=== PATIENT | male | born 1955 | race Caucasian/White ===

== ENCOUNTER 2018-02-09 21:27 | Inpatient (IN) | payer OTHER, SELFPAY ==
--- NOTE | 2018-02-09 22:08 | RAD ---
FRONTAL RADIOGRAPH CHEST: 02/09/2018 HISTORY: Leg swelling and difficulty breathing. COMPARISON: None. FINDINGS: Azygos lobe and fissure noted. The cardiac silhouette is prominent. Hazy bibasilar density noted wi th blunting of the costophrenic angle, suggesting small bilateral pleural effusions. Mild pulmonary vascular congestion. IMPRESSION: Prominent cardiac silhouette with pulmonary vascular congestion and mild bibasilar pleural and parenc hymal opacity. Findings suggest pulmonary edema. Follow-up imaging following treatment advised, to document resolution. POS: MEI
[2018-02-09 22:15] LABS: #Lymphocytes 0.5 thou/uL (1.20-3.40); #Monocytes 0.9 thou/uL (0.11-0.59); #Neutrophils 10.3 thou/uL (1.40-6.50); %Basophils 0.1 % (0.0-1.0); %Eosinophils 0.1 % (0.0-10.0); %Lymphocytes 3.8 % (21.0-51.0); %Monocytes 7.4 % (0.0-10.0); %Neutrophils 88.5 % (42.0-75.0); Hemoglobin 17.3 g/dL (14.0-18.0); Mean Corpuscular HGB CONC 31.6 g/dL (32.0-36.0); Mean Corpuscular Hemoglobin 30.7 pg (27.0-31.0); Mean Corpuscular Volume 97.2 fL (78.0-98.0); Mean Platelet Volume 8.7 fL (7.4-10.4); Platelet Count 142 thou/uL (130-400); RBC Distribution Width 13.7 % (11.5-14.5); Red Blood Cell (RBC) Count 5.65 mill/uL (4.70-6.10); White Blood Cell (WBC) Count 11.7 thou/uL (4.8-10.8)
[2018-02-09] MEDS ORDERED: Furosemide 40 MG/4 ML VIAL ONE (22:18)
[2018-02-09] MEDS ORDERED: Enoxaparin Sodium 100 MG/ML SYRINGE ONE (22:18)
[2018-02-09] MEDS ORDERED: Diltiazem 125 MG/25 ML ONE (22:18)
[2018-02-09] MEDS ORDERED: Diltiazem HCl 125 MG, Admixture Fee 1 EACH in Sodium Chloride 0.9% 100 ML IVPB SCH (22:30)
[2018-02-09 22:31] LABS: ALT (SGPT) 59 U/L (8-55); AST (SGOT) 44 U/L (5-34); Albumin 3.6 g/dL (3.4-4.8); Alkaline Phosphatase 90 U/L (40-150); Anion Gap 22 mmol/L (10-20); BUN (Urea Nitrogen) 58 mg/dL (8.4-25.7); Bilirubin, Total 3.1 mg/dL (0.2-1.2); CK (CPK) 151 U/L (30-200); Calc. Creatinine Clearance 0 mL/min (70-130); Calcium 9.6 mg/dL (7.8-10.44); Carbon Dioxide 18 mmol/L (23-31); Chloride 89 mmol/L (98-107); Estimated GFR-MDRD 51; Globulin 3.2 g/dL (2.4-3.5); Glucose 110 mg/dL (80-115); Potassium 4.8 mmol/L (3.5-5.1); Protein, Total 6.8 g/dL (5.8-8.1); Sodium 124 mmol/L (136-145)
[2018-02-09 22:34] LABS: Troponin I 0.016 ng/mL (< 0.028)
[2018-02-09 22:46] LABS: CKMB 7.8 ng/mL (0-6.6)
[2018-02-10] MEDS ORDERED: Piperacillin/Tazobactam 4.5 GM VIAL ONE (00:16)
[2018-02-10] MEDS ORDERED: Sodium Chloride 0.9% 100 ML ONE (00:16)
[2018-02-10] MEDS ORDERED: Ondansetron ODT 4 MG TAB PO PRN (00:43)
[2018-02-10 01:02] LABS: Bilirubin Small (Negative); Blood, Urine Negative (Negative); Clarity CLOUDY (Clear); Glucose, Urine (Dipstick) Negative (Negative); Leukocyte Negative (Negative); Nitrite Negative (Negative); Protein, Urine (Dipstick) 30 mg/dL (Neg-Trace); Specific Gravity, Urine 1.014 (1.002-1.036); pH, Urine 5.5 (5.0-9.0)
[2018-02-10 01:05] LABS: Bacteria/HPF None Seen HPF (None Seen); Squamous Epithelial 0-3 HPF (0-3); WBC/HPF 0-3 HPF (0-3)
[2018-02-10 01:06] LABS: Pathc Cast-AUWi Flag 5.08 (0-2.49)
[2018-02-10 01:16] LABS: Other Casts/LPF None Seen LPF (0-3 Hyaline)
[2018-02-10 03:07] LABS: #Lymphocytes 0.6 thou/uL (1.20-3.40); #Monocytes 0.9 thou/uL (0.11-0.59); #Neutrophils 9.4 thou/uL (1.40-6.50); %Basophils 0.1 % (0.0-1.0); %Lymphocytes 5.2 % (21.0-51.0); %Monocytes 8.1 % (0.0-10.0); %Neutrophils 86.6 % (42.0-75.0); Hemoglobin 16.5 g/dL (14.0-18.0); Mean Corpuscular HGB CONC 32.7 g/dL (32.0-36.0); Mean Corpuscular Hemoglobin 31.6 pg (27.0-31.0); Mean Corpuscular Volume 96.8 fL (78.0-98.0); Mean Platelet Volume 8.7 fL (7.4-10.4); Platelet Count 150 thou/uL (130-400); RBC Distribution Width 13.6 % (11.5-14.5); Red Blood Cell (RBC) Count 5.21 mill/uL (4.70-6.10); White Blood Cell (WBC) Count 10.9 thou/uL (4.8-10.8)
[2018-02-10 03:16] LABS: Lactic Acid 2.4 mmol/L (0.5-2.2)
[2018-02-10 03:29] LABS: Albumin 3.3 g/dL (3.4-4.8); Anion Gap 18 mmol/L (10-20); BUN (Urea Nitrogen) 55 mg/dL (8.4-25.7); BUN/Creatinine Ratio 43.31; Calc. Creatinine Clearance 93 mL/min (70-130); Carbon Dioxide 19 mmol/L (23-31); Chloride 90 mmol/L (98-107); Estimated GFR-MDRD 57; Glucose 121 mg/dL (80-115); Magnesium 1.7 mg/dL (1.6-2.6); Phosphorus 4.6 mg/dL (2.3-4.7); Potassium 4.1 mmol/L (3.5-5.1); Sodium 123 mmol/L (136-145)
[2018-02-10] MEDS ORDERED: Heparin 10,000 UNITS/ 10 ML VIAL SLOW IVP SCH ×2 (04:00→10:00)
[2018-02-10] MEDS ORDERED: Heparin 25,000 units/D5W 500 ML IVPB SCH ×2 (04:00→10:00)
[2018-02-10 04:45] LABS: CKMB 6.6 ng/mL (0-6.6); Troponin I 0.018 ng/mL (< 0.028)
[2018-02-10] MEDS: Furosemide 40 MG/4 ML VIAL SLOW IVP SCH ×2 (05:51→15:15)
[2018-02-10 06:11] LABS: Hemoglobin 15.4 g/dL (14.0-18.0); Platelet Count 133 thou/uL (130-400)
[2018-02-10 06:18] LABS: Anion Gap 16 mmol/L (10-20); BUN (Urea Nitrogen) 54 mg/dL (8.4-25.7); Calc. Creatinine Clearance 99 mL/min (70-130); Calcium 8.6 mg/dL (7.8-10.44); Carbon Dioxide 22 mmol/L (23-31); Chloride 91 mmol/L (98-107); Estimated GFR-MDRD 62; Glucose 105 mg/dL (80-115); Potassium 3.8 mmol/L (3.5-5.1); Sodium 125 mmol/L (136-145)
--- NOTE | 2018-02-10 06:42 | HP ---
CHIEF COMPLAINT: Shortness of breath. HISTORY OF PRESENT ILLNESS: This is a 62-year-old male with past medical history of hyperlipidemia, diverticulitis, hypertension, anemia presenting with shortness of breath, which has been ongoing for the past 10 days prior to the day of admission. Per patient, he has been noticing that he has been g etting edema in his legs, lower extremity for the past 3 weeks. The patient stated that now the tomas a has gotten so worse that his scrotum is also filled with fluid. The patient states that he last sa w his primary care doctor, Dr. Patel Eddy in 2017. After that he has not seen a doctor in almost a y ear. Per the patient, now he gets shortness of breath with lying down with exertion and this prompte d him to come to the ED to be evaluated. In addition, the patient also had associated symptoms of hi s heart beating very fast. The patient denies any headache, nausea, vomiting, chest pain. REVIEW OF SYSTEMS: The patient admits to heart beating fast, shortness of breath, abdominal discomfo rt, edema in the lower extremities and also in his abdomen. Otherwise, as documented in the HPI. Al l other systems were reviewed and are negative. PAST MEDICAL HISTORY: Hypertension, hyperlipidemia, anemia. FAMILY HISTORY: Reviewed and are negative to this visit. PAST SURGICAL HISTORY: No past surgical history. PSYCHIATRIC HISTORY: The patient has history of anxiety, bipolar. SOCIAL HISTORY: The patient denies any illicit drug use. The patient denies any smoking history; ho wever, per patient, he has been drinking a lot for the past couple of years. The patient stated that he recently quit a month ago and he does not have the appetite to drink. The patient states that he drank very severely because he lost his . ALLERGIES: NAPROXEN. CURRENT MEDICATIONS: The patient takes vitamin B12, iron tablets, multivitamins and thiamine. PHYSICAL EXAMINATION: VITAL SIGNS: Blood pressure is 202/175, pulse of 127, respiratory rate of 18, temperature of 97.5, a nd oxygen saturation of 97 on room air. GENERAL: The patient is lying in bed, reading a book. The patient does not appear to be in any acut e distress. The patient states that he is feeling well, has shortness of breath, but currently resol ving. The patient is able to speak in full sentences. HEENT: Normocephalic, atraumatic. Pupils are equal, round, and reactive to light. Extraocular move ments are intact. No scleral icterus. No JVD noted. Trachea is midline. Supple. LUNGS: The patient has rales bilaterally in the posterior lung banda. No wheezing appreciated. CARDIAC: Irregularly irregular heart rhythm. The patient is tachycardic. ABDOMEN: The patient has ascites noted extending to his back. Abdomen is slightly distended, obese abdomen, nontender. No peritoneal sign. No palpable masses, positive bowel sounds in all quadrants. GENITOURINARY: The patient has edema in the scrotum. EXTREMITIES: Upper extremity and lower extremity, patient has 5/5 upper extremity strength and 5/5 l ower extremity strength. The patient has edema about 4+ pitting edema at the lower extremity. NEUROLOGIC: Cranial nerves II-XII grossly intact. No neurologic deficits noted. SKIN: The patient has a healing excoriated rash on his back. PSYCHIATRIC: The patient has normal affect, alert and oriented x3. IMAGING: Ultrasound of the abdomen showed thickened gallbladder wall. No pancreatitis. Common bile duct that measures 5-8 mm ascites noted. ED COURSE: The patient received vancomycin and Zosyn, diltiazem, normal saline, Lasix of 80, Lovenox , and aspirin. LABORATORY DATA: WBC is 11.7, hemoglobin is 17.3, hematocrit is 54.9, RDW is 13.7, platelet count of 142. Sodium of 124, potassium of 4.8, chloride of 89, carbon dioxide of 18, anion gap of 22, BUN is 58, creatinine is 1.41, GFR is 51, glucose is 110, lactic acid of 3.1, AST of 44, ALT of 59. Creati ne kinase of 151, CK-MB of 7.8. Troponin x1 0.016. BNP is 4384. Urinalysis: Leukoesterase is nega tive, nitrite negative. ASSESSMENT AND PLAN: This is a 62-year-old male being admitted for: 1. Respiratory failure, likely hypoxemic. The patient was satting in the low 90s, high 80s and dell ent has to be placed on oxygen. 2. Acute congestive heart failure, most likely systolic and diastolic congestive heart failure. Cur rently, we will start the patient on congestive heart failure medications. We have consulted Cardiol amy. We have consulted the congestive heart failure clinic. We will give the patient Lasix 80 IV. Alicea has been placed. We will continue the patient on Lasix 40 b.i.d. We will continue labs. We w ill follow up on labs in the morning. The patient is going to be admitted to the [facility] to be monitore d closely. 3. Atrial fibrillation. We started the patient on heparin protocol due to patient's creatinine that is elevated at 1.41, we will do heparin instead of Lovenox. We have consulted Cardiology, will foll ow up with cardiology's recommendations. 4. Hypervolemic hyponatremia likely due to overloaded state. At this point, we are given the patien t Lasix. We will follow up on morning labs to see sodium levels. We have consulted Nephrology regar ding patient's creatinine which is 1.41 and the patient is currently receiving Lasix, so it is very i mportant for Cardiology and Nephrology to work together to get patient from overloaded state with Las ix at the same time not to destroy the patient's renal function. We will follow up with Nephrology's recommendations. 5. Questionable cholecystitis. Ultrasound showed the patient has gallbladder wall thickening. The patient has been started on vancomycin and Zosyn. At this point, we will continue the patient on ant ibiotic and we will monitor the patient closely. The patient's lactic acid is 3.1 and is trending do wn in the setting of 2.4. We will continue to follow the patient very closely. The patient does not have any fever at this time. 6. Hypertension. The patient came in with uncontrolled blood pressure. The patient was started on diltiazem to control his atrial fibrillation with rapid ventricular response. At this point, the pat ient's blood pressure is controlled. We will continue to monitor the patient's blood pressure closel y. We will continue blood pressure medication as needed. 7. History of anxiety and bipolar disorder. Currently, the patient is stable. Continue to monitor the patient. 8. Deep venous thrombosis and gastrointestinal prophylaxis. We will do Pepcid for gastrointestinal prophylaxis and we will do heparin protocol for deep venous thrombosis prophylaxis.
--- NOTE | 2018-02-10 07:30 | ULT ---
RIGHT UPPER QUADRANT ULTRASOUND: DAET: 02/09/2018. COMPARISON: None. HISTORY: Elevated bilirubin. TECHNIQUE: Multiplanar, cheung scale sonographic imaging of the right upper quadrant obtained. FINDINGS: Imaged pancreas is unremarkable. The distal body and tail are obscured by bowel gas. No focal liver lesion is seen. There is free fluid adjacent to the liver and there is a prominent ri ght pleural effusion. There is bidirectional flow within a patent portal vein. Gallbladder wall is thickened measuring in the 5 mm range. Common bile duct measures 6-7 mm, upper limits of normal. Ri ght kidney measures approximately 10.1 cm in craniocaudal dimension and demonstrates no stone, hydron ephrosis, or mass. Ascites is seen in the right upper quadrant, left lower quadrant, and left upper quadrant. [employer] reports a negative Flowers's sign. Small-volume sludge noted within the gallbl adder with no evidence for cholelithiasis. IMPRESSION: Ascites and right pleural effusion. Nonspecific gallbladder wall thickening, which may be secondary to systemic process/volume overload. No cholelithiasis or biliary dilatation. POS: MEI
[2018-02-10] MEDS ORDERED: Eucerin (Mineral Oil/Petrolatum,White) 30 gm Jar TOP PRN (08:01)
[2018-02-10] MEDS ORDERED: Famotidine 20 MG TAB PO PRN (08:01)
[2018-02-10] MEDS ORDERED: Artificial Tears 18 DROP/0.9 ML EA EYE PRN (08:01)
[2018-02-10] MEDS ORDERED: Calcium Carbonate 500 MG ChewTAB PO PRN (08:01)
[2018-02-10] MEDS ORDERED: Chloraseptic Spray 180 ml Bottle PO PRN (08:01)
[2018-02-10] MEDS ORDERED: Senokot 8.6 MG TAB PO PRN (08:01)
[2018-02-10] MEDS ORDERED: Loratadine 10 MG TAB PO PRN (08:01)
[2018-02-10] MEDS ORDERED: Milk Of Magnesia 30 ML UDCUP PO PRN (08:01)
[2018-02-10] MEDS ORDERED: HYDROcodone/Acetaminophen 5/325 mg Tablet PO PRN (08:01)
[2018-02-10] MEDS ORDERED: Loperamide HCl 2 MG CAP PO PRN (08:01)
[2018-02-10] MEDS ORDERED: Ondansetron PF 4 MG/2 ML Vial IVP PRN (08:01)
[2018-02-10] MEDS ORDERED: Nitroglycerin 0.4 MG TAB (25 Tab Bottle) SL PRN (08:01)
[2018-02-10] MEDS ORDERED: hydrALAZINE 20 MG/ML VIAL SLOW IVP PRN (08:01)
[2018-02-10] MEDS ORDERED: Sodium Chloride 0.65% Nasal 44 ML BOT EA NARE PRN (08:01)
[2018-02-10] MEDS ORDERED: Diabetic Tussin 200 MG/10 ML UDCUP PO PRN (08:01)
[2018-02-10] MEDS ORDERED: Enoxaparin Sodium 30 MG/0.3 ML SYRINGE SC SCH (09:00)
[2018-02-10] MEDS ORDERED: Enoxaparin Sodium 100 MG/ML SYRINGE SC SCH (09:00)
[2018-02-10] MEDS: Ferrous Sulfate 325 MG TAB PO SCH (09:19)
[2018-02-10] MEDS: Lisinopril 2.5 MG TAB PO SCH (09:19)
[2018-02-10] MEDS: Multivitamin W/ Minerals 1 TAB PO SCH (09:20)
[2018-02-10] MEDS: Aspirin 81 mg Enteric Coated Tablet PO SCH (09:20)
[2018-02-10] MEDS: Cyanocobalamin (Vitamin B-12) 1,000 MCG TAB PO SCH (09:20)
[2018-02-10 09:54] LABS: Osmolality, Urine 301 mOsm/kg (300-900)
[2018-02-10] MEDS ORDERED: Digoxin 0.5 MG/2 ML AMP SLOW IVP SCH (10:45)
--- NOTE | 2018-02-10 11:10 | PDOC.PN ---
- Subjective Encounter Start Date: 02/10/18 Encounter Start Time: 09:30 -: old records requested/rev Patient seen and examined. No new complaints. No overnight events less dyspnea, feels better, - Objective Resuscitation Status: Resuscitation Status FULL:Full Resuscitation MAR Reviewed: Yes Vital Signs & Weight: Vital Signs (12 hours) Temp Pulse Resp BP BP Pulse Ox 02/10/18 09:19 118 H 99/71 02/10/18 08:00 98 02/10/18 07:18 97.4 F L 101 H 18 95/77 02/10/18 04:35 97.6 F 105 H 20 98/79 98 02/10/18 02:28 97.4 F L 108 H 20 108/85 97 Weight Weight 239 lb 5 oz I&O: 02/09/18 02/10/18 02/11/18 06:59 06:59 06:59 Intake Total 14 Output Total 1000 Balance -986 Result Diagrams: 02/10/18 05:48 02/10/18 05:48 Radiology Reviewed by me: Yes (chest xray noted) EKG Reviewed by me: Yes (afib with RVR) Phys Exam - Physical Examination Constitutional: NAD HEENT: PERRLA, moist MMs, sclera anicteric Neck: no JVD, supple basal rales Cardiovascular: no significant murmur, irregular Gastrointestinal: soft, non-tender, no distention, positive bowel sounds Musculoskeletal: pulses present, edema present Neurological: non-focal, normal sensation, moves all 4 limbs Psychiatric: normal affect, A&O x 3 Skin: no rash, normal turgor Dx/Plan (1) Acute CHF (congestive heart failure) Code(s): I50.9 - HEART FAILURE, UNSPECIFIED Status: Acute Qualifiers: Heart failure type: unspecified Qualified Code(s): I50.9 - Heart failure, unspecified (2) Acute respiratory failure with hypoxia Code(s): J96.01 - ACUTE RESPIRATORY FAILURE WITH HYPOXIA Status: Acute (3) Atrial fibrillation Code(s): I48.91 - UNSPECIFIED ATRIAL FIBRILLATION Status: Acute (4) Hyperuricemia Code(s): E79.0 - HYPERURICEMIA W/O SIGNS OF INFLAM ARTHRIT AND TOPHACEOUS DIS Status: Acute (5) Hyponatremia Code(s): E87.1 - HYPO-OSMOLALITY AND HYPONATREMIA Status: Acute (6) Lactic acidosis Code(s): E87.2 - ACIDOSIS Status: Acute (7) Obesity (BMI 30-39.9) Code(s): E66.9 - OBESITY, UNSPECIFIED Status: Acute (8) Diverticulosis Code(s): K57.90 - DVRTCLOS OF INTEST, PART UNSP, W/O PERF OR ABSCESS W/O BLEED Status: Chronic - Plan cont current plan of care * echo will be done * continue lasix * DC heparin drip and change to lovenox 1 mg /kg * give 0.5 mg digoxin for afib with RVR * cardiology, nephrology and pulmonary on case * send hyponatremia work up * add allopurinol for hyperuricemia * fluid restriction 1200 ml per day * medication reviewed as below * symptomatic treatment. Review of Systems - Review of Systems Constitutional: negative: fever, chills, sweats, weakness, malaise, other Eyes: negative: Pain, Vision Change, Conjunctivae Inflammation, Eyelid Inflammation, Redness, Other ENT: negative: Ear Pain, Ear Discharge, Nose Pain, Nose Discharge, Nose Congestion, Mouth Pain, Mouth Swelling, Throat Pain, Throat Swelling, Other Respiratory: Cough, Shortness of Breath, SOB with Excertion. negative: Dry, Hemoptysis, Pleuritic Pain, Sputum, Wheezing Cardiovascular: orthopnea, edema. negative: chest pain, palpitations, paroxysmal nocturnal dyspnea, light headedness, other Gastrointestinal: negative: Nausea, Vomiting, Abdominal Pain, Diarrhea, Constipation, Melena, Hematochezia, Other Genitourinary: negative: Dysuria, Frequency, Incontinence, Hematuria, Retention , Other Musculoskeletal: negative: Neck Pain, Shoulder Pain, Arm Pain, Back Pain, Hand Pain, Leg Pain, Foot Pain, Other - Medications/Allergies Allergies/Adverse Reactions: Allergies Allergy/AdvReac Type Severity Reaction Status Date / Time cucumber Allergy Verified 02/10/18 02:44 melon Allergy Verified 02/10/18 02:44 naproxen AdvReac Stomach Verified 09/22/16 23:08 Ache Medications: Current Medications Acetaminophen (Tylenol) 650 mg PO Q4H PRN PRN Reason: Headache/Fever/Mild Pain (1-3) Hydrocodone Bitart/Acetaminophen ([place] 5/325) 1 tab PO Q4H PRN PRN Reason: Moderate Pain (4-6) Artificial Tears (Tears Naturale) 0 drop EA EYE PRN PRN PRN Reason: Dry Eyes Aspirin (Ecotrin) 81 mg PO DAILY [facility] Last Admin: 02/10/18 09:20 Dose: 81 mg Calcium Carbonate (Tums) 1,000 mg PO Q4H PRN PRN Reason: Heartburn or Indigestion Cyanocobalamin (Vitamin B-12) 1,000 mcg PO DAILY [facility] Last Admin: 02/10/18 09:20 Dose: 1,000 mcg Digoxin (Lanoxin) 0.5 mg SLOW IVP NOW [facility] Stop: 02/10/18 12:00 Enoxaparin Sodium (Lovenox) 100 mg SC 0900,2100 [facility] Last Admin: 02/10/18 09:59 Dose: 100 mg Famotidine (Pepcid) 20 mg PO BID [facility] Ferrous Sulfate (Feosol) 325 mg PO DAILY [facility] Last Admin: 02/10/18 09:19 Dose: 325 mg Furosemide (Lasix) 40 mg SLOW IVP 0600,1400 [facility] Last Admin: 02/10/18 05:51 Dose: 40 mg Guaifenesin (Robitussin Sf) 200 mg PO Q4H PRN PRN Reason: Cough Hydralazine HCl (Apresoline) 10 mg SLOW IVP Q4H PRN PRN Reason: Systolic BP > 180 Iron/Minerals/Multivitamins (Theragran M) 1 tab PO DAILY [facility] Last Admin: 02/10/18 09:20 Dose: 1 tab Lisinopril (Zestril) 2.5 mg PO DAILY [facility] Last Admin: 02/10/18 09:19 Dose: 2.5 mg Loperamide HCl (Imodium) 2 mg PO PRN PRN PRN Reason: Diarrhea/Loose Stools Loratadine (Claritin) 10 mg PO DAILYPRN PRN PRN Reason: Sinus Symptoms Magnesium Hydroxide (Milk Of Magnesium) 30 ml PO DAILYPRN PRN PRN Reason: Constipation Mineral Oil/White Petrolatum (Eucerin Cream) 0 gm TOP BIDPRN PRN PRN Reason: Dry Skin Nitroglycerin (Nitrostat) 0.4 mg SL Q5MIN PRN PRN Reason: Chest Pain Ondansetron HCl (Zofran Odt) 4 mg PO Q6H PRN PRN Reason: Nausea/Vomiting Ondansetron HCl (Zofran) 4 mg IVP Q6H PRN PRN Reason: Nausea/Vomiting Phenol (Chloraseptic [place] 180 Ml Bot) 0 ml PO PRN PRN PRN Reason: Sore Throat Pneumococcal 13-Valent Conj Vacc (Prevnar) 0.5 ml IM .ONCE ONE Stop: 02/11/18 09:01 Last Admin: 02/10/18 03:23 Dose: Not Given Senna (Senokot) 2 tab PO HSPRN PRN PRN Reason: Constipation Sodium Chloride (Flush - Normal Saline) 10 ml IVF Q12H PRN PRN Reason: Saline Flush Sodium Chloride (Flush - Normal Saline) 10 ml IVF PRN PRN PRN Reason: Saline Flush Sodium Chloride ([place] Nasal [place] 0.65%) 0 ml EA NARE QIDPRN PRN PRN Reason: Nasal Congestion Temazepam (Restoril) 15 mg PO HSPRN PRN PRN Reason: Insomnia Thiamine HCl (Thiamine) 100 mg PO DAILY [facility] Last Admin: 02/10/18 09:19 Dose: 100 mg
[2018-02-10 12:59] LABS: Creatinine, Urine 48.71 mg/dL (63-166)
--- NOTE | 2018-02-10 13:00 | CON ---
DATE OF CONSULTATION: 02/10/2018 CONSULTING PHYSICIAN: Dr. Sienna Chavez REQUESTING PHYSICIAN: Dr. Javier Knight REASON FOR CONSULTATION: Hypervolemia, acute kidney injury and hyponatremia. IMPRESSION: 1. Acute kidney injury. This is likely cardiorenal. 2. Hyponatremia. This is likely dilutional hyponatremia. 3. Hypervolemia, query cause. May be related to right-sided heart failure; however, cannot complete ly rule out nephrotic syndrome. PLAN: 1. The patient to continue with loop diuretic and monitor the input and output with a goal of about 2 liters negative over 24 hours. 2. If the patient seems not to be responding to the current dose this may be increased or augmented with thiazide. Although the hyponatremia might be a limiting factor. 3. Renally dose all medications. 4. Patient to be on low salt diet. 5. Echocardiogram workup. 6. Urine protein analysis to identify the degree of proteinuria in this patient. 7. Further management will be dependent on the clinical course. HISTORY OF PRESENT ILLNESS: History is that of a 62-year-old gentleman who came in here with shortne ss of breath noted with a huge bilateral lower extremity edema that has been building up over the pas t several weeks. The patient denies any frothy urine. Denies any hematuria. As a result of the fin ding of elevated creatinine of 1.4 and significant peripheral edema, the decision was taken to involv e Renal in the management of this case. Further laboratory investigation revealed hyponatremia with sodium at 125. PAST MEDICAL HISTORY: Hypertension, dyslipidemia and anemia. FAMILY HISTORY: No family history of kidney disease. SOCIAL HISTORY: Denies illicit drug use. No alcohol, no tobacco use; however, the patient did drink quite a bit for the past couple of years. REVIEW OF SYSTEMS: As documented in the body of the history. All the other systems reviewed were no t found to be significantly related to presenting illness. ALLERGIES: NAPROXEN. PHYSICAL EXAMINATION: GENERAL: The patient is noted to be ill looking with huge bilateral lower extremity edema. VITAL SIGNS: Afebrile with temperature 97.4, pulse 101, respiratory rate of 18, O2 saturation 98% on 2 liters with a blood pressure 95/77. HEENT: Unremarkable. Moist oral mucosa. Neck was supple. No conjunctival injection or icterus. CARDIOVASCULAR SYSTEM: First and second heart sounds were heard. RESPIRATORY SYSTEM: Clear to auscultation. DIGESTIVE SYSTEM: Revealed a benign abdomen with positive bowel sounds. EXTREMITIES: Showed 3-4+ bilateral lower extremity edema. SKIN: No new gross rash. LYMPHATICS: No peripheral lymphadenopathy. SUMMARY: A 62-year-old gentleman who presented here with worsening lower extremity edema and shortne ss of breath. Thank you for this consultation. We will follow with you.
[2018-02-10 13:16] LABS: Sodium, Urine 40 mmol/L (Not Available)
[2018-02-10] MEDS ORDERED: Potassium Chloride 20 MEQ TAB PO SCH (13:45)
--- NOTE | 2018-02-10 14:16 | RAD ---
PORTABLE UPRIGHT FRONTAL CHEST RADIOGRAPH: DATE: 02/10/2018. COMPARISON: 02/09/2018. HISTORY: Short of breath. FINDINGS: Azygous lobe and fissure noted. Pulmonary vascular congestion and perihilar interstitial prominence have slightly worsened. Hazy bib asilar pleural and parenchymal opacity noted, worsened as well. NO pneumothorax. IMPRESSION:Findings suggesting worsening pulmonary edema. Infectious pneumonitis in the lung bases c annot be excluded. Followup imaging following treatment to document resolution advised. POS: MEI
--- NOTE | 2018-02-10 14:40 | CON ---
DATE OF CONSULTATION: 02/10/2018 SERVICE: Pulmonary Medicine. REASON FOR CONSULTATION: CU patient. HISTORY OF PRESENT ILLNESS: The patient is a 62-year-old white male with past medical history significant for 14 days of increasing lower extremity swelling. He also had a 7-day history of increasing shortness of breath. This was slow to progress. It was associated with a cough. He was bringing up clear, white thick sputum. Because of progressive shortness of breath, he presented to the Emergency Department and was discovered to be in atrial fibrillation with a rapid rate. Overnight, he was given some rate control medications. He remains irregular, but his rate is under good control now. His shortness of breath has significantly improved with multiple diuretics. He denies any current fevers or chills. He has not been having any nausea, vomiting, diarrhea. Otherwise, he is in his usual state of health. He has multiple features consistent with obstructive sleep apnea. PAST MEDICAL HISTORY: 1. Hypertension. 2. Dyslipidemia. 3. Atrial fibrillation. 4. Anemia. PAST SURGICAL HISTORY: None. FAMILY HISTORY: Noncontributory. SOCIAL HISTORY: The patient denies smoking any tobacco. That being said, he is a very heavy marijuana user. He discontinued this a couple of years ago. He has a remote history of heavy alcohol use, but has had none for the last month. He denies any other illicit drugs. He has no exposure to chemicals, asbestos or tuberculosis. ALLERGIES: NAPROXEN. MEDICATIONS: List of his inpatient medications were reviewed. No specific updates were made at this time. PHYSICAL EXAMINATION: VITAL SIGNS: Afebrile, pulse 101, blood pressure 95/77, respirations 18, saturation 98% on 2 liters nasal cannula. GENERAL: The patient is awake and alert, in no apparent distress. LUNGS: Excellent air entry. There is no prolonged expiratory phase, wheezing or rhonchi. Crackles are present. HEART: Normal rate. Irregular. ABDOMEN: Soft, nontender, nondistended. Bowel sounds are positive. MUSCULOSKELETAL: No cyanosis or clubbing. There is extensive 3+ edema of the bilateral lower extremities. NEUROLOGIC: Grossly nonfocal. LABORATORY DATA: WBC 10.9, hemoglobin 15.4, platelets 133,000. Creatinine 1.19 and beautifully down trending, BUN 54 and stable, bicarbonate 22, anion gap 16 and down trending. Potassium 3.8, sodium 125, also improving. Cortisol level is 17, TSH 3.2. Troponin negative x2. BNP 4400. Magnesium and phosphorus fall within the normal limits. IMAGING: Chest x-ray demonstrates cephalization of the bilateral lung banda, bilateral pleural effusions, cardiomegaly, widened chris angle. ASSESSMENT: 1. Acute hypoxic respiratory failure. 2. Atrial fibrillation with rapid ventricular response. 3. Hypertension. 4. Obstructive sleep apnea, suspected. DISCUSSION AND PLAN: The patient is doing fine from a respiratory standpoint. His sodium is moving in the right direction with the Lasix. As such, he can be transitioned out of the IMCU to the telemetry unit. We will continue rate control medications through time. Pulmonary Critical Care will continue to follow along for the time being as we wean oxygen. 70 minutes have been devoted to this patient in various activities. I personally reviewed all imaging studies and laboratory data noted within this document. For fifty percent of this time, I was interacting with the patient at the bedside or coordinating care with the care team. For the remainder of the time I was immediately available to the patient in the hospital unit. DONNA
[2018-02-10] MEDS ORDERED: Magnesium 2 GM/50 ML 2 GM in Premix Bag 1 BAG IVPB SCH (15:00)
[2018-02-10] MEDS ORDERED: Magnesium 2 GM/50 ML 50 GM in Premix Bag 1 BAG IVPB SCH (15:00)
[2018-02-10] MEDS: Digoxin 0.5 MG/2 ML AMP SLOW IVP SCH ×2 (17:19→23:46)
[2018-02-10 18:59] LABS: Anion Gap 14 mmol/L (10-20); BUN (Urea Nitrogen) 52 mg/dL (8.4-25.7); Calc. Creatinine Clearance 102 mL/min (70-130); Calcium 8.7 mg/dL (7.8-10.44); Carbon Dioxide 24 mmol/L (23-31); Chloride 92 mmol/L (98-107); Estimated GFR-MDRD 64; Glucose 87 mg/dL (80-115); Potassium 3.1 mmol/L (3.5-5.1); Sodium 127 mmol/L (136-145)
[2018-02-10] MEDS: Apixaban 5 MG TAB PO SCH (20:28)
[2018-02-10] MEDS: Famotidine 20 MG TAB PO SCH (20:28)
--- NOTE | 2018-02-10 23:05 | CON ---
DATE OF CONSULTATION: 02/10/2018 INDICATION FOR CONSULTATION: A 62-year-old gentleman with new onset congestive heart failure. HISTORY OF PRESENT ILLNESS: This is a very unfortunate 62-year-old gentleman who has been noticing l ower extremity edema and shortness of breath for several weeks. He said actually on 01/04/2018, he n oticed some swelling of the lower extremities. He has also noticed some rapid heart rates and palpit ations, which have been ongoing for at least a year he says. Recently he became more short of breath and required admission to the hospital. He does have a history of hypertension and hypercholesterol emia. He has no history of diabetes or tobacco abuse. He was seen in the hospital, echocardiogram h as been performed. Ejection fraction is estimated at about 10%-20% actually is more on 10% to 15%, b ut he has no recollection of any previous cardiac history. He has drunk heavily in the past. He daisha d he stopped about 34 days ago, previously that he drank up to 2 bottles of wine a day and had occasi onal beer. He also was found to have atrial fibrillation with rapid ventricular response. PAST MEDICAL HISTORY: Significant for diverticulosis, alcohol use. He has had some blood in the sto ol in the past, most likely due to the diverticulitis. He also has a history of some palpitations an d supposedly were PACs. SOCIAL HISTORY: He is . He has no children. He has no tobacco abuse. He stopped drinking 34 days ago as noted above. Occupation: He is retired. Previously he stayed home and took care of the house while his worked. FAMILY HISTORY: Noncontributory. MEDICATIONS PRIOR TO ADMISSION: Included multivitamins and iron, also thiamine. PRESENT MEDICATIONS: Allopurinol, Eliquis 5 mg b.i.d., aspirin 81 mg a day, vitamin B12 1000 mcg juana ly, digoxin has been given IV for rate control and he is on Pepcid as well as ferrous sulfate and [place] 40 mg IV b.i.d. He is also on lisinopril 2.5 mg a day, multivitamins, thiamin, nitroglycerin as n eeded, Tylenol, calcium carbonate, and other p.r.n. medications. ALLERGIES: He says he is intolerant to IBUPROFEN and NAPROSYN, which give him GI upset. REVIEW OF SYSTEMS: Twelve point review of systems is positive for lower abdominal discomfort and blo ating after he eats. He has pain and swelling in the lower extremities with edema. Otherwise, 12 po int review of systems was unremarkable. PHYSICAL EXAMINATION: GENERAL: Reveals an elderly gentleman who actually appears somewhat older than his stated age. VITAL SIGNS: His blood pressure at this time was 84/63, heart rate was 89 and irregular. HEENT: Shows the head to be normocephalic and atraumatic. Carotid pulses are present. I did not he ar any bruits. CHEST: Appears to be clear to auscultation. I did not hear any rales, rhonchi or wheezing at this t osmani. CARDIOVASCULAR: Reveals a tachycardia, irregular rhythm. I did not hear any significant murmurs, he aves, thrills, bruits or rubs. ABDOMEN: Shows obesity with positive bowel sounds. I cannot palpate any masses or tenderness, but h e does have ascites and also has edema around the flank areas. EXTREMITIES: Showed 3-4+ edema including the feet all the way up to the abdominal area compatible wi th anasarca. I cannot palpate pedal pulses due to the edema. NEUROLOGIC: The patient appears to be intact. I cannot elicit any gross focal motor deficits. SKIN: Warm and dry at this time. LABORATORY DATA: Shows sodium of 125. His creatinine is 1.19, BUN of 54. Potassium was 3.8, hemogl obin was 16.5 with WBC of 10.9. Cardiac enzymes are unremarkable. His chest x-ray does show some ev idence of some congestion with small bilateral pleural effusions. Echocardiogram as noted above. Ej ection fraction at best is about 15%-20%, most likely is more along the 10%-15% range. He does have what appears to be left ventricular and right ventricular dilatation, also mild right atrial and left atrial dilatation as well as moderate to severe mitral and tricuspid valve regurgitation and EKG blanca ws atrial fibrillation. IMPRESSION: 1. Atrial fibrillation with rapid ventricular response, which is under better control, left with IV digoxin. 2. New onset congestive heart failure with severe decrease in left ventricular systolic function, co mpatible with cardiomyopathy. This may be due either to his history of alcohol abuse or may be due t o atrial fibrillation with rapid ventricular response. We will also need to rule out evidence of und erlying coronary disease as he has an abnormal EKG with decreased R-wave progression in the anterior leads, which could be compatible with an old anterior myocardial infarction. Once he is diuresed, we will need to reevaluate his situation. He most likely will need to undergo cardiac catheterization to evaluate his coronary arteries. Hopefully, the ejection fraction will improve with medical manage ment. He has been placed on beta-blockers as well as Lasix and digoxin. If he is able to tolerate t he beta blockers. We will increase the dose as needed. The heart rate is under better control at th is time. We will continue this. 3. Hypertension, which he is actually hypotensive, those medications are being held. We will see if he can tolerate the Coreg as well as lisinopril for his heart failure. 4. History of hypercholesterolemia. We can always revisit with these medications later. At this ti me it is not imperative that he follow this medication guidelines while in the hospital at this time. 5. History of alcohol abuse. He stopped drinking about a month ago and his cardiomyopathy may be a reflection of the alcohol abuse. We will be more than happy to continue to follow the patient with y ou, agree with the present management and he will need to have further diuresis if necessary. He may need to undergo inotropic support with dobutamine in order to increase urinary output. If he does not have substantial output, we would also ask Nephrology to visit with the patient due to his h yponatremia unless we are able to control that. We will also fluid restrict the patient to less damian n 1200 mL in 24-hour period.
[2018-02-11] MEDS: Furosemide 40 MG/4 ML VIAL SLOW IVP SCH ×2 (05:30→14:17)
[2018-02-11 06:17] LABS: Anion Gap 13 mmol/L (10-20); BUN (Urea Nitrogen) 47 mg/dL (8.4-25.7); Calc. Creatinine Clearance 113 mL/min (70-130); Calcium 8.1 mg/dL (7.8-10.44); Carbon Dioxide 24 mmol/L (23-31); Chloride 94 mmol/L (98-107); Estimated GFR-MDRD 75; Glucose 83 mg/dL (80-115); Sodium 128 mmol/L (136-145)
[2018-02-11] MEDS ORDERED: Magnesium Sulfate 4 GM in Sodium Chloride 0.9% 250 ML 250 ML IVPB SCH (06:45)
[2018-02-11] MEDS ORDERED: Prevnar 13-Val Conj/PF 0.5 ML SYRINGE IM ONE (09:00)
[2018-02-11] MEDS: Aspirin 81 mg Enteric Coated Tablet PO SCH (09:17)
[2018-02-11] MEDS: Cyanocobalamin (Vitamin B-12) 1,000 MCG TAB PO SCH (09:17)
[2018-02-11] MEDS: Allopurinol 100 MG TAB PO SCH (09:17)
[2018-02-11] MEDS: Potassium Chloride 20 MEQ TAB PO SCH ×4 (09:17→23:34)
[2018-02-11] MEDS: Apixaban 5 MG TAB PO SCH ×2 (09:18→21:29)
[2018-02-11] MEDS: Lisinopril 2.5 MG TAB PO SCH (09:18)
[2018-02-11] MEDS: Ferrous Sulfate 325 MG TAB PO SCH (09:18)
[2018-02-11] MEDS: Digoxin 0.125 MG TAB PO SCH (09:18)
[2018-02-11] MEDS: Multivitamin W/ Minerals 1 TAB PO SCH (09:18)
[2018-02-11] MEDS: Famotidine 20 MG TAB PO SCH ×2 (09:19→21:29)
--- NOTE | 2018-02-11 10:15 | PDOC.PN ---
- Subjective Encounter Start Date: 02/11/18 Encounter Start Time: 07:20 Patient seen and examined. No new complaints. No overnight events pt is feeling better, edema reducing - Objective Resuscitation Status: Resuscitation Status FULL:Full Resuscitation MAR Reviewed: Yes Vital Signs & Weight: Vital Signs (12 hours) Temp Pulse Resp BP BP Pulse Ox 02/11/18 09:18 83 97/66 02/11/18 08:01 100 02/11/18 07:23 98.6 F 74 100/66 100 02/11/18 04:18 98.2 F 87 18 95/70 99 02/11/18 02:09 100 02/11/18 00:19 98.8 F 77 17 92/67 100 02/10/18 23:46 78 Weight Weight 233 lb 4 oz I&O: 02/10/18 02/11/18 02/12/18 06:59 06:59 06:59 Intake Total 14 1082 Output Total 1000 4650 Balance -899 -0879 Result Diagrams: 02/10/18 05:48 02/11/18 03:16 EKG Reviewed by me: Yes (afib) Phys Exam - Physical Examination Constitutional: NAD HEENT: PERRLA, moist MMs, sclera anicteric Neck: no JVD, supple Respiratory: no wheezing, no rhonchi basal rales Cardiovascular: irregular SM+ Gastrointestinal: soft, non-tender, no distention, positive bowel sounds Musculoskeletal: pulses present, edema present Neurological: non-focal, normal sensation, moves all 4 limbs Lymphatic: no nodes Psychiatric: normal affect, A&O x 3 Skin: no rash, normal turgor Dx/Plan (1) Acute respiratory failure with hypoxia Code(s): J96.01 - ACUTE RESPIRATORY FAILURE WITH HYPOXIA Status: Acute (2) Atrial fibrillation Code(s): I48.91 - UNSPECIFIED ATRIAL FIBRILLATION Status: Acute (3) Hyperuricemia Code(s): E79.0 - HYPERURICEMIA W/O SIGNS OF INFLAM ARTHRIT AND TOPHACEOUS DIS Status: Acute (4) Hyponatremia Code(s): E87.1 - HYPO-OSMOLALITY AND HYPONATREMIA Status: Acute (5) Lactic acidosis Code(s): E87.2 - ACIDOSIS Status: Acute (6) Obesity (BMI 30-39.9) Code(s): E66.9 - OBESITY, UNSPECIFIED Status: Acute (7) Diverticulosis Code(s): K57.90 - DVRTCLOS OF INTEST, PART UNSP, W/O PERF OR ABSCESS W/O BLEED Status: Chronic (8) Acute systolic ACC/AHA stage C congestive heart failure Code(s): I50.21 - ACUTE SYSTOLIC (CONGESTIVE) HEART FAILURE Status: Acute (9) Hypokalemia Code(s): E87.6 - HYPOKALEMIA Status: Acute (10) Hypomagnesemia Code(s): E83.42 - HYPOMAGNESEMIA Status: Acute (11) Moderate tricuspid regurgitation Code(s): I07.1 - RHEUMATIC TRICUSPID INSUFFICIENCY Status: Acute (12) Severe mitral regurgitation Code(s): I34.0 - NONRHEUMATIC MITRAL (VALVE) INSUFFICIENCY Status: Acute - Plan cont current plan of care * replace potassium and magnesium * continue diuresis * once euvolemic, he will need ischemic evaluation * may need lifevest before discharge * transfer to [facility] * medication reviewed as below * symptomatic treatment. Review of Systems - Review of Systems ENT: negative: Ear Pain, Ear Discharge, Nose Pain, Nose Discharge, Nose Congestion, Mouth Pain, Mouth Swelling, Throat Pain, Throat Swelling, Other Respiratory: Shortness of Breath, SOB with Excertion. negative: Cough, Dry, Hemoptysis, Pleuritic Pain, Sputum, Wheezing Cardiovascular: orthopnea, edema. negative: chest pain, palpitations, paroxysmal nocturnal dyspnea, light headedness, other Gastrointestinal: negative: Nausea, Vomiting, Abdominal Pain, Diarrhea, Constipation, Melena, Hematochezia, Other Genitourinary: negative: Dysuria, Frequency, Incontinence, Hematuria, Retention , Other Musculoskeletal: negative: Neck Pain, Shoulder Pain, Arm Pain, Back Pain, Hand Pain, Leg Pain, Foot Pain, Other Skin: negative: Rash, Lesions, Trey, Bruising, Other - Medications/Allergies Allergies/Adverse Reactions: Allergies Allergy/AdvReac Type Severity Reaction Status Date / Time cucumber Allergy Verified 02/10/18 02:44 melon Allergy Verified 02/10/18 02:44 naproxen AdvReac Stomach Verified 09/22/16 23:08 Ache Medications: Current Medications Acetaminophen (Tylenol) 650 mg PO Q4H PRN PRN Reason: Headache/Fever/Mild Pain (1-3) Hydrocodone Bitart/Acetaminophen ([place] 5/325) 1 tab PO Q4H PRN PRN Reason: Moderate Pain (4-6) Allopurinol (Zyloprim) 100 mg PO DAILY [facility] Last Admin: 02/11/18 09:17 Dose: 100 mg Apixaban (Eliquis) 5 mg PO BID [facility] Last Admin: 02/11/18 09:18 Dose: 5 mg Artificial Tears (Tears Naturale) 0 drop EA EYE PRN PRN PRN Reason: Dry Eyes Aspirin (Ecotrin) 81 mg PO DAILY [facility] Last Admin: 02/11/18 09:17 Dose: 81 mg Calcium Carbonate (Tums) 1,000 mg PO Q4H PRN PRN Reason: Heartburn or Indigestion Cyanocobalamin (Vitamin B-12) 1,000 mcg PO DAILY [facility] Last Admin: 02/11/18 09:17 Dose: 1,000 mcg Digoxin (Lanoxin) 0.125 mg PO QAM [facility] Last Admin: 02/11/18 09:18 Dose: 0.125 mg Famotidine (Pepcid) 20 mg PO BID [facility] Last Admin: 02/11/18 09:19 Dose: Not Given Ferrous Sulfate (Feosol) 325 mg PO DAILY [facility] Last Admin: 02/11/18 09:18 Dose: 325 mg Furosemide (Lasix) 40 mg SLOW IVP 0600,1400 [facility] Last Admin: 02/11/18 05:30 Dose: 40 mg Guaifenesin (Robitussin Sf) 200 mg PO Q4H PRN PRN Reason: Cough Hydralazine HCl (Apresoline) 10 mg SLOW IVP Q4H PRN PRN Reason: Systolic BP > 180 Iron/Minerals/Multivitamins (Theragran M) 1 tab PO DAILY [facility] Last Admin: 02/11/18 09:18 Dose: 1 tab Lisinopril (Zestril) 2.5 mg PO DAILY [facility] Last Admin: 02/11/18 09:18 Dose: 2.5 mg Loperamide HCl (Imodium) 2 mg PO PRN PRN PRN Reason: Diarrhea/Loose Stools Loratadine (Claritin) 10 mg PO DAILYPRN PRN PRN Reason: Sinus Symptoms Magnesium Hydroxide (Milk Of Magnesium) 30 ml PO DAILYPRN PRN PRN Reason: Constipation Mineral Oil/White Petrolatum (Eucerin Cream) 0 gm TOP BIDPRN PRN PRN Reason: Dry Skin Nitroglycerin (Nitrostat) 0.4 mg SL Q5MIN PRN PRN Reason: Chest Pain Ondansetron HCl (Zofran Odt) 4 mg PO Q6H PRN PRN Reason: Nausea/Vomiting Ondansetron HCl (Zofran) 4 mg IVP Q6H PRN PRN Reason: Nausea/Vomiting Phenol (Chloraseptic [place] 180 Ml Bot) 0 ml PO PRN PRN PRN Reason: Sore Throat Potassium Chloride (K-Dur) 40 meq PO BID-WM [facility] Last Admin: 02/11/18 09:17 Dose: 40 meq Senna (Senokot) 2 tab PO HSPRN PRN PRN Reason: Constipation Sodium Chloride (Flush - Normal Saline) 10 ml IVF Q12H PRN PRN Reason: Saline Flush Last Admin: 02/10/18 20:30 Dose: 10 ml Sodium Chloride (Flush - Normal Saline) 10 ml IVF PRN PRN PRN Reason: Saline Flush Sodium Chloride ([place] Nasal [place] 0.65%) 0 ml EA NARE QIDPRN PRN PRN Reason: Nasal Congestion Temazepam (Restoril) 15 mg PO HSPRN PRN PRN Reason: Insomnia Thiamine HCl (Thiamine) 100 mg PO DAILY [facility] Last Admin: 02/11/18 09:18 Dose: 100 mg
--- NOTE | 2018-02-11 13:12 | PRG ---
DATE OF SERVICE: 02/11/2018 SERVICE: Pulmonary Medicine. INTERVAL HISTORY: The patient is doing outstanding from a respiratory standpoint. He is breathing much better. He denies any current chest pain, nausea, vomiting, fevers or chills. The dyspnea on exertion is improved dramatically. He is still coughing and bringing up a little bit of white phlegm. OBJECTIVE: VITAL SIGNS: Afebrile, pulse 93, blood pressure 107/62, respirations 18, saturation 100% on room air. GENERAL: The patient is awake, alert, no apparent distress. LUNGS: Excellent air entry. There is no prolonged expiratory phase or wheezing present. HEART: Normal rate, regular. ABDOMEN: Soft, nontender, nondistended. Bowel sounds are positive. MUSCULOSKELETAL: No cyanosis or clubbing. There is 2-3+ pitting in the bilateral lower extremities with chronic stasis changes. NEUROLOGIC: Grossly nonfocal. LABORATORY DATA: Sodium 128, potassium 3.0. Basic metabolic profile is otherwise unremarkable. Magnesium is 1.4. Blood cultures x2 are unremarkable. IMAGING: Echocardiogram demonstrates a 15%-20% ejection fraction. He also has severe valvular abnormalities. ASSESSMENT: 1. Acute hypoxic respiratory failure, resolved. 2. Atrial fibrillation with rapid ventricular response. 3. Acute systolic heart failure. 4. Obstructive sleep apnea, suspected. 5. Hypertension. DISCUSSION AND PLAN: We will continue to diurese the patient down to euvolemia. I will replace potassium and magnesium today. From my perspective, he is stable for transition to the telemetry unit. There is no further requirements for inpatient Pulmonary or Critical Care opinion, as such when he leaves the [facility], I will sign off. We have him follow up with me in clinic in the outpatient setting to arrange a polysomnogram. DONNA
[2018-02-11 18:42] LABS: Anion Gap 9 mmol/L (10-20); BUN (Urea Nitrogen) 34 mg/dL (8.4-25.7); Calc. Creatinine Clearance 125 mL/min (70-130); Calcium 8.6 mg/dL (7.8-10.44); Carbon Dioxide 35 mmol/L (23-31); Chloride 91 mmol/L (98-107); Estimated GFR-MDRD 83; Glucose 85 mg/dL (80-115); Sodium 133 mmol/L (136-145)
[2018-02-11 18:55] LABS: Potassium 2.3 mmol/L (3.5-5.1)
--- NOTE | 2018-02-11 20:15 | PRG ---
DATE OF SERVICE: 02/11/2018 SUBJECTIVE: The patient is seen and examined, seems to be doing much better. OBJECTIVE: VITAL SIGNS: Afebrile with temperature 98.7, pulse 93, blood pressure 107/62, O2 sat 100%. HEENT: Unremarkable with moist oral mucosa. No conjunctival injection or icterus. NECK: Supple. CARDIOVASCULAR: First and second heart sounds were heard. RESPIRATORY: Clear to auscultation. DIGESTIVE: Revealed a benign abdomen, positive bowel sounds. EXTREMITIES: Showed 2-3+ bilateral lower extremity edema. Input and output showed the patient produce about 3.6 liters of urine . IMPRESSION: Hypervolemia, likely in the context of right-sided heart failure and hypokalemia. PLAN: 1. We will continue with current diuretic regimen. 2. Replete potassium. 3. Further management will be dependent on the clinical course.
[2018-02-12] MEDS: Furosemide 40 MG/4 ML VIAL SLOW IVP SCH ×2 (05:17→14:01)
[2018-02-12 05:20] LABS: Hemoglobin 14.8 g/dL (14.0-18.0); Platelet Count 138 thou/uL (130-400)
[2018-02-12] MEDS: Digoxin 0.125 MG TAB PO SCH (08:46)
[2018-02-12] MEDS: Aspirin 81 mg Enteric Coated Tablet PO SCH (08:46)
[2018-02-12] MEDS: Multivitamin W/ Minerals 1 TAB PO SCH (08:46)
[2018-02-12] MEDS: Allopurinol 100 MG TAB PO SCH (08:47)
[2018-02-12] MEDS: Lisinopril 2.5 MG TAB PO SCH (08:47)
[2018-02-12] MEDS: Famotidine 20 MG TAB PO SCH ×2 (08:47→20:07)
[2018-02-12] MEDS: Cyanocobalamin (Vitamin B-12) 1,000 MCG TAB PO SCH (08:48)
[2018-02-12] MEDS: Ferrous Sulfate 325 MG TAB PO SCH (08:48)
[2018-02-12] MEDS: Apixaban 5 MG TAB PO SCH ×2 (08:48→20:07)
[2018-02-12] MEDS: Potassium Chloride 20 MEQ TAB PO SCH ×3 (09:26→20:07)
[2018-02-12] MEDS ORDERED: Magnesium Sulfate 4 GM in Sodium Chloride 0.9% 250 ML 250 ML IVPB SCH (09:30)
--- NOTE | 2018-02-12 09:45 | PDOC.PN ---
- Subjective Encounter Start Date: 02/12/18 Encounter Start Time: 07:20 Patient seen and examined. No new complaints. No overnight events still has edema but improving, no dyspnea or chest pain - Objective Resuscitation Status: Resuscitation Status FULL:Full Resuscitation MAR Reviewed: Yes Vital Signs & Weight: Vital Signs (12 hours) Temp Pulse Resp BP BP Pulse Ox 02/12/18 08:47 85 113/74 02/12/18 08:46 85 02/12/18 07:15 98.5 F 85 16 113/74 95 02/12/18 03:16 98.1 F 95 18 103/77 94 L 02/11/18 23:34 85 18 102/69 95 Weight Weight 222 lb 1.6 oz I&O: 02/11/18 02/12/18 02/13/18 06:59 06:59 06:59 Intake Total 1082 1144 Output Total 4650 6250 Balance -2286 -8452 Result Diagrams: 02/12/18 04:49 02/11/18 18:12 EKG Reviewed by me: Yes Phys Exam - Physical Examination Constitutional: NAD HEENT: PERRLA, moist MMs, sclera anicteric Neck: no JVD, supple Respiratory: no wheezing, no rhonchi few basal rales Cardiovascular: irregular SM+ Gastrointestinal: soft, non-tender, no distention, positive bowel sounds Musculoskeletal: pulses present, edema present Neurological: non-focal, normal sensation Psychiatric: normal affect, A&O x 3 Skin: no rash, normal turgor Dx/Plan (1) Acute systolic ACC/AHA stage C congestive heart failure Code(s): I50.21 - ACUTE SYSTOLIC (CONGESTIVE) HEART FAILURE Status: Acute (2) Acute respiratory failure with hypoxia Code(s): J96.01 - ACUTE RESPIRATORY FAILURE WITH HYPOXIA Status: Resolved (3) Atrial fibrillation Code(s): I48.91 - UNSPECIFIED ATRIAL FIBRILLATION Status: Acute Comment: rate controlled, on digoxin and elliquis (4) Hyperuricemia Code(s): E79.0 - HYPERURICEMIA W/O SIGNS OF INFLAM ARTHRIT AND TOPHACEOUS DIS Status: Acute Comment: on allopurinol (5) Hyponatremia Code(s): E87.1 - HYPO-OSMOLALITY AND HYPONATREMIA Status: Acute (6) Lactic acidosis Code(s): E87.2 - ACIDOSIS Status: Resolved (7) Obesity (BMI 30-39.9) Code(s): E66.9 - OBESITY, UNSPECIFIED Status: Chronic (8) Diverticulosis Code(s): K57.90 - DVRTCLOS OF INTEST, PART UNSP, W/O PERF OR ABSCESS W/O BLEED Status: Chronic (9) Hypokalemia Code(s): E87.6 - HYPOKALEMIA Status: Acute (10) Hypomagnesemia Code(s): E83.42 - HYPOMAGNESEMIA Status: Acute (11) Moderate tricuspid regurgitation Code(s): I07.1 - RHEUMATIC TRICUSPID INSUFFICIENCY Status: Acute (12) Severe mitral regurgitation Code(s): I34.0 - NONRHEUMATIC MITRAL (VALVE) INSUFFICIENCY Status: Acute - Plan cont current plan of care * continue iv lasix * replace potassium and magnesium today * cardiology following * still needs few more days to make him euvolemic * medication reviewed as below * symptomatic treatment. Review of Systems - Review of Systems Eyes: negative: Pain, Vision Change, Conjunctivae Inflammation, Eyelid Inflammation, Redness, Other ENT: negative: Ear Pain, Ear Discharge, Nose Pain, Nose Discharge, Nose Congestion, Mouth Pain, Mouth Swelling, Throat Pain, Throat Swelling, Other Respiratory: SOB with Excertion. negative: Cough, Dry, Shortness of Breath, Hemoptysis, Pleuritic Pain, Sputum, Wheezing Cardiovascular: edema. negative: chest pain, palpitations, orthopnea, paroxysmal nocturnal dyspnea, light headedness, other Gastrointestinal: negative: Nausea, Vomiting, Abdominal Pain, Diarrhea, Constipation, Melena, Hematochezia, Other Genitourinary: negative: Dysuria, Frequency, Incontinence, Hematuria, Retention , Other Musculoskeletal: negative: Neck Pain, Shoulder Pain, Arm Pain, Back Pain, Hand Pain, Leg Pain, Foot Pain, Other Skin: negative: Rash, Lesions, Trey, Bruising, Other - Medications/Allergies Allergies/Adverse Reactions: Allergies Allergy/AdvReac Type Severity Reaction Status Date / Time cucumber Allergy Verified 02/10/18 02:44 melon Allergy Verified 02/10/18 02:44 naproxen AdvReac Stomach Verified 09/22/16 23:08 Ache Medications: Current Medications Acetaminophen (Tylenol) 650 mg PO Q4H PRN PRN Reason: Headache/Fever/Mild Pain (1-3) Hydrocodone Bitart/Acetaminophen ([place] 5/325) 1 tab PO Q4H PRN PRN Reason: Moderate Pain (4-6) Allopurinol (Zyloprim) 100 mg PO DAILY [facility] Last Admin: 02/12/18 08:47 Dose: 100 mg Apixaban (Eliquis) 5 mg PO BID [facility] Last Admin: 02/12/18 08:48 Dose: 5 mg Artificial Tears (Tears Naturale) 0 drop EA EYE PRN PRN PRN Reason: Dry Eyes Aspirin (Ecotrin) 81 mg PO DAILY [facility] Last Admin: 02/12/18 08:46 Dose: 81 mg Calcium Carbonate (Tums) 1,000 mg PO Q4H PRN PRN Reason: Heartburn or Indigestion Cyanocobalamin (Vitamin B-12) 1,000 mcg PO DAILY [facility] Last Admin: 02/12/18 08:48 Dose: 1,000 mcg Digoxin (Lanoxin) 0.125 mg PO QAM [facility] Last Admin: 02/12/18 08:46 Dose: 0.125 mg Famotidine (Pepcid) 20 mg PO BID [facility] Last Admin: 02/12/18 08:47 Dose: Not Given Ferrous Sulfate (Feosol) 325 mg PO DAILY [facility] Last Admin: 02/12/18 08:48 Dose: 325 mg Furosemide (Lasix) 40 mg SLOW IVP 0600,1400 [facility] Last Admin: 02/12/18 05:17 Dose: 40 mg Guaifenesin (Robitussin Sf) 200 mg PO Q4H PRN PRN Reason: Cough Hydralazine HCl (Apresoline) 10 mg SLOW IVP Q4H PRN PRN Reason: Systolic BP > 180 Magnesium Sulfate 4 gm/ Sodium (Chloride) 258 mls @ 86 mls/hr IVPB NOW [facility] Stop: 02/12/18 12:29 Last Admin: 02/12/18 09:25 Dose: 258 mls Iron/Minerals/Multivitamins (Theragran M) 1 tab PO DAILY [facility] Last Admin: 02/12/18 08:46 Dose: 1 tab Lisinopril (Zestril) 2.5 mg PO DAILY [facility] Last Admin: 02/12/18 08:47 Dose: 2.5 mg Loperamide HCl (Imodium) 2 mg PO PRN PRN PRN Reason: Diarrhea/Loose Stools Loratadine (Claritin) 10 mg PO DAILYPRN PRN PRN Reason: Sinus Symptoms Magnesium Hydroxide (Milk Of Magnesium) 30 ml PO DAILYPRN PRN PRN Reason: Constipation Mineral Oil/White Petrolatum (Eucerin Cream) 0 gm TOP BIDPRN PRN PRN Reason: Dry Skin Nitroglycerin (Nitrostat) 0.4 mg SL Q5MIN PRN PRN Reason: Chest Pain Ondansetron HCl (Zofran Odt) 4 mg PO Q6H PRN PRN Reason: Nausea/Vomiting Ondansetron HCl (Zofran) 4 mg IVP Q6H PRN PRN Reason: Nausea/Vomiting Phenol (Chloraseptic [place] 180 Ml Bot) 0 ml PO PRN PRN PRN Reason: Sore Throat Potassium Chloride (K-Dur) 40 meq PO TID [facility] Last Admin: 02/12/18 09:26 Dose: 40 meq Senna (Senokot) 2 tab PO HSPRN PRN PRN Reason: Constipation Sodium Chloride (Flush - Normal Saline) 10 ml IVF Q12H PRN PRN Reason: Saline Flush Last Admin: 02/12/18 08:48 Dose: 10 ml Sodium Chloride (Flush - Normal Saline) 10 ml IVF PRN PRN PRN Reason: Saline Flush Sodium Chloride ([place] Nasal [place] 0.65%) 0 ml EA NARE QIDPRN PRN PRN Reason: Nasal Congestion Temazepam (Restoril) 15 mg PO HSPRN PRN PRN Reason: Insomnia Thiamine HCl (Thiamine) 100 mg PO DAILY [facility] Last Admin: 02/12/18 08:48 Dose: 100 mg
[2018-02-12 13:03] LABS: Anion Gap 11 mmol/L (10-20); BUN (Urea Nitrogen) 23 mg/dL (8.4-25.7); Calc. Creatinine Clearance 142 mL/min (70-130); Calcium 8.2 mg/dL (7.8-10.44); Carbon Dioxide 32 mmol/L (23-31); Chloride 97 mmol/L (98-107); Estimated GFR-MDRD Greater than 90; Glucose 127 mg/dL (80-115); Potassium 3.3 mmol/L (3.5-5.1); Sodium 137 mmol/L (136-145)
--- NOTE | 2018-02-12 17:48 | PDOC.CTH ---
Cardiology Progress Note - Subjective Pt. seen and eval. no new events or complaints. - Objective Vital Signs Temp Pulse Pulse Pulse Resp BP BP 02/12/18 15:42 98 F 98 18 02/12/18 11:16 98.4 F 86 16 02/12/18 10:23 95 90 102/69 02/12/18 08:47 85 113/74 02/12/18 08:46 85 02/12/18 07:15 98.5 F 85 16 BP BP BP Pulse Ox 02/12/18 15:42 104/64 95 02/12/18 11:16 108/67 94 L 02/12/18 10:23 103/62 02/12/18 08:47 02/12/18 08:46 02/12/18 07:15 113/74 95 Admit Weight 239 lb 5 oz Weight 222 lb 1.6 oz 02/11/18 02/12/18 02/13/18 06:59 06:59 06:59 Intake Total 1082 1144 Output Total 4650 6250 Balance -5838 -6317 - Physical Examination General/Neuro: alert & oriented x3 Neck: carotid US brisk Lungs: other: (decr. bases.) Heart: other: (irreg.) Abdomen: soft Extremities: + edema B - Labs Result Diagrams: 02/12/18 04:49 02/12/18 12:30 Troponin/CKMB CK-MB (CK-2) 6.6 ng/mL (0-6.6) 02/10/18 03:58 Troponin I 0.018 ng/mL (< 0.028) 02/10/18 03:58 - Assessment/Plan 1. Atrial fibrillation. : rate controlled. continue anti-coagulation. 2. CMY: uncertain etiology.When the edema has resolved then plan for a cath to r /o CAD as a possible etiology. He does have a history of ETOH abuse and this may be the etiology. 3. Hyponatremia. 4. Severe MR: evaluate at the time of cardiac cath. If the EF improves and the heart size decreases the MR may improve. If not he may need some sort of intervention. 5. ETOH abuse. He assures me that he has stopped drinking. 6. CHF : systolic , etiology not yet determined. Improved with diuresis but the lower extremities are still 2-3+. Continue diuretics. plan for cath later this week or early next week.
--- NOTE | 2018-02-12 19:56 | PRG ---
DATE OF SERVICE: 02/12/2018 SUBJECTIVE: The patient was seen and examined, seems to be doing much better, noted with the followi ng vital signs. PHYSICAL EXAMINATION: VITAL SIGNS: Afebrile, temperature 98, pulse 86, respiratory rate of 18, O2 sat of 95%, blood pressu re 104/64. HEENT: Unremarkable. Moist oral mucosa. Neck is supple. No conjunctival injection or icterus. CARDIOVASCULAR: First and second heart sounds are heard. RESPIRATORY: Clear to auscultation. DIGESTIVE: Revealed a benign abdomen with positive bowel sounds. EXTREMITIES: No peripheral edema. SKIN: No new gross rash. LYMPHATICS: No peripheral lymphadenopathy. INPUT AND OUTPUT: The patient put out about 6 liters over the past 24 hours. IMPRESSION: Hypervolemia in the context of cardiac failure. PLAN: 1. The patient will continue with current diuretic regimen. 2. Replete all the electrolytes that are deficient. 3. Further management to be dependent on the clinical course.
[2018-02-12] MEDS: Temazepam 15 MG CAP PO PRN (23:45)
[2018-02-13] MEDS ORDERED: Digoxin 0.5 MG/2 ML AMP SLOW IVP SCH ×2 (05:00→05:15)
[2018-02-13 05:28] LABS: Anion Gap 13 mmol/L (10-20); BUN (Urea Nitrogen) 20 mg/dL (8.4-25.7); Calc. Creatinine Clearance 136 mL/min (70-130); Calcium 8.3 mg/dL (7.8-10.44); Carbon Dioxide 32 mmol/L (23-31); Chloride 96 mmol/L (98-107); Estimated GFR-MDRD Greater than 90; Glucose 114 mg/dL (80-115); Magnesium 1.4 mg/dL (1.6-2.6); Potassium 3.6 mmol/L (3.5-5.1); Sodium 137 mmol/L (136-145)
[2018-02-13] MEDS: Furosemide 40 MG/4 ML VIAL SLOW IVP SCH ×2 (05:38→16:41)
[2018-02-13] MEDS ORDERED: Magnesium Sulfate 4 GM in Sodium Chloride 0.9% 250 ML 250 ML IVPB SCH (06:45)
[2018-02-13] MEDS ORDERED: Carvedilol 3.125 MG TAB PO SCH (07:45)
[2018-02-13] MEDS: Digoxin 0.125 MG TAB PO SCH (08:18)
[2018-02-13] MEDS: Carvedilol 3.125 MG TAB PO SCH ×2 (08:18→21:06)
[2018-02-13] MEDS: Aspirin 81 mg Enteric Coated Tablet PO SCH (08:19)
[2018-02-13] MEDS: Potassium Chloride 20 MEQ TAB PO SCH ×3 (08:19→21:06)
[2018-02-13] MEDS: Ferrous Sulfate 325 MG TAB PO SCH (08:19)
[2018-02-13] MEDS: Apixaban 5 MG TAB PO SCH ×2 (08:19→21:06)
[2018-02-13] MEDS: Famotidine 20 MG TAB PO SCH ×2 (08:20→21:10)
[2018-02-13] MEDS: Allopurinol 100 MG TAB PO SCH (08:36)
[2018-02-13] MEDS: Cyanocobalamin (Vitamin B-12) 1,000 MCG TAB PO SCH (08:36)
[2018-02-13] MEDS: Multivitamin W/ Minerals 1 TAB PO SCH (08:37)
[2018-02-13] MEDS: Lisinopril 2.5 MG TAB PO SCH (08:37)
--- NOTE | 2018-02-13 09:32 | PDOC.PN ---
- Subjective Encounter Start Date: 02/13/18 Encounter Start Time: 07:30 pt has variable rate control on monitor, given digoxin last night, still has leg edema - Objective Resuscitation Status: Resuscitation Status FULL:Full Resuscitation MAR Reviewed: Yes Vital Signs & Weight: Vital Signs (12 hours) Temp Pulse Resp BP BP BP Pulse Ox 02/13/18 08:37 126 H 114/73 02/13/18 08:18 126 H 02/13/18 08:14 97.8 F 126 H 16 114/73 96 02/13/18 05:42 112 H 02/13/18 05:38 112 H 02/13/18 05:35 117 H 20 109/67 02/13/18 04:00 98 F 123 H 20 112/84 93 L 02/12/18 23:18 102 H 16 108/70 95 Weight Admit Weight 239 lb 5 oz Weight 216 lb 3.2 oz I&O: 02/12/18 02/13/18 02/14/18 06:59 06:59 06:59 Intake Total 1144 1345 Output Total 6250 3450 Balance -5807 -3778 Result Diagrams: 02/12/18 04:49 02/13/18 04:27 EKG Reviewed by me: Yes (afib with RVR) Phys Exam - Physical Examination Constitutional: NAD HEENT: PERRLA, moist MMs, sclera anicteric Neck: no JVD, supple Respiratory: no wheezing, no rales, no rhonchi Cardiovascular: irregular SM+ Gastrointestinal: soft, non-tender, no distention, positive bowel sounds Musculoskeletal: pulses present, edema present Neurological: non-focal, normal sensation, moves all 4 limbs Lymphatic: no nodes Psychiatric: normal affect, A&O x 3 Skin: no rash, normal turgor Dx/Plan (1) Acute systolic ACC/AHA stage C congestive heart failure Code(s): I50.21 - ACUTE SYSTOLIC (CONGESTIVE) HEART FAILURE Status: Acute (2) Acute respiratory failure with hypoxia Code(s): J96.01 - ACUTE RESPIRATORY FAILURE WITH HYPOXIA Status: Resolved (3) Atrial fibrillation Code(s): I48.91 - UNSPECIFIED ATRIAL FIBRILLATION Status: Acute Comment: variable rate, on digoxin and elliquis (4) Hyperuricemia Code(s): E79.0 - HYPERURICEMIA W/O SIGNS OF INFLAM ARTHRIT AND TOPHACEOUS DIS Status: Acute Comment: on allopurinol (5) Hyponatremia Code(s): E87.1 - HYPO-OSMOLALITY AND HYPONATREMIA Status: Acute (6) Lactic acidosis Code(s): E87.2 - ACIDOSIS Status: Resolved (7) Obesity (BMI 30-39.9) Code(s): E66.9 - OBESITY, UNSPECIFIED Status: Chronic (8) Diverticulosis Code(s): K57.90 - DVRTCLOS OF INTEST, PART UNSP, W/O PERF OR ABSCESS W/O BLEED Status: Chronic (9) Hypokalemia Code(s): E87.6 - HYPOKALEMIA Status: Resolved (10) Hypomagnesemia Code(s): E83.42 - HYPOMAGNESEMIA Status: Acute (11) Moderate tricuspid regurgitation Code(s): I07.1 - RHEUMATIC TRICUSPID INSUFFICIENCY Status: Acute (12) Severe mitral regurgitation Code(s): I34.0 - NONRHEUMATIC MITRAL (VALVE) INSUFFICIENCY Status: Acute - Plan cont current plan of care * replace magnesium * continue digoxin, low dose coreg added * medication reviewed as below * symptomatic treatment * continue diuresis * will need cardiac cath before discharge. Review of Systems - Review of Systems ENT: negative: Ear Pain, Ear Discharge, Nose Pain, Nose Discharge, Nose Congestion, Mouth Pain, Mouth Swelling, Throat Pain, Throat Swelling, Other Respiratory: SOB with Excertion. negative: Cough, Dry, Shortness of Breath, Hemoptysis, Pleuritic Pain, Sputum, Wheezing Cardiovascular: edema. negative: chest pain, palpitations, orthopnea, paroxysmal nocturnal dyspnea, light headedness, other Gastrointestinal: negative: Nausea, Vomiting, Abdominal Pain, Diarrhea, Constipation, Melena, Hematochezia, Other Genitourinary: negative: Dysuria, Frequency, Incontinence, Hematuria, Retention , Other Musculoskeletal: negative: Neck Pain, Shoulder Pain, Arm Pain, Back Pain, Hand Pain, Leg Pain, Foot Pain, Other - Medications/Allergies Allergies/Adverse Reactions: Allergies Allergy/AdvReac Type Severity Reaction Status Date / Time cucumber Allergy Verified 02/10/18 02:44 melon Allergy Verified 02/10/18 02:44 naproxen AdvReac Stomach Verified 09/22/16 23:08 Ache Medications: Current Medications Acetaminophen (Tylenol) 650 mg PO Q4H PRN PRN Reason: Headache/Fever/Mild Pain (1-3) Hydrocodone Bitart/Acetaminophen ([place] 5/325) 1 tab PO Q4H PRN PRN Reason: Moderate Pain (4-6) Allopurinol (Zyloprim) 100 mg PO DAILY [facility] Last Admin: 02/13/18 08:36 Dose: 100 mg Apixaban (Eliquis) 5 mg PO BID [facility] Last Admin: 02/13/18 08:19 Dose: 5 mg Artificial Tears (Tears Naturale) 0 drop EA EYE PRN PRN PRN Reason: Dry Eyes Aspirin (Ecotrin) 81 mg PO DAILY [facility] Last Admin: 02/13/18 08:19 Dose: 81 mg Calcium Carbonate (Tums) 1,000 mg PO Q4H PRN PRN Reason: Heartburn or Indigestion Carvedilol (Coreg) 3.125 mg PO BID [facility] Last Admin: 02/13/18 08:18 Dose: 3.125 mg Cyanocobalamin (Vitamin B-12) 1,000 mcg PO DAILY [facility] Last Admin: 02/13/18 08:36 Dose: 1,000 mcg Digoxin (Lanoxin) 0.125 mg PO QAM [facility] Last Admin: 02/13/18 08:18 Dose: 0.125 mg Famotidine (Pepcid) 20 mg PO BID [facility] Last Admin: 02/13/18 08:20 Dose: Not Given Ferrous Sulfate (Feosol) 325 mg PO DAILY [facility] Last Admin: 02/13/18 08:19 Dose: 325 mg Furosemide (Lasix) 40 mg SLOW IVP 0600,1400 [facility] Last Admin: 02/13/18 05:38 Dose: 40 mg Guaifenesin (Robitussin Sf) 200 mg PO Q4H PRN PRN Reason: Cough Hydralazine HCl (Apresoline) 10 mg SLOW IVP Q4H PRN PRN Reason: Systolic BP > 180 Magnesium Sulfate 4 gm/ Sodium (Chloride) 258 mls @ 86 mls/hr IVPB ONE [facility] Stop: 02/13/18 12:00 Last Admin: 02/13/18 07:59 Dose: 258 mls Iron/Minerals/Multivitamins (Theragran M) 1 tab PO DAILY [facility] Last Admin: 02/13/18 08:37 Dose: 1 tab Lisinopril (Zestril) 2.5 mg PO DAILY [facility] Last Admin: 02/13/18 08:37 Dose: 2.5 mg Loperamide HCl (Imodium) 2 mg PO PRN PRN PRN Reason: Diarrhea/Loose Stools Loratadine (Claritin) 10 mg PO DAILYPRN PRN PRN Reason: Sinus Symptoms Magnesium Hydroxide (Milk Of Magnesium) 30 ml PO DAILYPRN PRN PRN Reason: Constipation Mineral Oil/White Petrolatum (Eucerin Cream) 0 gm TOP BIDPRN PRN PRN Reason: Dry Skin Nitroglycerin (Nitrostat) 0.4 mg SL Q5MIN PRN PRN Reason: Chest Pain Ondansetron HCl (Zofran Odt) 4 mg PO Q6H PRN PRN Reason: Nausea/Vomiting Ondansetron HCl (Zofran) 4 mg IVP Q6H PRN PRN Reason: Nausea/Vomiting Phenol (Chloraseptic [place] 180 Ml Bot) 0 ml PO PRN PRN PRN Reason: Sore Throat Potassium Chloride (K-Dur) 40 meq PO TID [facility] Last Admin: 02/13/18 08:19 Dose: 40 meq Senna (Senokot) 2 tab PO HSPRN PRN PRN Reason: Constipation Sodium Chloride (Flush - Normal Saline) 10 ml IVF Q12H PRN PRN Reason: Saline Flush Last Admin: 02/13/18 08:00 Dose: 10 ml Sodium Chloride (Flush - Normal Saline) 10 ml IVF PRN PRN PRN Reason: Saline Flush Last Admin: 02/13/18 05:39 Dose: 10 ml Sodium Chloride ([place] Nasal [place] 0.65%) 0 ml EA NARE QIDPRN PRN PRN Reason: Nasal Congestion Temazepam (Restoril) 15 mg PO HSPRN PRN PRN Reason: Insomnia Last Admin: 02/12/18 23:45 Dose: 15 mg Thiamine HCl (Thiamine) 100 mg PO DAILY [facility] Last Admin: 02/13/18 08:37 Dose: 100 mg
--- NOTE | 2018-02-13 13:31 | PDOC.CTH ---
<Miley Segura - Last Filed: 02/13/18 13:29> Cardiology Progress Note - Subjective The pt seen and examined. No overnight events. No cardiac complaints. - Objective Vital Signs Temp Pulse Resp BP BP BP Pulse Ox 02/13/18 08:37 126 H 114/73 02/13/18 08:18 126 H 02/13/18 08:14 97.8 F 126 H 16 114/73 96 02/13/18 05:42 112 H 02/13/18 05:38 112 H 02/13/18 05:35 117 H 20 109/67 02/13/18 04:00 98 F 123 H 20 112/84 93 L Admit Weight 239 lb 5 oz Weight 216 lb 3.2 oz 02/12/18 02/13/18 02/14/18 06:59 06:59 06:59 Intake Total 1144 1345 Output Total 6250 3450 Balance -6129 -9662 - Physical Examination General/Neuro: alert & oriented x3 Neck: no JVD present Lungs: CTA Heart: RRR, other: (irregular) Abdomen: soft Extremities: other: (3-4+ pitting BLE) - Labs Result Diagrams: 02/12/18 04:49 02/13/18 04:27 Troponin/CKMB CK-MB (CK-2) 6.6 ng/mL (0-6.6) 02/10/18 03:58 Troponin I 0.018 ng/mL (< 0.028) 02/10/18 03:58 - Assessment/Plan 1. Atrial fibrillation. Required Dig 0.25mg IV this AM for HR up to 160. Rate well controlled at this time with Coreg 3.125mg BID. continue anti-coagulation. 2. CMY: uncertain etiology.When the edema has resolved then plan for a cath to r /o CAD as a possible etiology (possible next Saturday). He does have a history of ETOH abuse and this may be the etiology. 3. Hyponatremia - improved 4. Severe MR: evaluate at the time of cardiac cath. If the EF improves and the heart size decreases the MR may improve. If not he may need some sort of intervention. 5. ETOH abuse. He assures me that he has stopped drinking. 6. Aute on Chronic systolic CHF: etiology not yet determined. Improved with dieresis but the lower extremities are still 2-3+. Continue diuretics. On Fluid restriction 1500ml/24hrs. * plan for cath early next week. Review of Systems - Review of Systems Constitutional: reports: no symptoms reported EENTM: reports: no symptoms reported Respiratory: reports: no symptoms reported Cardiac (ROS): reports: no symptoms reported ABD/GI: reports: no symptoms reported : reports: no symptoms reported Musculoskeletal: reports: no symptoms reported <Keo Chow - Last Filed: 02/13/18 16:35> Cardiology Progress Note - Objective Vital Signs Temp Pulse Resp BP BP BP Pulse Ox 02/13/18 13:30 93/56 L 02/13/18 11:15 97.9 F 93 14 111/70 95 02/13/18 09:16 96 02/13/18 08:37 126 H 114/73 02/13/18 08:18 126 H 02/13/18 08:14 97.8 F 126 H 16 114/73 96 02/13/18 05:42 112 H 02/13/18 05:38 112 H 02/13/18 05:35 117 H 20 109/67 Admit Weight 239 lb 5 oz Weight 216 lb 3.2 oz 02/12/18 02/13/18 02/14/18 06:59 06:59 06:59 Intake Total 1144 1345 Output Total 6250 3450 Balance -6836 -2353 - Labs Result Diagrams: 02/12/18 04:49 02/13/18 04:27 Troponin/CKMB CK-MB (CK-2) 6.6 ng/mL (0-6.6) 02/10/18 03:58 Troponin I 0.018 ng/mL (< 0.028) 02/10/18 03:58 - Assessment/Plan Pt. seen and eval. by me. I agree with the A/P by the [employer]. He still has significant edema. The renal function remains stable. Continue diuresis. He may need dopamine if the BP decreases too much.
--- NOTE | 2018-02-13 21:48 | PRG ---
DATE OF SERVICE: 02/13/2018 SUBJECTIVE: The patient seen today and seems to be doing much better, hemodynamically stable. OBJECTIVE: HEENT: Unremarkable with moist oral mucosa. NECK: Supple. No conjunctival injection or icterus. CARDIOVASCULAR: First and second heart sounds were heard. RESPIRATORY: Clear to auscultation. DIGESTIVE: Revealed an benign abdomen. EXTREMITIES: Showed some peripheral edema, but much improving. IMPRESSION: 1. Hypervolemia, responding well to diuretics. 2. Anasarca, possibly related to heart failure, we cannot completely rule out nephrotic syndrome. 3. Therefore, we will renally dose all medications and avoid potentially nephrotoxic agents. 4. Further management to be dependent on the clinical course.
[2018-02-14] MEDS: Temazepam 15 MG CAP PO PRN ×2 (00:03→20:55)
[2018-02-14] MEDS: Acetaminophen 325 MG TAB PO PRN (00:04)
[2018-02-14 12:46] LABS: Anion Gap 10 mmol/L (10-20); BUN (Urea Nitrogen) 18 mg/dL (8.4-25.7); Calc. Creatinine Clearance 152 mL/min (70-130); Calcium 8.1 mg/dL (7.8-10.44); Carbon Dioxide 32 mmol/L (23-31); Chloride 97 mmol/L (98-107); Estimated GFR-MDRD Greater than 90; Glucose 125 mg/dL (80-115); Magnesium 1.5 mg/dL (1.6-2.6); Potassium 3.9 mmol/L (3.5-5.1); Sodium 135 mmol/L (136-145)
[2018-02-14] MEDS: Aspirin 81 mg Enteric Coated Tablet PO SCH (13:35)
[2018-02-14] MEDS: Furosemide 40 MG/4 ML VIAL SLOW IVP SCH ×2 (13:35→16:06)
[2018-02-14] MEDS: Allopurinol 100 MG TAB PO SCH (13:35)
[2018-02-14] MEDS: Apixaban 5 MG TAB PO SCH ×2 (13:35→20:57)
[2018-02-14] MEDS: Lisinopril 2.5 MG TAB PO SCH (13:36)
[2018-02-14] MEDS: Multivitamin W/ Minerals 1 TAB PO SCH (13:36)
[2018-02-14] MEDS: Cyanocobalamin (Vitamin B-12) 1,000 MCG TAB PO SCH (13:36)
[2018-02-14] MEDS: Carvedilol 3.125 MG TAB PO SCH ×2 (13:36→21:30)
[2018-02-14] MEDS: Digoxin 0.125 MG TAB PO SCH (13:36)
[2018-02-14] MEDS: Famotidine 20 MG TAB PO SCH ×2 (13:36→20:54)
[2018-02-14] MEDS: Ferrous Sulfate 325 MG TAB PO SCH (13:36)
[2018-02-14] MEDS ORDERED: Communication Order-Pharmacy FS SCH (13:45)
--- NOTE | 2018-02-14 14:41 | PDOC.PN ---
- Subjective Encounter Start Date: 02/14/18 Encounter Start Time: 08:40 Patient seen and examined. No new complaints. No overnight events - Objective Resuscitation Status: Resuscitation Status FULL:Full Resuscitation MAR Reviewed: Yes Vital Signs & Weight: Weight Admit Weight 239 lb 5 oz Weight 216 lb 3.2 oz I&O: 02/13/18 02/14/18 02/15/18 06:59 06:59 06:59 Intake Total 1345 720 Output Total 3450 1550 Balance -2105 -830 Result Diagrams: 02/12/18 04:49 02/14/18 03:30 EKG Reviewed by me: Yes (afib) Phys Exam - Physical Examination Constitutional: NAD HEENT: PERRLA, moist MMs, sclera anicteric Neck: no JVD, supple Respiratory: no wheezing, no rales, no rhonchi Cardiovascular: no rub, irregular SM+ Gastrointestinal: soft, non-tender, no distention, positive bowel sounds Musculoskeletal: pulses present, edema present Neurological: non-focal, normal sensation Psychiatric: normal affect, A&O x 3 Skin: no rash, normal turgor Dx/Plan (1) Acute systolic ACC/AHA stage C congestive heart failure Code(s): I50.21 - ACUTE SYSTOLIC (CONGESTIVE) HEART FAILURE Status: Acute (2) Acute respiratory failure with hypoxia Code(s): J96.01 - ACUTE RESPIRATORY FAILURE WITH HYPOXIA Status: Resolved (3) Atrial fibrillation Code(s): I48.91 - UNSPECIFIED ATRIAL FIBRILLATION Status: Acute Comment: variable rate, on digoxin and elliquis (4) Hyperuricemia Code(s): E79.0 - HYPERURICEMIA W/O SIGNS OF INFLAM ARTHRIT AND TOPHACEOUS DIS Status: Acute Comment: on allopurinol (5) Hyponatremia Code(s): E87.1 - HYPO-OSMOLALITY AND HYPONATREMIA Status: Acute (6) Lactic acidosis Code(s): E87.2 - ACIDOSIS Status: Resolved (7) Obesity (BMI 30-39.9) Code(s): E66.9 - OBESITY, UNSPECIFIED Status: Chronic (8) Diverticulosis Code(s): K57.90 - DVRTCLOS OF INTEST, PART UNSP, W/O PERF OR ABSCESS W/O BLEED Status: Chronic (9) Hypokalemia Code(s): E87.6 - HYPOKALEMIA Status: Resolved (10) Hypomagnesemia Code(s): E83.42 - HYPOMAGNESEMIA Status: Acute (11) Moderate tricuspid regurgitation Code(s): I07.1 - RHEUMATIC TRICUSPID INSUFFICIENCY Status: Acute (12) Severe mitral regurgitation Code(s): I34.0 - NONRHEUMATIC MITRAL (VALVE) INSUFFICIENCY Status: Acute - Plan cont current plan of care * continue IV lasix for diuresis * replace mangesium and potassium * cardiac cath next week. Review of Systems - Review of Systems ENT: negative: Ear Pain, Ear Discharge, Nose Pain, Nose Discharge, Nose Congestion, Mouth Pain, Mouth Swelling, Throat Pain, Throat Swelling, Other Respiratory: negative: Cough, Dry, Shortness of Breath, Hemoptysis, SOB with Excertion, Pleuritic Pain, Sputum, Wheezing Cardiovascular: edema. negative: chest pain, palpitations, orthopnea, paroxysmal nocturnal dyspnea, light headedness, other Gastrointestinal: negative: Nausea, Vomiting, Abdominal Pain, Diarrhea, Constipation, Melena, Hematochezia, Other Genitourinary: negative: Dysuria, Frequency, Incontinence, Hematuria, Retention , Other Musculoskeletal: negative: Neck Pain, Shoulder Pain, Arm Pain, Back Pain, Hand Pain, Leg Pain, Foot Pain, Other Skin: negative: Rash, Lesions, Trey, Bruising, Other - Medications/Allergies Allergies/Adverse Reactions: Allergies Allergy/AdvReac Type Severity Reaction Status Date / Time cucumber Allergy Verified 02/10/18 02:44 melon Allergy Verified 02/10/18 02:44 naproxen AdvReac Stomach Verified 09/22/16 23:08 Ache Medications: Current Medications Acetaminophen (Tylenol) 650 mg PO Q4H PRN PRN Reason: Headache/Fever/Mild Pain (1-3) Last Admin: 02/14/18 00:04 Dose: 650 mg Hydrocodone Bitart/Acetaminophen ([place] 5/325) 1 tab PO Q4H PRN PRN Reason: Moderate Pain (4-6) Allopurinol (Zyloprim) 100 mg PO DAILY [facility] Last Admin: 02/13/18 08:36 Dose: 100 mg Apixaban (Eliquis) 5 mg PO BID [facility] Last Admin: 02/13/18 21:06 Dose: 5 mg Artificial Tears (Tears Naturale) 0 drop EA EYE PRN PRN PRN Reason: Dry Eyes Aspirin (Ecotrin) 81 mg PO DAILY [facility] Last Admin: 02/13/18 08:19 Dose: 81 mg Calcium Carbonate (Tums) 1,000 mg PO Q4H PRN PRN Reason: Heartburn or Indigestion Carvedilol (Coreg) 3.125 mg PO BID [facility] Last Admin: 02/13/18 21:06 Dose: 3.125 mg Cyanocobalamin (Vitamin B-12) 1,000 mcg PO DAILY [facility] Last Admin: 02/13/18 08:36 Dose: 1,000 mcg Digoxin (Lanoxin) 0.125 mg PO QAM [facility] Last Admin: 02/13/18 08:18 Dose: 0.125 mg Famotidine (Pepcid) 20 mg PO BID [facility] Last Admin: 02/13/18 21:10 Dose: Not Given Ferrous Sulfate (Feosol) 325 mg PO DAILY [facility] Last Admin: 02/13/18 08:19 Dose: 325 mg Furosemide (Lasix) 40 mg SLOW IVP 0600,1400 [facility] Last Admin: 02/13/18 16:41 Dose: 40 mg Guaifenesin (Robitussin Sf) 200 mg PO Q4H PRN PRN Reason: Cough Hydralazine HCl (Apresoline) 10 mg SLOW IVP Q4H PRN PRN Reason: Systolic BP > 180 Iron/Minerals/Multivitamins (Theragran M) 1 tab PO DAILY [facility] Last Admin: 02/13/18 08:37 Dose: 1 tab Lisinopril (Zestril) 2.5 mg PO DAILY [facility] Last Admin: 02/13/18 08:37 Dose: 2.5 mg Loperamide HCl (Imodium) 2 mg PO PRN PRN PRN Reason: Diarrhea/Loose Stools Loratadine (Claritin) 10 mg PO DAILYPRN PRN PRN Reason: Sinus Symptoms Magnesium Hydroxide (Milk Of Magnesium) 30 ml PO DAILYPRN PRN PRN Reason: Constipation Magnesium Oxide (Magnesium Oxide) 400 mg PO BID [facility] Mineral Oil/White Petrolatum (Eucerin Cream) 0 gm TOP BIDPRN PRN PRN Reason: Dry Skin Nitroglycerin (Nitrostat) 0.4 mg SL Q5MIN PRN PRN Reason: Chest Pain Ondansetron HCl (Zofran Odt) 4 mg PO Q6H PRN PRN Reason: Nausea/Vomiting Ondansetron HCl (Zofran) 4 mg IVP Q6H PRN PRN Reason: Nausea/Vomiting Phenol (Chloraseptic [place] 180 Ml Bot) 0 ml PO PRN PRN PRN Reason: Sore Throat Potassium Chloride (K-Dur) 20 meq PO BID [facility] Senna (Senokot) 2 tab PO HSPRN PRN PRN Reason: Constipation Sodium Chloride (Flush - Normal Saline) 10 ml IVF Q12H PRN PRN Reason: Saline Flush Last Admin: 02/13/18 21:06 Dose: 10 ml Sodium Chloride (Flush - Normal Saline) 10 ml IVF PRN PRN PRN Reason: Saline Flush Last Admin: 02/13/18 05:39 Dose: 10 ml Sodium Chloride ([place] Nasal [place] 0.65%) 0 ml EA NARE QIDPRN PRN PRN Reason: Nasal Congestion Temazepam (Restoril) 15 mg PO HSPRN PRN PRN Reason: Insomnia Last Admin: 02/14/18 00:03 Dose: 15 mg Thiamine HCl (Thiamine) 100 mg PO DAILY [facility] Last Admin: 02/13/18 08:37 Dose: 100 mg
--- NOTE | 2018-02-14 14:41 | PDOC.CTH ---
Cardiology Progress Note - Subjective pt. seen and eval. feeling much better. The edema has improved significantly. - Objective Vital Signs Temp Pulse Resp BP Pulse Ox 02/14/18 13:36 103 H 02/14/18 11:54 97.7 F 103 H 16 103/72 95 Admit Weight 239 lb 5 oz Weight 216 lb 3.2 oz 02/13/18 02/14/18 02/15/18 06:59 06:59 06:59 Intake Total 1345 720 Output Total 3450 1550 Balance -2105 -830 - Physical Examination General/Neuro: alert & oriented x3 Neck: no JVD present Lungs: CTA Heart: other: (irreg/irreg) - Labs Result Diagrams: 02/12/18 04:49 02/14/18 03:30 Troponin/CKMB CK-MB (CK-2) 6.6 ng/mL (0-6.6) 02/10/18 03:58 Troponin I 0.018 ng/mL (< 0.028) 02/10/18 03:58 - Assessment/Plan 1. Atrial fibrillation. controlled V-rate on Dig Rate well controlled at this time with Coreg 3.125mg BID. continue anti-coagulation. 2. CMY: uncertain etiology.When the edema has resolved then plan for a cath to r /o CAD as a possible etiology (possible next Saturday). He does have a history of ETOH abuse and this may be the etiology. 3. Hyponatremia - improved 4. Severe MR: evaluate at the time of cardiac cath. If the EF improves and the heart size decreases the MR may improve. If not he may need some sort of intervention. 5. ETOH abuse. He assures me that he has stopped drinking. 6. Aute on Chronic systolic CHF: etiology not yet determined. Improved with dieresis but the lower extremities are still 2-3+. Continue diuretics. On Fluid restriction 1500ml/24hrs. * plan for cath early next week. Review of Systems - Review of Systems EENTM: reports: no symptoms reported Respiratory: reports: SOB with excertion Cardiac (ROS): reports: edema ABD/GI: reports: no symptoms reported Neurological: reports: no symptoms reported
[2018-02-14] MEDS ORDERED: Magnesium Sulfate 3 GM in Sodium Chloride 0.9% 100 ML IVPB SCH (16:00)
[2018-02-14 18:23] LABS: Hemoglobin 14.2 g/dL (14.0-18.0); Platelet Count 129 thou/uL (130-400)
[2018-02-14] MEDS: Potassium Chloride 20 MEQ TAB PO SCH (20:51)
[2018-02-14] MEDS: Magnesium Oxide 400 MG TAB PO SCH (20:55)
[2018-02-14] MEDS ORDERED: Potassium Chloride 20 MEQ TAB PO SCH (21:00)
[2018-02-14] MEDS ORDERED: Magnesium Oxide 400 MG TAB PO SCH (21:00)
--- NOTE | 2018-02-14 21:55 | PRG ---
DATE OF SERVICE: 02/14/2018 SUBJECTIVE: The patient was seen and examined, seems to be doing okay and noted with the following v ital signs. OBJECTIVE: VITAL SIGNS: Afebrile, temperature 97.6, pulse 82, respiratory rate of 18, O2 sat of 95%, blood pres sure 101/56. HEENT: Unremarkable. Moist oral mucosa. Neck was supple. No conjunctival injection or icterus. CARDIOVASCULAR SYSTEM: First and second heart sounds were heard. RESPIRATORY SYSTEM: Clear to auscultation. DIGESTIVE SYSTEM: Revealed a benign abdomen with positive bowel sounds. EXTREMITIES: No peripheral edema. SKIN: No new gross rash. LYMPHATICS: No peripheral lymphadenopathy. LABORATORY INVESTIGATION: Showed a potassium 3.9, magnesium 1.5. IMPRESSION: 1. Hypervolemia/anasarca, responding very well to diuretics. 2. Hypokalemia, which seems to have resolved. 3. Mild hyponatremia and hypomagnesemia. PLAN: We will begin to deescalate the diuretic regimen. Therefore, we will switched this patient ov er to oral Lasix; however, if patient does not respond well to oral diuretics parenteral Lasix. In any case, the patient seems to have been clinical improvement; therefore, further manageme nt to be dependent on the clinical course.
[2018-02-15 07:56] LABS: Chloride 96 mmol/L (98-107); Magnesium 1.6 mg/dL (1.6-2.6); Potassium 4.7 mmol/L (3.5-5.1); Sodium 134 mmol/L (136-145)
[2018-02-15 07:57] LABS: Calcium 8.7 mg/dL (7.8-10.44); Glucose 91 mg/dL (80-115)
[2018-02-15 07:59] LABS: Anion Gap 15 mmol/L (10-20); Carbon Dioxide 28 mmol/L (23-31)
[2018-02-15 08:01] LABS: BUN (Urea Nitrogen) 24 mg/dL (8.4-25.7); Calc. Creatinine Clearance 148 mL/min (70-130); Estimated GFR-MDRD Greater than 90
[2018-02-15] MEDS: Apixaban 5 MG TAB PO SCH ×2 (08:38→22:01)
[2018-02-15] MEDS: Magnesium Oxide 400 MG TAB PO SCH ×2 (08:38→22:01)
[2018-02-15] MEDS: Carvedilol 3.125 MG TAB PO SCH ×2 (08:38→22:01)
[2018-02-15] MEDS: Lisinopril 2.5 MG TAB PO SCH (08:39)
[2018-02-15] MEDS: Ferrous Sulfate 325 MG TAB PO SCH (08:39)
[2018-02-15] MEDS: Multivitamin W/ Minerals 1 TAB PO SCH (08:39)
[2018-02-15] MEDS: Digoxin 0.125 MG TAB PO SCH (08:39)
[2018-02-15] MEDS: Allopurinol 100 MG TAB PO SCH (08:39)
[2018-02-15] MEDS: Cyanocobalamin (Vitamin B-12) 1,000 MCG TAB PO SCH (08:39)
[2018-02-15] MEDS: Furosemide 40 MG TAB PO SCH ×2 (08:40→13:37)
[2018-02-15] MEDS: Famotidine 20 MG TAB PO SCH ×2 (08:40→21:58)
[2018-02-15] MEDS: Potassium Chloride 20 MEQ TAB PO SCH ×4 (08:40→21:58)
[2018-02-15] MEDS: Aspirin 81 mg Enteric Coated Tablet PO SCH (08:40)
--- NOTE | 2018-02-15 12:09 | PDOC.CTH ---
<AnyaaliceAmarilisnicole Arguello - Last Filed: 02/15/18 12:06> Cardiology Progress Note - Subjective Had acute dyspnea this morning which resolved on it's own after a few minutes. Still volume overloaded. - Objective Vital Signs Temp Pulse Resp BP BP Pulse Ox 02/15/18 11:41 98 F 80 18 88/55 L 02/15/18 08:00 97.6 F 85 18 107/79 02/15/18 03:15 97.8 F 97 17 110/67 95 Admit Weight 239 lb 5 oz Weight 217 lb 6.4 oz 02/14/18 02/15/18 02/16/18 06:59 06:59 06:59 Intake Total 720 1260 Output Total 1550 1500 Balance -830 -240 - Physical Examination General/Neuro: alert & oriented x3 Lungs: unlabored respirations, other: (decreased BS at bases bilaterally) Heart: other: (IRR) Abdomen: NT/ND Extremities: + edema B - Telemetry Telemetry Rhythm: AF 90s-100bpm - Labs Result Diagrams: 02/14/18 04:38 02/15/18 06:53 Troponin/CKMB CK-MB (CK-2) 6.6 ng/mL (0-6.6) 02/10/18 03:58 Troponin I 0.018 ng/mL (< 0.028) 02/10/18 03:58 - Assessment/Plan 1. Acute on chronic systolic CHF 2. Severe MR 3. Chronic AF 4. history of alcholol abuse Continue diuresis. Possible cath when euvolemic. <Arthur Cuevas - Last Filed: 02/15/18 19:59> Cardiology Progress Note - Objective Vital Signs Temp Pulse Resp BP BP Pulse Ox 02/15/18 16:00 90 18 102/71 96 02/15/18 12:33 99/51 L 02/15/18 11:41 98 F 80 18 88/55 L 02/15/18 08:00 97.6 F 85 18 107/79 Admit Weight 239 lb 5 oz Weight 217 lb 6.4 oz 02/14/18 02/15/18 02/16/18 06:59 06:59 06:59 Intake Total 720 1260 960 Output Total 1550 1500 Balance -830 -240 960 - Labs Result Diagrams: 02/14/18 04:38 10/13/18 06:53 Troponin/CKMB CK-MB (CK-2) 6.6 ng/mL (0-6.6) 02/10/18 03:58 Troponin I 0.018 ng/mL (< 0.028) 02/10/18 03:58 - Assessment/Plan Pt seen and examined. Agree with the above assessment
[2018-02-15] MEDS: Acetaminophen 325 MG TAB PO PRN (12:28)
--- NOTE | 2018-02-15 16:41 | PDOC.PN ---
- Subjective Encounter Start Date: 02/15/18 Encounter Start Time: 11:15 Subjective: pt up in bed no complains - Objective Resuscitation Status: Resuscitation Status FULL:Full Resuscitation Vital Signs & Weight: Vital Signs (12 hours) Temp Pulse Resp BP BP Pulse Ox 02/15/18 16:00 90 18 102/71 96 02/15/18 12:33 99/51 L 02/15/18 11:41 98 F 80 18 88/55 L 02/15/18 08:00 97.6 F 85 18 107/79 Weight Admit Weight 239 lb 5 oz Weight 217 lb 6.4 oz I&O: 02/14/18 02/15/18 02/16/18 06:59 06:59 06:59 Intake Total 720 1260 Output Total 1550 1500 Balance -830 -240 Result Diagrams: 02/14/18 04:38 02/15/18 06:53 Phys Exam - Physical Examination Neck: no nodes, no JVD, supple, full ROM Respiratory: no wheezing, no rales, no rhonchi, wheezing present, clear to auscultation bilateral Cardiovascular: RRR, no significant murmur, no rub, gallop, irregular Gastrointestinal: soft, non-tender, no distention, positive bowel sounds Musculoskeletal: edema present right lower ext edema and has some reddness to his left foot Dx/Plan (1) Acute systolic ACC/AHA stage C congestive heart failure Code(s): I50.21 - ACUTE SYSTOLIC (CONGESTIVE) HEART FAILURE Status: Acute (2) Acute respiratory failure with hypoxia Code(s): J96.01 - ACUTE RESPIRATORY FAILURE WITH HYPOXIA Status: Resolved (3) Hypomagnesemia Code(s): E83.42 - HYPOMAGNESEMIA Status: Acute (4) Obesity (BMI 30-39.9) Code(s): E66.9 - OBESITY, UNSPECIFIED Status: Chronic - Plan possible cath on saturday -: will check cbc if elevated wbc will start abx for his left foot wound -: will discontinue garcia in am * . Review of Systems - Review of Systems Respiratory: negative: Cough, Dry, Shortness of Breath, Hemoptysis, SOB with Excertion, Pleuritic Pain, Sputum, Wheezing Cardiovascular: negative: chest pain, palpitations, orthopnea, paroxysmal nocturnal dyspnea, edema, light headedness, other Gastrointestinal: negative: Nausea, Vomiting, Abdominal Pain, Diarrhea, Constipation, Melena, Hematochezia, Other Genitourinary: negative: Dysuria, Frequency, Incontinence, Hematuria, Retention , Other - Medications/Allergies Allergies/Adverse Reactions: Allergies Allergy/AdvReac Type Severity Reaction Status Date / Time cucumber Allergy Verified 02/10/18 02:44 melon Allergy Verified 02/10/18 02:44 naproxen AdvReac Stomach Verified 09/22/16 23:08 Ache Medications: Current Medications Acetaminophen (Tylenol) 650 mg PO Q4H PRN PRN Reason: Headache/Fever/Mild Pain (1-3) Last Admin: 02/15/18 12:28 Dose: 650 mg Hydrocodone Bitart/Acetaminophen ([place] 5/325) 1 tab PO Q4H PRN PRN Reason: Moderate Pain (4-6) Allopurinol (Zyloprim) 100 mg PO DAILY [facility] Last Admin: 02/15/18 08:39 Dose: 100 mg Apixaban (Eliquis) 5 mg PO BID [facility] Last Admin: 02/15/18 08:38 Dose: 5 mg Artificial Tears (Tears Naturale) 0 drop EA EYE PRN PRN PRN Reason: Dry Eyes Aspirin (Ecotrin) 81 mg PO DAILY [facility] Last Admin: 02/15/18 08:40 Dose: 81 mg Calcium Carbonate (Tums) 1,000 mg PO Q4H PRN PRN Reason: Heartburn or Indigestion Carvedilol (Coreg) 3.125 mg PO BID [facility] Last Admin: 02/15/18 08:38 Dose: 3.125 mg Cyanocobalamin (Vitamin B-12) 1,000 mcg PO DAILY [facility] Last Admin: 02/15/18 08:39 Dose: 1,000 mcg Digoxin (Lanoxin) 0.125 mg PO QAM [facility] Last Admin: 02/15/18 08:39 Dose: 0.125 mg Famotidine (Pepcid) 20 mg PO BID [facility] Last Admin: 02/15/18 08:40 Dose: Not Given Ferrous Sulfate (Feosol) 325 mg PO DAILY [facility] Last Admin: 02/15/18 08:39 Dose: 325 mg Furosemide (Lasix) 40 mg PO 0900,1400 [facility] Last Admin: 02/15/18 13:37 Dose: 40 mg Guaifenesin (Robitussin Sf) 200 mg PO Q4H PRN PRN Reason: Cough Hydralazine HCl (Apresoline) 10 mg SLOW IVP Q4H PRN PRN Reason: Systolic BP > 180 Iron/Minerals/Multivitamins (Theragran M) 1 tab PO DAILY [facility] Last Admin: 02/15/18 08:39 Dose: 1 tab Lisinopril (Zestril) 2.5 mg PO DAILY [facility] Last Admin: 02/15/18 08:39 Dose: 2.5 mg Loperamide HCl (Imodium) 2 mg PO PRN PRN PRN Reason: Diarrhea/Loose Stools Loratadine (Claritin) 10 mg PO DAILYPRN PRN PRN Reason: Sinus Symptoms Magnesium Hydroxide (Milk Of Magnesium) 30 ml PO DAILYPRN PRN PRN Reason: Constipation Magnesium Oxide (Magnesium Oxide) 400 mg PO BID [facility] Last Admin: 02/15/18 08:38 Dose: 400 mg Mineral Oil/White Petrolatum (Eucerin Cream) 0 gm TOP BIDPRN PRN PRN Reason: Dry Skin Miscellaneous Information (Communication Order-Pharmacy) 0 each FS ONE [facility] Stop: 02/17/18 23:59 Nitroglycerin (Nitrostat) 0.4 mg SL Q5MIN PRN PRN Reason: Chest Pain Ondansetron HCl (Zofran Odt) 4 mg PO Q6H PRN PRN Reason: Nausea/Vomiting Ondansetron HCl (Zofran) 4 mg IVP Q6H PRN PRN Reason: Nausea/Vomiting Last Admin: 02/15/18 12:27 Dose: 4 mg Phenol (Chloraseptic [place] 180 Ml Bot) 0 ml PO PRN PRN PRN Reason: Sore Throat Potassium Chloride (K-Dur) 40 meq PO TID [facility] Last Admin: 02/15/18 16:02 Dose: Not Given Senna (Senokot) 2 tab PO HSPRN PRN PRN Reason: Constipation Sodium Chloride (Flush - Normal Saline) 10 ml IVF Q12H PRN PRN Reason: Saline Flush Last Admin: 02/13/18 21:06 Dose: 10 ml Sodium Chloride (Flush - Normal Saline) 10 ml IVF PRN PRN PRN Reason: Saline Flush Last Admin: 02/13/18 05:39 Dose: 10 ml Sodium Chloride ([place] Nasal [place] 0.65%) 0 ml EA NARE QIDPRN PRN PRN Reason: Nasal Congestion Temazepam (Restoril) 15 mg PO HSPRN PRN PRN Reason: Insomnia Last Admin: 02/14/18 20:55 Dose: 15 mg Thiamine HCl (Thiamine) 100 mg PO DAILY [facility] Last Admin: 02/15/18 08:39 Dose: 100 mg
[2018-02-15] MEDS: Temazepam 15 MG CAP PO PRN (22:01)
[2018-02-16 04:57] LABS: #Basophils 0.1 thou/uL (0.0-0.2); #Eosinphils 0.2 thou/uL (0.0-0.7); #Lymphocytes 1.4 thou/uL (1.20-3.40); #Monocytes 0.9 thou/uL (0.11-0.59); #Neutrophils 4.4 thou/uL (1.40-6.50); %Basophils 1.5 % (0.0-1.0); %Eosinophils 2.6 % (0.0-10.0); %Lymphocytes 20.7 % (21.0-51.0); %Monocytes 12.2 % (0.0-10.0); Hemoglobin 15.7 g/dL (14.0-18.0); Mean Corpuscular Hemoglobin 30.6 pg (27.0-31.0); Mean Corpuscular Volume 98.4 fL (78.0-98.0); Mean Platelet Volume 8.1 fL (7.4-10.4); Platelet Count 143 thou/uL (130-400); RBC Distribution Width 13.5 % (11.5-14.5); Red Blood Cell (RBC) Count 5.13 mill/uL (4.70-6.10); White Blood Cell (WBC) Count 6.9 thou/uL (4.8-10.8)
[2018-02-16 05:00] LABS: Hemoglobin 15.6 g/dL (14.0-18.0); Platelet Count 141 thou/uL (130-400)
[2018-02-16 05:21] LABS: Anion Gap 12 mmol/L (10-20); BUN (Urea Nitrogen) 33 mg/dL (8.4-25.7); Calc. Creatinine Clearance 123 mL/min (70-130); Carbon Dioxide 32 mmol/L (23-31); Chloride 94 mmol/L (98-107); Estimated GFR-MDRD 89; Glucose 101 mg/dL (80-115); Magnesium 2.1 mg/dL (1.6-2.6); Potassium 5.7 mmol/L (3.5-5.1); Sodium 132 mmol/L (136-145)
--- NOTE | 2018-02-16 06:58 | PRG ---
DATE OF SERVICE: 02/15/2018 SUBJECTIVE: The patient is seen complaining of nausea. Otherwise, the patient remains hemodynamical ly stable. OBJECTIVE: NECK: Unremarkable. CARDIOVASCULAR: First and second heart sounds were heard. RESPIRATORY: Clear to auscultation. DIGESTIVE: Revealed a benign abdomen. EXTREMITIES: She still shows some peripheral edema. NEUROLOGIC: Alert, oriented. No lateralizing sign. IMPRESSION: Hypervolemia in the context of biventricular heart failure. PLAN: 1. We will continue with current diuretic regimen; however, if it becomes obvious that the patient r esponded to oral diuretics we will deescalate the patient back to parenteral diuretics. 2. Further management to be dependent on the clinical course.
[2018-02-16] MEDS: Ferrous Sulfate 325 MG TAB PO SCH (09:26)
[2018-02-16] MEDS: Carvedilol 3.125 MG TAB PO SCH ×2 (09:26→23:08)
[2018-02-16] MEDS: Famotidine 20 MG TAB PO SCH ×2 (09:27→09:28)
[2018-02-16] MEDS: Digoxin 0.125 MG TAB PO SCH (09:28)
[2018-02-16] MEDS: Multivitamin W/ Minerals 1 TAB PO SCH (09:28)
[2018-02-16] MEDS: Allopurinol 100 MG TAB PO SCH (09:29)
[2018-02-16] MEDS: Lisinopril 2.5 MG TAB PO SCH (09:29)
[2018-02-16] MEDS: Furosemide 40 MG TAB PO SCH ×2 (09:30→14:20)
[2018-02-16] MEDS: Aspirin 81 mg Enteric Coated Tablet PO SCH (09:30)
[2018-02-16] MEDS: Apixaban 5 MG TAB PO SCH (09:31)
[2018-02-16] MEDS: Cyanocobalamin (Vitamin B-12) 1,000 MCG TAB PO SCH (09:31)
[2018-02-16] MEDS: Magnesium Oxide 400 MG TAB PO SCH ×2 (09:32→23:09)
[2018-02-16] MEDS ORDERED: Enoxaparin Sodium 100 MG/ML SYRINGE SC SCH (09:45)
--- NOTE | 2018-02-16 09:49 | PDOC.CTH ---
Cardiology Progress Note - Subjective No complaints today. Doing much better overall. Down almost 25lbs. Still edematous, but breathing easier. - Objective Vital Signs Temp Pulse Resp BP Pulse Ox 02/16/18 07:55 97.1 F L 63 12 103/65 96 02/16/18 03:10 97.5 F L 100 17 100/69 99 Admit Weight 239 lb 5 oz Weight 214 lb 4.8 oz 02/15/18 02/16/18 02/17/18 06:59 06:59 06:59 Intake Total 1260 1260 Output Total 1500 750 Balance -240 510 - Physical Examination General/Neuro: alert & oriented x3 Neck: no JVD present Lungs: CTA Heart: other: (IRR) Abdomen: NT/ND Extremities: + edema B - Telemetry Telemetry Rhythm: AF - Labs Result Diagrams: 02/16/18 04:18 02/16/18 04:18 Troponin/CKMB CK-MB (CK-2) 6.6 ng/mL (0-6.6) 02/10/18 03:58 Troponin I 0.018 ng/mL (< 0.028) 02/10/18 03:58 - Assessment/Plan 1. Acute on chronic systolic CHF 2. Severe MR 3. Chronic AF 4. history of alcholol abuse Continue diuresis. Possible cath when euvolemic. Stop Eliquis and start lovenox in prep for [facility]
[2018-02-16 12:50] LABS: Anion Gap 12 mmol/L (10-20); BUN (Urea Nitrogen) 34 mg/dL (8.4-25.7); Calc. Creatinine Clearance 122 mL/min (70-130); Calcium 8.6 mg/dL (7.8-10.44); Carbon Dioxide 28 mmol/L (23-31); Chloride 96 mmol/L (98-107); Estimated GFR-MDRD 90; Glucose 173 mg/dL (80-115); Potassium 5.3 mmol/L (3.5-5.1); Sodium 131 mmol/L (136-145)
[2018-02-16] MEDS ORDERED: Sodium Chloride 0.9% 500 ML IV SCH (16:15)
[2018-02-16] MEDS: Temazepam 15 MG CAP PO PRN (23:09)
[2018-02-16] MEDS: Enoxaparin Sodium 100 MG/ML SYRINGE SC SCH (23:11)
[2018-02-17 05:43] LABS: Anion Gap 11 mmol/L (10-20); BUN (Urea Nitrogen) 34 mg/dL (8.4-25.7); Calc. Creatinine Clearance 127 mL/min (70-130); Calcium 8.7 mg/dL (7.8-10.44); Carbon Dioxide 32 mmol/L (23-31); Chloride 94 mmol/L (98-107); Estimated GFR-MDRD Greater than 90; Glucose 87 mg/dL (80-115); Magnesium 1.7 mg/dL (1.6-2.6); Potassium 5.6 mmol/L (3.5-5.1); Sodium 131 mmol/L (136-145)
--- NOTE | 2018-02-17 08:47 | PDOC.PN ---
- Subjective Encounter Start Date: 02/16/18 Encounter Start Time: 10:00 Subjective: pt up in bed no complains - Objective Resuscitation Status: Resuscitation Status FULL:Full Resuscitation Vital Signs & Weight: Vital Signs (12 hours) Temp Pulse Resp BP BP Pulse Ox 02/17/18 07:55 98.1 F 111 H 16 99/68 99 02/17/18 04:00 97.6 F 101 H 16 101/70 98 02/16/18 23:08 128/76 Weight Admit Weight 239 lb 5 oz Weight 214 lb 8 oz I&O: 02/16/18 02/17/18 02/18/18 06:59 06:59 06:59 Intake Total 1260 1620 Output Total 750 775 Balance 510 845 Result Diagrams: 02/16/18 04:18 02/17/18 05:01 Phys Exam - Physical Examination Neck: no nodes, no JVD, supple, full ROM Respiratory: no wheezing, no rales, no rhonchi, wheezing present, clear to auscultation bilateral Cardiovascular: RRR, no significant murmur, no rub, gallop, irregular Gastrointestinal: soft, non-tender, no distention, positive bowel sounds Dx/Plan (1) Acute systolic ACC/AHA stage C congestive heart failure Code(s): I50.21 - ACUTE SYSTOLIC (CONGESTIVE) HEART FAILURE Status: Acute (2) Acute respiratory failure with hypoxia Code(s): J96.01 - ACUTE RESPIRATORY FAILURE WITH HYPOXIA Status: Resolved (3) Hypomagnesemia Code(s): E83.42 - HYPOMAGNESEMIA Status: Acute (4) Obesity (BMI 30-39.9) Code(s): E66.9 - OBESITY, UNSPECIFIED Status: Chronic - Plan pt to undergo cardiac cath in am -: pt's K level was high will hold his tid K -: Pt's bp low and miminal output per nurse, will hold lasix for now * . Review of Systems - Review of Systems Respiratory: negative: Cough, Dry, Shortness of Breath, Hemoptysis, SOB with Excertion, Pleuritic Pain, Sputum, Wheezing Cardiovascular: negative: chest pain, palpitations, orthopnea, paroxysmal nocturnal dyspnea, edema, light headedness, other Gastrointestinal: negative: Nausea, Vomiting, Abdominal Pain, Diarrhea, Constipation, Melena, Hematochezia, Other Genitourinary: negative: Dysuria, Frequency, Incontinence, Hematuria, Retention , Other - Medications/Allergies Allergies/Adverse Reactions: Allergies Allergy/AdvReac Type Severity Reaction Status Date / Time cucumber Allergy Verified 02/10/18 02:44 melon Allergy Verified 02/10/18 02:44 naproxen AdvReac Stomach Verified 09/22/16 23:08 Ache Medications: Current Medications Acetaminophen (Tylenol) 650 mg PO Q4H PRN PRN Reason: Headache/Fever/Mild Pain (1-3) Last Admin: 02/15/18 12:28 Dose: 650 mg Hydrocodone Bitart/Acetaminophen ([place] 5/325) 1 tab PO Q4H PRN PRN Reason: Moderate Pain (4-6) Allopurinol (Zyloprim) 100 mg PO DAILY [facility] Last Admin: 02/16/18 09:29 Dose: 100 mg Artificial Tears (Tears Naturale) 0 drop EA EYE PRN PRN PRN Reason: Dry Eyes Aspirin (Ecotrin) 81 mg PO DAILY [facility] Last Admin: 02/16/18 09:30 Dose: 81 mg Calcium Carbonate (Tums) 1,000 mg PO Q4H PRN PRN Reason: Heartburn or Indigestion Carvedilol (Coreg) 3.125 mg PO BID [facility] Last Admin: 02/16/18 23:08 Dose: 3.125 mg Cyanocobalamin (Vitamin B-12) 1,000 mcg PO DAILY [facility] Last Admin: 02/16/18 09:31 Dose: 1,000 mcg Digoxin (Lanoxin) 0.125 mg PO QAM [facility] Last Admin: 02/16/18 09:28 Dose: 0.125 mg Enoxaparin Sodium (Lovenox) 100 mg SC 0900,2100 [facility] Last Admin: 02/16/18 23:11 Dose: 100 mg Famotidine (Pepcid) 20 mg PO BID [facility] Last Admin: 02/16/18 09:28 Dose: 20 mg Ferrous Sulfate (Feosol) 325 mg PO DAILY [facility] Last Admin: 02/16/18 09:26 Dose: 325 mg Furosemide (Lasix) 40 mg PO 0900,1400 [facility] Last Admin: 02/16/18 14:20 Dose: 40 mg Guaifenesin (Robitussin Sf) 200 mg PO Q4H PRN PRN Reason: Cough Hydralazine HCl (Apresoline) 10 mg SLOW IVP Q4H PRN PRN Reason: Systolic BP > 180 Iron/Minerals/Multivitamins (Theragran M) 1 tab PO DAILY [facility] Last Admin: 02/16/18 09:28 Dose: 1 tab Loperamide HCl (Imodium) 2 mg PO PRN PRN PRN Reason: Diarrhea/Loose Stools Last Admin: 02/15/18 22:04 Dose: 2 mg Loratadine (Claritin) 10 mg PO DAILYPRN PRN PRN Reason: Sinus Symptoms Magnesium Hydroxide (Milk Of Magnesium) 30 ml PO DAILYPRN PRN PRN Reason: Constipation Magnesium Oxide (Magnesium Oxide) 400 mg PO BID [facility] Last Admin: 02/16/18 23:09 Dose: 400 mg Mineral Oil/White Petrolatum (Eucerin Cream) 0 gm TOP BIDPRN PRN PRN Reason: Dry Skin Miscellaneous Information (Communication Order-Pharmacy) 0 each FS ONE [facility] Stop: 02/17/18 23:59 Nitroglycerin (Nitrostat) 0.4 mg SL Q5MIN PRN PRN Reason: Chest Pain Ondansetron HCl (Zofran Odt) 4 mg PO Q6H PRN PRN Reason: Nausea/Vomiting Ondansetron HCl (Zofran) 4 mg IVP Q6H PRN PRN Reason: Nausea/Vomiting Last Admin: 02/15/18 12:27 Dose: 4 mg Phenol (Chloraseptic [place] 180 Ml Bot) 0 ml PO PRN PRN PRN Reason: Sore Throat Senna (Senokot) 2 tab PO HSPRN PRN PRN Reason: Constipation Sodium Chloride (Flush - Normal Saline) 10 ml IVF Q12H PRN PRN Reason: Saline Flush Last Admin: 02/16/18 23:10 Dose: 10 ml Sodium Chloride (Flush - Normal Saline) 10 ml IVF PRN PRN PRN Reason: Saline Flush Last Admin: 02/13/18 05:39 Dose: 10 ml Sodium Chloride ([place] Nasal [place] 0.65%) 0 ml EA NARE QIDPRN PRN PRN Reason: Nasal Congestion Temazepam (Restoril) 15 mg PO HSPRN PRN PRN Reason: Insomnia Last Admin: 02/16/18 23:09 Dose: 15 mg Thiamine HCl (Thiamine) 100 mg PO DAILY [facility] Last Admin: 02/16/18 09:30 Dose: 100 mg
[2018-02-17] MEDS: Ferrous Sulfate 325 MG TAB PO SCH (09:08)
[2018-02-17] MEDS: Cyanocobalamin (Vitamin B-12) 1,000 MCG TAB PO SCH (09:09)
[2018-02-17] MEDS: Digoxin 0.125 MG TAB PO SCH (09:09)
[2018-02-17] MEDS: Aspirin 81 mg Enteric Coated Tablet PO SCH (09:09)
[2018-02-17] MEDS: Allopurinol 100 MG TAB PO SCH (09:09)
[2018-02-17] MEDS: Magnesium Oxide 400 MG TAB PO SCH ×2 (09:10→21:29)
[2018-02-17] MEDS: Multivitamin W/ Minerals 1 TAB PO SCH (09:10)
[2018-02-17] MEDS: Famotidine 20 MG TAB PO SCH ×3 (09:11→21:31)
[2018-02-17 09:52] LABS: Anion Gap 9 mmol/L (10-20); BUN (Urea Nitrogen) 33 mg/dL (8.4-25.7); Calc. Creatinine Clearance 129 mL/min (70-130); Calcium 8.9 mg/dL (7.8-10.44); Carbon Dioxide 34 mmol/L (23-31); Chloride 94 mmol/L (98-107); Estimated GFR-MDRD Greater than 90; Glucose 82 mg/dL (80-115); Potassium 4.9 mmol/L (3.5-5.1); Sodium 132 mmol/L (136-145)
[2018-02-17 11:24] LABS: Digoxin 0.67 ng/mL (0.8-2.0)
[2018-02-17] MEDS ORDERED: Carvedilol 3.125 MG TAB PO SCH (11:44)
[2018-02-17] MEDS ORDERED: DOBUTamine 500 mg/250 ml 250 ML IVPB SCH (11:45)
--- NOTE | 2018-02-17 11:48 | PDOC.CTH ---
Cardiology Progress Note - Subjective pt. seen and eval. by me today. he says that he had a rough day yesterday. The BP was decreased and the K elevated. He was give IV fluid and the K stopped. he feels better today but is unable to lie flat comfortably. the K tjhis AM was still elevated. 5.7 - Objective Vital Signs Temp Pulse Resp BP Pulse Ox 02/17/18 07:55 98.1 F 111 H 16 99/68 99 02/17/18 04:00 97.6 F 101 H 16 101/70 98 Admit Weight 239 lb 5 oz Weight 214 lb 8 oz 02/16/18 02/17/18 02/18/18 06:59 06:59 06:59 Intake Total 1260 1620 Output Total 750 775 Balance 510 845 - Physical Examination General/Neuro: alert & oriented x3 Neck: no JVD present Lungs: CTA Heart: other: (irreg.) Abdomen: soft Extremities: + edema B - Telemetry Telemetry Rhythm: afib. rate controlled. - Labs Result Diagrams: 02/16/18 04:18 02/17/18 09:07 Troponin/CKMB CK-MB (CK-2) 6.6 ng/mL (0-6.6) 02/10/18 03:58 Troponin I 0.018 ng/mL (< 0.028) 02/10/18 03:58 - Assessment/Plan 1. Acute on chronic systolic CHF. Still vol. overloaded. Hypotensive yesterday. Add dobutamine . And dopamine if nec. 2. Severe MR. He may eventualy need repair if the EF improves. 3. Chronic AF. Rate controlled. This may increase ater starting dobutamine and holding the Coreg. 4. history of alcholol abuse Continue diuresis. Possible cath when euvolemic.Hopefully the initrpoic suport with dobutamine will help with further diuresis. Review of Systems - Review of Systems Constitutional: reports: weakness EENTM: reports: no symptoms reported Respiratory: reports: orthopnea Cardiac (ROS): reports: edema ABD/GI: reports: no symptoms reported : reports: no symptoms reported Musculoskeletal: reports: no symptoms reported Neurological: reports: no symptoms reported
[2018-02-17] MEDS: Carvedilol 3.125 MG TAB PO SCH (12:20)
[2018-02-17] MEDS: Enoxaparin Sodium 100 MG/ML SYRINGE SC SCH ×2 (13:10→21:28)
[2018-02-17] MEDS ORDERED: Furosemide 40 MG TAB PO SCH (14:00)
--- NOTE | 2018-02-17 16:58 | PDOC.PN ---
- Subjective Encounter Start Date: 02/17/18 Encounter Start Time: 10:30 Subjective: pt up in bed feels better today - Objective Resuscitation Status: Resuscitation Status FULL:Full Resuscitation Vital Signs & Weight: Vital Signs (12 hours) Temp Pulse Resp BP BP Pulse Ox 02/17/18 16:12 96.6 F L 70 16 90/72 99 02/17/18 13:18 97.9 F 76 16 108/75 96 02/17/18 07:57 99 02/17/18 07:55 98.1 F 111 H 16 99/68 99 Weight Admit Weight 239 lb 5 oz Weight 214 lb 8 oz I&O: 02/16/18 02/17/18 02/18/18 06:59 06:59 06:59 Intake Total 1260 1620 Output Total 750 775 Balance 510 845 Result Diagrams: 02/16/18 04:18 02/17/18 09:07 Phys Exam - Physical Examination Neck: no nodes, no JVD, supple, full ROM Respiratory: no wheezing, no rales, no rhonchi, wheezing present, clear to auscultation bilateral Cardiovascular: RRR, no significant murmur, no rub, gallop, irregular Gastrointestinal: soft, non-tender, no distention, positive bowel sounds Musculoskeletal: edema present Neurological: non-focal, normal sensation, moves all 4 limbs Dx/Plan (1) Acute systolic ACC/AHA stage C congestive heart failure Code(s): I50.21 - ACUTE SYSTOLIC (CONGESTIVE) HEART FAILURE Status: Acute (2) Acute respiratory failure with hypoxia Code(s): J96.01 - ACUTE RESPIRATORY FAILURE WITH HYPOXIA Status: Resolved (3) Hypomagnesemia Code(s): E83.42 - HYPOMAGNESEMIA Status: Acute (4) Obesity (BMI 30-39.9) Code(s): E66.9 - OBESITY, UNSPECIFIED Status: Chronic (5) Severe mitral regurgitation Code(s): I34.0 - NONRHEUMATIC MITRAL (VALVE) INSUFFICIENCY Status: Acute - Plan pt's K is better on repeat labs -: hard to diurese pt due to low bp, pt on dobutamine -: spoke with pt he wantes to be a full code -: suppose to get a cath but pt could not lie flat * . Review of Systems - Review of Systems ENT: negative: Ear Pain, Ear Discharge, Nose Pain, Nose Discharge, Nose Congestion, Mouth Pain, Mouth Swelling, Throat Pain, Throat Swelling, Other Respiratory: negative: Cough, Dry, Shortness of Breath, Hemoptysis, SOB with Excertion, Pleuritic Pain, Sputum, Wheezing Cardiovascular: negative: chest pain, palpitations, orthopnea, paroxysmal nocturnal dyspnea, edema, light headedness, other Gastrointestinal: negative: Nausea, Vomiting, Abdominal Pain, Diarrhea, Constipation, Melena, Hematochezia, Other Genitourinary: negative: Dysuria, Frequency, Incontinence, Hematuria, Retention , Other - Medications/Allergies Allergies/Adverse Reactions: Allergies Allergy/AdvReac Type Severity Reaction Status Date / Time cucumber Allergy Verified 02/10/18 02:44 melon Allergy Verified 02/10/18 02:44 naproxen AdvReac Stomach Verified 09/22/16 23:08 Ache Medications: Current Medications Acetaminophen (Tylenol) 650 mg PO Q4H PRN PRN Reason: Headache/Fever/Mild Pain (1-3) Last Admin: 02/15/18 12:28 Dose: 650 mg Hydrocodone Bitart/Acetaminophen ([place] 5/325) 1 tab PO Q4H PRN PRN Reason: Moderate Pain (4-6) Allopurinol (Zyloprim) 100 mg PO DAILY [facility] Last Admin: 02/17/18 09:09 Dose: 100 mg Artificial Tears (Tears Naturale) 0 drop EA EYE PRN PRN PRN Reason: Dry Eyes Aspirin (Ecotrin) 81 mg PO DAILY [facility] Last Admin: 02/17/18 09:09 Dose: 81 mg Calcium Carbonate (Tums) 1,000 mg PO Q4H PRN PRN Reason: Heartburn or Indigestion Cyanocobalamin (Vitamin B-12) 1,000 mcg PO DAILY [facility] Last Admin: 02/17/18 09:09 Dose: 1,000 mcg Digoxin (Lanoxin) 0.125 mg PO QAM [facility] Last Admin: 02/17/18 09:09 Dose: 0.125 mg Enoxaparin Sodium (Lovenox) 100 mg SC 0900,2100 [facility] Last Admin: 02/17/18 13:10 Dose: 100 mg Famotidine (Pepcid) 20 mg PO BID [facility] Last Admin: 02/17/18 09:11 Dose: Not Given Ferrous Sulfate (Feosol) 325 mg PO DAILY [facility] Last Admin: 02/17/18 09:08 Dose: Not Given Furosemide (Lasix) 40 mg PO 0900,1400 [facility] Guaifenesin (Robitussin Sf) 200 mg PO Q4H PRN PRN Reason: Cough Hydralazine HCl (Apresoline) 10 mg SLOW IVP Q4H PRN PRN Reason: Systolic BP > 180 Dobutamine HCl 1,000 mg/ (Dextrose/Water) 250 mls @ 3.64 mls/hr IVPB INF [facility] Last Admin: 02/17/18 13:09 Dose: 250 mls Iron/Minerals/Multivitamins (Theragran M) 1 tab PO DAILY [facility] Last Admin: 02/17/18 09:10 Dose: 1 tab Loperamide HCl (Imodium) 2 mg PO PRN PRN PRN Reason: Diarrhea/Loose Stools Last Admin: 02/15/18 22:04 Dose: 2 mg Loratadine (Claritin) 10 mg PO DAILYPRN PRN PRN Reason: Sinus Symptoms Magnesium Hydroxide (Milk Of Magnesium) 30 ml PO DAILYPRN PRN PRN Reason: Constipation Magnesium Oxide (Magnesium Oxide) 400 mg PO BID [facility] Last Admin: 02/17/18 09:10 Dose: 400 mg Mineral Oil/White Petrolatum (Eucerin Cream) 0 gm TOP BIDPRN PRN PRN Reason: Dry Skin Miscellaneous Information (Communication Order-Pharmacy) 0 each FS ONE [facility] Stop: 02/17/18 23:59 Nitroglycerin (Nitrostat) 0.4 mg SL Q5MIN PRN PRN Reason: Chest Pain Ondansetron HCl (Zofran Odt) 4 mg PO Q6H PRN PRN Reason: Nausea/Vomiting Ondansetron HCl (Zofran) 4 mg IVP Q6H PRN PRN Reason: Nausea/Vomiting Last Admin: 02/15/18 12:27 Dose: 4 mg Phenol (Chloraseptic [place] 180 Ml Bot) 0 ml PO PRN PRN PRN Reason: Sore Throat Senna (Senokot) 2 tab PO HSPRN PRN PRN Reason: Constipation Sodium Chloride (Flush - Normal Saline) 10 ml IVF Q12H PRN PRN Reason: Saline Flush Last Admin: 02/16/18 23:10 Dose: 10 ml Sodium Chloride (Flush - Normal Saline) 10 ml IVF PRN PRN PRN Reason: Saline Flush Last Admin: 02/13/18 05:39 Dose: 10 ml Sodium Chloride ([place] Nasal [place] 0.65%) 0 ml EA NARE QIDPRN PRN PRN Reason: Nasal Congestion Temazepam (Restoril) 15 mg PO HSPRN PRN PRN Reason: Insomnia Last Admin: 02/16/18 23:09 Dose: 15 mg Thiamine HCl (Thiamine) 100 mg PO DAILY [facility] Last Admin: 02/17/18 09:10 Dose: 100 mg
[2018-02-17] MEDS ORDERED: Furosemide 40 MG/4 ML VIAL SLOW IVP SCH (20:00)
--- NOTE | 2018-02-17 21:04 | PRG ---
DATE OF SERVICE: 02/17/2018 The patient was seen and examined, seems to be doing much better noted with the following vital signs . PHYSICAL EXAMINATION: VITAL SIGNS: Afebrile at 96.6, pulse 70, respirations 16, O2 sat 99% with blood pressure 90/72. HEENT: Unremarkable. CARDIOVASCULAR: First and second heart sounds were heard. RESPIRATORY: Clear to auscultation. ABDOMEN: Digestive system revealed an obese abdomen. EXTREMITIES: Showed presence of peripheral edema. IMPRESSION: Hypervolemia. PLAN: 1. The patient to continue with oral diuretic regimen. 2. Continue to monitor the patient's electrolytes very closely.
[2018-02-18 04:48] LABS: Hemoglobin 14.2 g/dL (14.0-18.0); Platelet Count 135 thou/uL (130-400)
[2018-02-18 05:09] LABS: Anion Gap 9 mmol/L (10-20); BUN (Urea Nitrogen) 28 mg/dL (8.4-25.7); Calc. Creatinine Clearance 133 mL/min (70-130); Calcium 8.8 mg/dL (7.8-10.44); Carbon Dioxide 33 mmol/L (23-31); Chloride 93 mmol/L (98-107); Estimated GFR-MDRD Greater than 90; Glucose 88 mg/dL (80-115); Magnesium 1.7 mg/dL (1.6-2.6); Potassium 4.3 mmol/L (3.5-5.1); Sodium 131 mmol/L (136-145)
[2018-02-18] MEDS: Furosemide 40 MG/4 ML VIAL SLOW IVP SCH ×2 (05:29→13:30)
[2018-02-18] MEDS: Digoxin 0.125 MG TAB PO SCH (08:23)
[2018-02-18] MEDS: Famotidine 20 MG TAB PO SCH ×2 (08:24→21:23)
[2018-02-18] MEDS: Cyanocobalamin (Vitamin B-12) 1,000 MCG TAB PO SCH (08:24)
[2018-02-18] MEDS: Ferrous Sulfate 325 MG TAB PO SCH (08:24)
[2018-02-18] MEDS: Magnesium Oxide 400 MG TAB PO SCH ×2 (08:26→21:23)
[2018-02-18] MEDS: Enoxaparin Sodium 100 MG/ML SYRINGE SC SCH ×2 (08:26→21:23)
[2018-02-18] MEDS: Allopurinol 100 MG TAB PO SCH (08:26)
[2018-02-18] MEDS: Multivitamin W/ Minerals 1 TAB PO SCH (08:26)
[2018-02-18] MEDS: Aspirin 81 mg Enteric Coated Tablet PO SCH (08:26)
--- NOTE | 2018-02-18 15:31 | PDOC.CTH ---
Cardiology Progress Note - Subjective The pt seen and examined. No overnight events. No cardiac complaints. - Objective Vital Signs Temp Pulse Pulse Pulse Resp BP BP 02/18/18 15:10 97.5 F L 97 16 02/18/18 12:00 97.6 F 99 15 02/18/18 11:05 117 H 90 110/72 105/67 02/18/18 07:20 97.8 F 86 17 02/18/18 04:00 97.9 F 84 16 BP BP Pulse Ox 02/18/18 15:10 120/83 98 02/18/18 12:00 103/73 98 02/18/18 11:05 02/18/18 07:20 107/85 95 02/18/18 04:00 103/67 96 Admit Weight 239 lb 5 oz Weight 218 lb 02/17/18 02/18/18 02/19/18 06:59 06:59 06:59 Intake Total 1620 940 Output Total 775 1475 Balance 845 -535 - Physical Examination General/Neuro: alert & oriented x3 Heart: other: (irregular) Abdomen: soft Extremities: other: (3+ pitting BLE edema) - Telemetry Telemetry Rhythm: Afib 90s - Labs Result Diagrams: 02/18/18 04:33 02/18/18 04:33 Troponin/CKMB CK-MB (CK-2) 6.6 ng/mL (0-6.6) 02/10/18 03:58 Troponin I 0.018 ng/mL (< 0.028) 02/10/18 03:58 - Assessment/Plan 1. [place] on Chronic systolic CHF - etiology not yet determined. Improving with dieresis and Dobutamine 5mg/kg/min. On Fluid restriction 1500ml/24hrs. 2. CMY - uncertain etiology. Possible LHC to r/o CAD as a possible etiology when the edema resolve. Long Hx of ETOH abuse. 3, Afib - Rate well controlled with Digoxin 0.125mg PO qd. On Lovenox BID. 4. Hyponatremia - improved 5. Severe MR - evaluate at the time of cardiac cath. If the EF improves and the heart size decreases the MR may improve. If not he may need some sort of intervention. 6. ETOH abuse - ETOH cessation education given to the pt. MAR reviewed. * plan for cath early next week. Review of Systems - Review of Systems Constitutional: reports: no symptoms reported EENTM: reports: no symptoms reported Respiratory: reports: no symptoms reported Cardiac (ROS): reports: no symptoms reported ABD/GI: reports: no symptoms reported : reports: no symptoms reported
--- NOTE | 2018-02-18 16:46 | PDOC.PN ---
- Subjective Encounter Start Date: 02/18/18 Encounter Start Time: 11:15 Subjective: pt up in bed states he feels much better - Objective Resuscitation Status: Resuscitation Status FULL:Full Resuscitation Vital Signs & Weight: Vital Signs (12 hours) Temp Pulse Pulse Pulse Resp BP BP 02/18/18 15:10 97.5 F L 97 16 02/18/18 12:00 97.6 F 99 15 02/18/18 11:05 117 H 90 110/72 105/67 02/18/18 07:20 97.8 F 86 17 BP BP Pulse Ox 02/18/18 15:10 120/83 98 02/18/18 12:00 103/73 98 02/18/18 11:05 02/18/18 07:20 107/85 95 Weight Admit Weight 239 lb 5 oz Weight 218 lb I&O: 02/17/18 02/18/18 02/19/18 06:59 06:59 06:59 Intake Total 1620 940 Output Total 775 1475 Balance 845 -535 Result Diagrams: 02/18/18 04:33 02/18/18 04:33 Phys Exam - Physical Examination Neck: no nodes, no JVD, supple, full ROM Respiratory: no wheezing, no rales, no rhonchi, wheezing present, clear to auscultation bilateral Cardiovascular: RRR, no significant murmur, no rub, gallop, irregular Gastrointestinal: soft, non-tender, no distention, positive bowel sounds Dx/Plan (1) Acute systolic ACC/AHA stage C congestive heart failure Code(s): I50.21 - ACUTE SYSTOLIC (CONGESTIVE) HEART FAILURE Status: Acute (2) Acute respiratory failure with hypoxia Code(s): J96.01 - ACUTE RESPIRATORY FAILURE WITH HYPOXIA Status: Resolved (3) Hypomagnesemia Code(s): E83.42 - HYPOMAGNESEMIA Status: Acute (4) Obesity (BMI 30-39.9) Code(s): E66.9 - OBESITY, UNSPECIFIED Status: Chronic (5) Severe mitral regurgitation Code(s): I34.0 - NONRHEUMATIC MITRAL (VALVE) INSUFFICIENCY Status: Acute - Plan pt on dobutamine -: continue lasix -: continue to monitor electrolytes * . Review of Systems - Review of Systems Respiratory: negative: Cough, Dry, Shortness of Breath, Hemoptysis, SOB with Excertion, Pleuritic Pain, Sputum, Wheezing Cardiovascular: negative: chest pain, palpitations, orthopnea, paroxysmal nocturnal dyspnea, edema, light headedness, other Gastrointestinal: negative: Nausea, Vomiting, Abdominal Pain, Diarrhea, Constipation, Melena, Hematochezia, Other Genitourinary: negative: Dysuria, Frequency, Incontinence, Hematuria, Retention , Other - Medications/Allergies Allergies/Adverse Reactions: Allergies Allergy/AdvReac Type Severity Reaction Status Date / Time cucumber Allergy Verified 02/10/18 02:44 melon Allergy Verified 02/10/18 02:44 naproxen AdvReac Stomach Verified 09/22/16 23:08 Ache Medications: Current Medications Acetaminophen (Tylenol) 650 mg PO Q4H PRN PRN Reason: Headache/Fever/Mild Pain (1-3) Last Admin: 02/15/18 12:28 Dose: 650 mg Hydrocodone Bitart/Acetaminophen ([place] 5/325) 1 tab PO Q4H PRN PRN Reason: Moderate Pain (4-6) Allopurinol (Zyloprim) 100 mg PO DAILY [facility] Last Admin: 02/18/18 08:26 Dose: 100 mg Artificial Tears (Tears Naturale) 0 drop EA EYE PRN PRN PRN Reason: Dry Eyes Aspirin (Ecotrin) 81 mg PO DAILY [facility] Last Admin: 02/18/18 08:26 Dose: 81 mg Calcium Carbonate (Tums) 1,000 mg PO Q4H PRN PRN Reason: Heartburn or Indigestion Cyanocobalamin (Vitamin B-12) 1,000 mcg PO DAILY [facility] Last Admin: 02/18/18 08:24 Dose: 1,000 mcg Digoxin (Lanoxin) 0.125 mg PO QAM [facility] Last Admin: 02/18/18 08:23 Dose: 0.125 mg Enoxaparin Sodium (Lovenox) 100 mg SC 0900,2100 [facility] Last Admin: 02/18/18 08:26 Dose: 100 mg Famotidine (Pepcid) 20 mg PO BID [facility] Last Admin: 02/18/18 08:24 Dose: Not Given Ferrous Sulfate (Feosol) 325 mg PO DAILY [facility] Last Admin: 02/18/18 08:24 Dose: 325 mg Furosemide (Lasix) 40 mg PO 0900,1400 [facility] Last Admin: 02/17/18 20:51 Dose: Not Given Furosemide (Lasix) 40 mg SLOW IVP 0600,1400 [facility] Last Admin: 02/18/18 13:30 Dose: 40 mg Guaifenesin (Robitussin Sf) 200 mg PO Q4H PRN PRN Reason: Cough Hydralazine HCl (Apresoline) 10 mg SLOW IVP Q4H PRN PRN Reason: Systolic BP > 180 Dobutamine HCl 1,000 mg/ (Dextrose/Water) 250 mls @ 7.29 mls/hr IVPB INF [facility] Iron/Minerals/Multivitamins (Theragran M) 1 tab PO DAILY [facility] Last Admin: 02/18/18 08:26 Dose: 1 tab Loperamide HCl (Imodium) 2 mg PO PRN PRN PRN Reason: Diarrhea/Loose Stools Last Admin: 02/15/18 22:04 Dose: 2 mg Loratadine (Claritin) 10 mg PO DAILYPRN PRN PRN Reason: Sinus Symptoms Magnesium Hydroxide (Milk Of Magnesium) 30 ml PO DAILYPRN PRN PRN Reason: Constipation Magnesium Oxide (Magnesium Oxide) 400 mg PO BID [facility] Last Admin: 02/18/18 08:26 Dose: 400 mg Mineral Oil/White Petrolatum (Eucerin Cream) 0 gm TOP BIDPRN PRN PRN Reason: Dry Skin Nitroglycerin (Nitrostat) 0.4 mg SL Q5MIN PRN PRN Reason: Chest Pain Ondansetron HCl (Zofran Odt) 4 mg PO Q6H PRN PRN Reason: Nausea/Vomiting Ondansetron HCl (Zofran) 4 mg IVP Q6H PRN PRN Reason: Nausea/Vomiting Last Admin: 02/15/18 12:27 Dose: 4 mg Phenol (Chloraseptic [place] 180 Ml Bot) 0 ml PO PRN PRN PRN Reason: Sore Throat Senna (Senokot) 2 tab PO HSPRN PRN PRN Reason: Constipation Sodium Chloride (Flush - Normal Saline) 10 ml IVF Q12H PRN PRN Reason: Saline Flush Last Admin: 02/16/18 23:10 Dose: 10 ml Sodium Chloride (Flush - Normal Saline) 10 ml IVF PRN PRN PRN Reason: Saline Flush Last Admin: 02/13/18 05:39 Dose: 10 ml Sodium Chloride ([place] Nasal [place] 0.65%) 0 ml EA NARE QIDPRN PRN PRN Reason: Nasal Congestion Temazepam (Restoril) 15 mg PO HSPRN PRN PRN Reason: Insomnia Last Admin: 02/16/18 23:09 Dose: 15 mg Thiamine HCl (Thiamine) 100 mg PO DAILY [facility] Last Admin: 02/18/18 08:26 Dose: 100 mg
[2018-02-18] MEDS: Acetaminophen 325 MG TAB PO PRN (17:34)
--- NOTE | 2018-02-18 22:15 | PRG ---
DATE OF SERVICE: 02/18/2018 SUBJECTIVE: Seems to be doing much better, especially now that he is on dobutamine drip, noted with the following vital signs. PHYSICAL EXAMINATION: VITAL SIGNS: Afebrile with temperature 97.6, pulse 99, respiratory rate 16, O2 sat of 98% with a blo od pressure of 105/67. HEENT: Unremarkable. CARDIOVASCULAR: First and second heart sounds were heard. RESPIRATORY SYSTEM: Clear to auscultation. DIGESTIVE SYSTEM: Revealed a benign abdomen. EXTREMITIES: Do show some peripheral edema. SKIN: No new gross rash. LYMPHATICS: No peripheral lymphadenopathy. IMPRESSION: 1. Hypervolemia, on diuretics. 2. Cardiac decompensation, query cause. 3. Hyperkalemia, which has resolved since stopping the lisinopril and potassium supplementation. PLAN: 1. The patient seems to be both on p.o. Lasix and IV Lasix. We will go ahead and discontinue the p. o. Lasix and continue with IV for now. 2. Low salt diet. 3. Renally dose all medications. 4. Further management to be dependent on the clinical course as well as further recommendations from the waiter/waitress take out and the patient seems cardiac catheterization.
[2018-02-18] MEDS: Temazepam 15 MG CAP PO PRN (22:58)
[2018-02-19 05:28] LABS: Anion Gap 13 mmol/L (10-20); BUN (Urea Nitrogen) 18 mg/dL (8.4-25.7); Calc. Creatinine Clearance 162 mL/min (70-130); Calcium 8.9 mg/dL (7.8-10.44); Carbon Dioxide 31 mmol/L (23-31); Chloride 95 mmol/L (98-107); Estimated GFR-MDRD Greater than 90; Glucose 75 mg/dL (80-115); Magnesium 1.5 mg/dL (1.6-2.6); Potassium 3.7 mmol/L (3.5-5.1); Sodium 135 mmol/L (136-145)
[2018-02-19] MEDS: Furosemide 40 MG/4 ML VIAL SLOW IVP SCH ×2 (05:43→13:15)
[2018-02-19] MEDS: Digoxin 0.125 MG TAB PO SCH (08:41)
[2018-02-19] MEDS: Allopurinol 100 MG TAB PO SCH (08:41)
[2018-02-19] MEDS: Aspirin 81 mg Enteric Coated Tablet PO SCH (08:42)
[2018-02-19] MEDS: Multivitamin W/ Minerals 1 TAB PO SCH (08:42)
[2018-02-19] MEDS: Enoxaparin Sodium 100 MG/ML SYRINGE SC SCH ×2 (08:42→21:05)
[2018-02-19] MEDS: Famotidine 20 MG TAB PO SCH ×2 (08:42→21:09)
[2018-02-19] MEDS: Magnesium Oxide 400 MG TAB PO SCH ×2 (08:42→21:05)
[2018-02-19] MEDS: Ferrous Sulfate 325 MG TAB PO SCH (08:42)
[2018-02-19] MEDS: Cyanocobalamin (Vitamin B-12) 1,000 MCG TAB PO SCH (08:42)
--- NOTE | 2018-02-19 11:27 | PDOC.PN ---
- Subjective Encounter Start Date: 02/19/18 Encounter Start Time: 11:00 Subjective: pt up with PT - Objective Resuscitation Status: Resuscitation Status FULL:Full Resuscitation Vital Signs & Weight: Vital Signs (12 hours) Temp Pulse Resp BP Pulse Ox 02/19/18 07:15 97.9 F 92 16 106/90 99 02/19/18 03:10 97.4 F L 99 19 113/88 96 Weight Admit Weight 239 lb 5 oz Weight 214 lb 1.6 oz I&O: 02/18/18 02/19/18 02/20/18 06:59 06:59 06:59 Intake Total 940 1148 Output Total 1475 4200 Balance -748 -2601 Result Diagrams: 02/18/18 04:33 02/19/18 04:46 Phys Exam - Physical Examination Neck: no nodes, no JVD, supple, full ROM Respiratory: no wheezing, no rales, no rhonchi, wheezing present, clear to auscultation bilateral Cardiovascular: RRR, no significant murmur, no rub, gallop, irregular Gastrointestinal: soft, non-tender, no distention, positive bowel sounds Dx/Plan (1) Acute systolic ACC/AHA stage C congestive heart failure Code(s): I50.21 - ACUTE SYSTOLIC (CONGESTIVE) HEART FAILURE Status: Acute (2) Acute respiratory failure with hypoxia Code(s): J96.01 - ACUTE RESPIRATORY FAILURE WITH HYPOXIA Status: Resolved (3) Hypomagnesemia Code(s): E83.42 - HYPOMAGNESEMIA Status: Acute (4) Obesity (BMI 30-39.9) Code(s): E66.9 - OBESITY, UNSPECIFIED Status: Chronic (5) Severe mitral regurgitation Code(s): I34.0 - NONRHEUMATIC MITRAL (VALVE) INSUFFICIENCY Status: Acute - Plan pt still on dobutamine drip -: cath per cardiology -: pt on iv lasix, bp is improving * . Review of Systems - Review of Systems Respiratory: negative: Cough, Dry, Shortness of Breath, Hemoptysis, SOB with Excertion, Pleuritic Pain, Sputum, Wheezing Cardiovascular: negative: chest pain, palpitations, orthopnea, paroxysmal nocturnal dyspnea, edema, light headedness, other Gastrointestinal: negative: Nausea, Vomiting, Abdominal Pain, Diarrhea, Constipation, Melena, Hematochezia, Other Genitourinary: negative: Dysuria, Frequency, Incontinence, Hematuria, Retention , Other - Medications/Allergies Allergies/Adverse Reactions: Allergies Allergy/AdvReac Type Severity Reaction Status Date / Time cucumber Allergy Verified 02/10/18 02:44 melon Allergy Verified 02/10/18 02:44 naproxen AdvReac Stomach Verified 09/22/16 23:08 Ache Medications: Current Medications Acetaminophen (Tylenol) 650 mg PO Q4H PRN PRN Reason: Headache/Fever/Mild Pain (1-3) Last Admin: 02/18/18 17:34 Dose: 650 mg Hydrocodone Bitart/Acetaminophen ([place] 5/325) 1 tab PO Q4H PRN PRN Reason: Moderate Pain (4-6) Allopurinol (Zyloprim) 100 mg PO DAILY [facility] Last Admin: 02/19/18 08:41 Dose: 100 mg Artificial Tears (Tears Naturale) 0 drop EA EYE PRN PRN PRN Reason: Dry Eyes Aspirin (Ecotrin) 81 mg PO DAILY [facility] Last Admin: 02/19/18 08:42 Dose: 81 mg Calcium Carbonate (Tums) 1,000 mg PO Q4H PRN PRN Reason: Heartburn or Indigestion Cyanocobalamin (Vitamin B-12) 1,000 mcg PO DAILY [facility] Last Admin: 02/19/18 08:42 Dose: 1,000 mcg Digoxin (Lanoxin) 0.125 mg PO QAM [facility] Last Admin: 02/19/18 08:41 Dose: 0.125 mg Enoxaparin Sodium (Lovenox) 100 mg SC 0900,2100 [facility] Last Admin: 02/19/18 08:42 Dose: 100 mg Famotidine (Pepcid) 20 mg PO BID [facility] Last Admin: 02/19/18 08:42 Dose: Not Given Ferrous Sulfate (Feosol) 325 mg PO DAILY [facility] Last Admin: 02/19/18 08:42 Dose: 325 mg Furosemide (Lasix) 40 mg SLOW IVP 0600,1400 [facility] Last Admin: 02/19/18 05:43 Dose: 40 mg Guaifenesin (Robitussin Sf) 200 mg PO Q4H PRN PRN Reason: Cough Hydralazine HCl (Apresoline) 10 mg SLOW IVP Q4H PRN PRN Reason: Systolic BP > 180 Dobutamine HCl 1,000 mg/ (Dextrose/Water) 250 mls @ 7.29 mls/hr IVPB INF [facility] Magnesium Sulfate 1 gm/ Sodium (Chloride) 102 mls @ 100 mls/hr IVPB ONE [facility] Stop: 02/19/18 14:00 Iron/Minerals/Multivitamins (Theragran M) 1 tab PO DAILY [facility] Last Admin: 02/19/18 08:42 Dose: 1 tab Loperamide HCl (Imodium) 2 mg PO PRN PRN PRN Reason: Diarrhea/Loose Stools Last Admin: 02/15/18 22:04 Dose: 2 mg Loratadine (Claritin) 10 mg PO DAILYPRN PRN PRN Reason: Sinus Symptoms Magnesium Hydroxide (Milk Of Magnesium) 30 ml PO DAILYPRN PRN PRN Reason: Constipation Magnesium Oxide (Magnesium Oxide) 400 mg PO BID [facility] Last Admin: 02/19/18 08:42 Dose: 400 mg Mineral Oil/White Petrolatum (Eucerin Cream) 0 gm TOP BIDPRN PRN PRN Reason: Dry Skin Nitroglycerin (Nitrostat) 0.4 mg SL Q5MIN PRN PRN Reason: Chest Pain Ondansetron HCl (Zofran Odt) 4 mg PO Q6H PRN PRN Reason: Nausea/Vomiting Ondansetron HCl (Zofran) 4 mg IVP Q6H PRN PRN Reason: Nausea/Vomiting Last Admin: 02/15/18 12:27 Dose: 4 mg Phenol (Chloraseptic [place] 180 Ml Bot) 0 ml PO PRN PRN PRN Reason: Sore Throat Senna (Senokot) 2 tab PO HSPRN PRN PRN Reason: Constipation Sodium Chloride (Flush - Normal Saline) 10 ml IVF Q12H PRN PRN Reason: Saline Flush Last Admin: 02/16/18 23:10 Dose: 10 ml Sodium Chloride (Flush - Normal Saline) 10 ml IVF PRN PRN PRN Reason: Saline Flush Last Admin: 02/13/18 05:39 Dose: 10 ml Sodium Chloride ([place] Nasal [place] 0.65%) 0 ml EA NARE QIDPRN PRN PRN Reason: Nasal Congestion Temazepam (Restoril) 15 mg PO HSPRN PRN PRN Reason: Insomnia Last Admin: 02/18/18 22:58 Dose: 15 mg Thiamine HCl (Thiamine) 100 mg PO DAILY [facility] Last Admin: 02/19/18 08:42 Dose: 100 mg
--- NOTE | 2018-02-19 12:09 | PRG ---
DATE OF SERVICE: 02/19/2018 The patient was seen and examined. PHYSICAL EXAMINATION: VITAL SIGNS: Afebrile with temperature 97.9, pulse 92, respiratory rate 16, O2 sat 99% with blood pr essure 106/90. HEENT: Unremarkable. CARDIOVASCULAR: First and second heart sounds were heard. RESPIRATORY SYSTEM: Clear to auscultation. DIGESTIVE SYSTEM: Revealed a benign abdomen with positive bowel sounds. EXTREMITIES: Showed 2-3+ bilateral lower extremity edema. LABORATORY: Input and output showed that the patient passed about 4.2 liters of urine. IMPRESSION: 1. Hypervolemia seems to be responding to diuretics and inotropic agents. 2. Cardiac decompensation. PLAN: 1. Will continue diuresis. 2. Monitor electrolytes accordingly and replete. 3. Further management to be dependent on the clinical course.
[2018-02-19] MEDS: Acetaminophen 325 MG TAB PO PRN (13:49)
--- NOTE | 2018-02-19 14:13 | PDOC.CTH ---
<Miley Segura - Last Filed: 02/19/18 14:11> Cardiology Progress Note - Subjective The pt seen and examined. No overnight events. No cardiac complaints. - Objective Vital Signs Temp Pulse Pulse Pulse Resp BP BP 02/19/18 11:25 97.7 F 72 16 02/19/18 10:09 127 H 94 108/74 92/66 02/19/18 07:15 97.9 F 92 16 02/19/18 03:10 97.4 F L 99 19 BP Pulse Ox 02/19/18 11:25 111/72 93 L 02/19/18 10:09 02/19/18 07:15 106/90 99 02/19/18 03:10 113/88 96 Admit Weight 239 lb 5 oz Weight 214 lb 1.6 oz 02/18/18 02/19/18 02/20/18 06:59 06:59 06:59 Intake Total 940 1148 Output Total 1475 4200 Balance -535 -3052 - Physical Examination General/Neuro: alert & oriented x3 Neck: no JVD present Lungs: other: (diminished at bases) Heart: other: (irregular) Abdomen: soft Extremities: other: (3+ pitting BLE edema) - Telemetry Telemetry Rhythm: Afib 90-110s - Labs Result Diagrams: 02/18/18 04:33 02/19/18 04:46 Troponin/CKMB CK-MB (CK-2) 6.6 ng/mL (0-6.6) 02/10/18 03:58 Troponin I 0.018 ng/mL (< 0.028) 02/10/18 03:58 - Assessment/Plan 1. Aute on Chronic systolic CHF - etiology not yet determined. Output > 4000ml yesterday. Improving with dieresis and Dobutamine 5mg/kg/min and Lasix 40mg IV BID. On Fluid restriction 1500ml/24hrs. 2. CMY - uncertain etiology. Possible LHC to r/o CAD as a possible etiology when the edema resolve. Long Hx of ETOH abuse. 3, Afib - Rate well controlled with Digoxin 0.125mg PO qd. On Lovenox BID. 4. Hyponatremia - improved 5. Severe MR - evaluate at the time of cardiac cath. If the EF improves and the heart size decreases the MR may improve. If not he may need some sort of intervention. 6. ETOH abuse - ETOH cessation education given to the pt. MAR reviewed. * plan for cath when the pt can lay on spine position. Review of Systems - Review of Systems Constitutional: reports: no symptoms reported EENTM: reports: no symptoms reported Respiratory: reports: no symptoms reported Cardiac (ROS): reports: no symptoms reported ABD/GI: reports: no symptoms reported : reports: no symptoms reported Musculoskeletal: reports: no symptoms reported <Keo Chow - Last Filed: 02/19/18 18:44> Cardiology Progress Note - Objective Vital Signs Temp Pulse Pulse Pulse Resp BP BP 02/19/18 15:00 97.7 F 96 16 02/19/18 11:25 97.7 F 72 16 02/19/18 10:09 127 H 94 108/74 92/66 02/19/18 07:15 97.9 F 92 16 BP Pulse Ox 02/19/18 15:00 117/82 95 02/19/18 11:25 111/72 93 L 02/19/18 10:09 02/19/18 07:15 106/90 99 Admit Weight 239 lb 5 oz Weight 214 lb 1.6 oz 02/18/18 02/19/18 02/20/18 06:59 06:59 06:59 Intake Total 940 1148 1027 Output Total 6455 9797 2626 [facility] -535 -[phone] -[phone] - Labs Result Diagrams: 02/18/18 04:33 02/19/18 04:46 Troponin/CKMB CK-MB (CK-2) 6.6 ng/mL (0-6.6) 02/10/18 03:58 Troponin I 0.018 ng/mL (< 0.028) 02/10/18 03:58 - Assessment/Plan Pt. seen and eval. I agree with the A/P by the TEAM PHYSICIAN.He denies c/o's. The edema is improving after increasing the dobutamine. he still feels SOB when lying flat. i will try to diurese as much as possible prior to the cath.
[2018-02-19] MEDS: Temazepam 15 MG CAP PO PRN (23:52)
[2018-02-20 05:25] LABS: Hemoglobin 13.7 g/dL (14.0-18.0); Platelet Count 156 thou/uL (130-400)
[2018-02-20 05:28] LABS: Anion Gap 12 mmol/L (10-20); BUN (Urea Nitrogen) 15 mg/dL (8.4-25.7); Calc. Creatinine Clearance 167 mL/min (70-130); Carbon Dioxide 32 mmol/L (23-31); Chloride 96 mmol/L (98-107); Estimated GFR-MDRD Greater than 90; Glucose 91 mg/dL (80-115); Magnesium 1.6 mg/dL (1.6-2.6); Potassium 3.4 mmol/L (3.5-5.1); Sodium 137 mmol/L (136-145)
[2018-02-20] MEDS: Furosemide 40 MG/4 ML VIAL SLOW IVP SCH ×2 (06:27→14:24)
[2018-02-20] MEDS: Enoxaparin Sodium 100 MG/ML SYRINGE SC SCH ×2 (09:19→20:58)
[2018-02-20] MEDS: Metolazone 5 MG TAB PO SCH (09:19)
[2018-02-20] MEDS: Aspirin 81 mg Enteric Coated Tablet PO SCH (09:19)
[2018-02-20] MEDS: Allopurinol 100 MG TAB PO SCH (09:19)
[2018-02-20] MEDS: Digoxin 0.125 MG TAB PO SCH (09:19)
[2018-02-20] MEDS: Cyanocobalamin (Vitamin B-12) 1,000 MCG TAB PO SCH (09:19)
[2018-02-20] MEDS: Magnesium Oxide 400 MG TAB PO SCH ×2 (09:21→20:59)
[2018-02-20] MEDS: Famotidine 20 MG TAB PO SCH ×3 (09:21→21:25)
[2018-02-20] MEDS: Ferrous Sulfate 325 MG TAB PO SCH (09:21)
[2018-02-20] MEDS: Multivitamin W/ Minerals 1 TAB PO SCH (09:22)
--- NOTE | 2018-02-20 13:33 | PDOC.CTH ---
<Miley Segura - Last Filed: 02/20/18 13:31> Cardiology Progress Note - Subjective The pt seen and examined. No overnight events. No cardiac complaints. He still has difficulties lying on spine position due to worsening of SOB. - Objective Vital Signs Temp Pulse Resp BP BP Pulse Ox 02/20/18 12:41 99.4 F 83 18 121/81 96 02/20/18 09:19 108 H 02/20/18 07:19 98.2 F 122 H 18 123/93 H 97 02/20/18 04:00 97.6 F 112 H 22 H 123/76 93 L Admit Weight 239 lb 5 oz Weight 215 lb 02/19/18 02/20/18 02/21/18 06:59 06:59 06:59 Intake Total 1148 1365 Output Total 4200 3775 Balance -3052 -2410 - Physical Examination General/Neuro: alert & oriented x3 Neck: no JVD present Lungs: CTA Heart: RRR Abdomen: soft Extremities: other: (3+ pitting BLE edema) - Telemetry Telemetry Rhythm: Afib 90-100s - Labs Result Diagrams: 02/20/18 04:52 02/20/18 04:52 Troponin/CKMB CK-MB (CK-2) 6.6 ng/mL (0-6.6) 02/10/18 03:58 Troponin I 0.018 ng/mL (< 0.028) 02/10/18 03:58 - Assessment/Plan 1. Aute on Chronic systolic CHF - etiology not yet determined. Output > 3500ml yesterday. Improving with dieresis and Dobutamine 5mg/kg/min and Lasix 40mg IV BID and Metolazone. On Fluid restriction 1500ml/24hrs. 2. CMY - uncertain etiology. Possible LHC to r/o CAD as a possible etiology when the edema resolve. Long Hx of ETOH abuse. 3, Afib - Rate well controlled with Digoxin 0.125mg PO qd. On Lovenox BID. 4. Hyponatremia - improved 5. Severe MR - evaluate at the time of cardiac cath. If the EF improves and the heart size decreases the MR may improve. If not he may need some sort of intervention. 6. ETOH abuse - ETOH cessation education given to the pt. MAR reviewed. * plan for cath when the pt can lay on spine position. Review of Systems - Review of Systems Constitutional: reports: no symptoms reported EENTM: reports: no symptoms reported Respiratory: reports: see HPI Cardiac (ROS): reports: no symptoms reported ABD/GI: reports: no symptoms reported : reports: no symptoms reported Musculoskeletal: reports: no symptoms reported Skin: reports: no symptoms reported <Keo Cohw Daniel - Last Filed: 02/20/18 18:10> Cardiology Progress Note - Objective Vital Signs Temp Pulse Pulse Pulse Resp BP BP 02/20/18 15:37 97.9 F 99 16 02/20/18 12:41 99.4 F 83 18 02/20/18 11:03 118 H 103 H 124/69 119/78 02/20/18 09:19 108 H 02/20/18 07:19 98.2 F 122 H 18 BP BP Pulse Ox 02/20/18 15:37 109/73 97 02/20/18 12:41 121/81 96 02/20/18 11:03 02/20/18 09:19 02/20/18 07:19 123/93 H 97 Admit Weight 239 lb 5 oz Weight 215 lb 02/19/18 02/20/18 02/21/18 06:59 06:59 06:59 Intake Total 1148 1365 930 Output Total 4200 4045 3400 Balance -5725 -0453 -0884 - Labs Result Diagrams: 02/20/18 04:52 02/20/18 04:52 Troponin/CKMB CK-MB (CK-2) 6.6 ng/mL (0-6.6) 02/10/18 03:58 Troponin I 0.018 ng/mL (< 0.028) 02/10/18 03:58 - Assessment/Plan pt. seen and eval. by me. I agree with the A/P by the CRA OFFICER. Continue diuretics. He is still not able to lie flat without SOB. He continues to have significant edema but is diuresing well. Likely he will not be able to have a cardiac cath until saturday.
--- NOTE | 2018-02-20 14:48 | PDOC.PN ---
- Subjective Encounter Start Date: 02/20/18 Encounter Start Time: 09:50 -: old records requested/rev Pt seen and examined, chart reviewed in its entirety, this is my first visit with this patient Follow up for acute on chronic systlic CHF, paroxysmal afib, Mitral regurg. Pt is 5L net neg over last 48 hours No F/C, no N/V/D/C, no CP or SOB, no cough or sputum production. responding well to diuresis. All systems reviewed and neg except as stated above - Objective Resuscitation Status: Resuscitation Status FULL:Full Resuscitation MAR Reviewed: Yes Vital Signs & Weight: Vital Signs (12 hours) Temp Pulse Pulse Pulse Resp BP BP 02/20/18 12:41 99.4 F 83 18 02/20/18 11:03 118 H 103 H 124/69 119/78 02/20/18 09:19 108 H 02/20/18 07:19 98.2 F 122 H 18 02/20/18 04:00 97.6 F 112 H 22 H BP BP Pulse Ox 02/20/18 12:41 121/81 96 02/20/18 11:03 02/20/18 09:19 02/20/18 07:19 123/93 H 97 02/20/18 04:00 123/76 93 L Weight Admit Weight 239 lb 5 oz Weight 215 lb I&O: 02/19/18 02/20/18 02/21/18 06:59 06:59 06:59 Intake Total 1148 1365 Output Total 4200 3775 Balance -3052 -1120 Result Diagrams: 02/20/18 04:52 02/21/18 04:53 Radiology Reviewed by me: Yes EKG Reviewed by me: Yes Phys Exam - Physical Examination Constitutional: NAD HEENT: PERRLA, moist MMs, sclera anicteric, oral pharynx no lesions Neck: no nodes, no JVD, supple, full ROM Respiratory: no wheezing, no rales, no rhonchi, clear to auscultation bilateral Cardiovascular: RRR, no significant murmur, no rub Gastrointestinal: soft, non-tender, no distention, positive bowel sounds Musculoskeletal: edema present Neurological: non-focal, normal sensation, moves all 4 limbs Lymphatic: no nodes Psychiatric: normal affect, A&O x 3 Skin: no rash, normal turgor, cap refill <2 seconds Dx/Plan (1) Acute systolic ACC/AHA stage C congestive heart failure Code(s): I50.21 - ACUTE SYSTOLIC (CONGESTIVE) HEART FAILURE Status: Acute (2) Atrial fibrillation Code(s): I48.91 - UNSPECIFIED ATRIAL FIBRILLATION Status: Acute Qualifiers: Atrial fibrillation type: chronic Qualified Code(s): I48.2 - Chronic atrial fibrillation Comment: variable rate, on digoxin and elliquis (3) Hypomagnesemia Code(s): E83.42 - HYPOMAGNESEMIA Status: Acute (4) Severe mitral regurgitation Code(s): I34.0 - NONRHEUMATIC MITRAL (VALVE) INSUFFICIENCY Status: Chronic (5) Obesity (BMI 30-39.9) Code(s): E66.9 - OBESITY, UNSPECIFIED Status: Chronic (6) Hypokalemia Code(s): E87.6 - HYPOKALEMIA Status: Resolved - Plan cont current plan of care, PT/OT, respiratory therapy, out of bed/ambulate * . continue to diurese on fixed-dose dobutamine and IV lasix, follow up on cardiology recs
--- NOTE | 2018-02-20 21:03 | PRG ---
DATE OF SERVICE: 02/20/2018 SUBJECTIVE: The patient was seen and examined, seems to be doing much better engaged in physical the rapy and noted with the following vital signs. PHYSICAL EXAMINATION: VITAL SIGNS: Afebrile with temperature 99.4, pulse 83, respiratory rate of 18, O2 sat of 96%, blood pressure of 134/69. HEENT: Unremarkable with moist oral mucosa. NECK: Supple. No conjunctival injection or icterus. CARDIOVASCULAR SYSTEM: First and second heart sounds were heard. RESPIRATORY SYSTEM: Clear to auscultation. DIGESTIVE SYSTEM: Revealed a benign abdomen. EXTREMITIES: Showed peripheral edema, but improving. IMPRESSION: 1. Hypervolemia in the context of problem #2. 2. Cardiac failure. PLAN: 1. The patient seems to be responding to diuretics and we will continue with this modality of treatm ent. 2. Further management to be dependent on the clinical course.
[2018-02-21] MEDS: Acetaminophen 325 MG TAB PO PRN ×2 (02:52→17:55)
[2018-02-21 05:29] LABS: Anion Gap 11 mmol/L (10-20); BUN (Urea Nitrogen) 11 mg/dL (8.4-25.7); Calc. Creatinine Clearance 170 mL/min (70-130); Calcium 9.1 mg/dL (7.8-10.44); Carbon Dioxide 33 mmol/L (23-31); Chloride 94 mmol/L (98-107); Estimated GFR-MDRD Greater than 90; Glucose 87 mg/dL (80-115); Magnesium 1.4 mg/dL (1.6-2.6); Potassium 3.3 mmol/L (3.5-5.1); Sodium 135 mmol/L (136-145)
[2018-02-21] MEDS: Furosemide 40 MG/4 ML VIAL SLOW IVP SCH ×2 (06:09→14:32)
--- NOTE | 2018-02-21 08:55 | PDOC.CTH ---
<Miley Segura - Last Filed: 02/21/18 08:52> Cardiology Progress Note - Subjective The pt seen and examined. No overnight events. No cardiac complaints. He still has difficulties lying on spine position due to worsening of SOB. - Objective Vital Signs Temp Pulse Resp BP Pulse Ox 02/21/18 08:01 98.5 F 93 18 118/63 96 02/21/18 03:05 97.4 F L 85 20 115/74 97 Admit Weight 239 lb 5 oz Weight 215 lb 02/20/18 02/21/18 02/22/18 06:59 06:59 06:59 Intake Total 1365 1010 Output Total 3775 5055 Balance -5639 -9187 - Physical Examination General/Neuro: alert & oriented x3 Neck: no JVD present Lungs: CTA Heart: other: (irregular) Abdomen: soft Extremities: other: (3+ BLE pitting edema) - Telemetry Telemetry Rhythm: Afib 90-100s - Labs Result Diagrams: 02/20/18 04:52 02/21/18 04:53 Troponin/CKMB CK-MB (CK-2) 6.6 ng/mL (0-6.6) 02/10/18 03:58 Troponin I 0.018 ng/mL (< 0.028) 02/10/18 03:58 - Assessment/Plan 1. Aute on Chronic systolic CHF - etiology not yet determined. Output > 5000 ml yesterday. Improving with dieresis and Dobutamine 5mg/kg/min and Lasix 40mg IV BID and Metolazone. On Fluid restriction 1500ml/24hrs. 2. CMY - uncertain etiology. Possible LHC to r/o CAD as a possible etiology when the edema resolve. Long Hx of ETOH abuse. 3, Afib - Rate well controlled with Digoxin 0.125mg PO qd. On Lovenox BID. When his BP is more stable, will start BBlocker. 4. Hyponatremia - improved 5. Severe MR - evaluate at the time of cardiac cath. If the EF improves and the heart size decreases the MR may improve. If not he may need some sort of intervention. 6. ETOH abuse - ETOH cessation education given to the pt. 7. Hypokalemia - start Kcl 40 mEq daily from this AM. MAR reviewed. * plan for cath when the pt can lay on spine position. Review of Systems - Review of Systems Constitutional: reports: no symptoms reported EENTM: reports: no symptoms reported Respiratory: reports: see HPI Cardiac (ROS): reports: no symptoms reported ABD/GI: reports: no symptoms reported : reports: no symptoms reported Musculoskeletal: reports: no symptoms reported <Keo Chow - Last Filed: 02/21/18 19:55> Cardiology Progress Note - Objective Vital Signs Temp Pulse Resp BP Pulse Ox 02/21/18 17:23 97.6 F 87 18 118/84 95 02/21/18 12:12 98.0 F 53 L 18 110/84 97 02/21/18 09:49 93 02/21/18 09:43 96 02/21/18 08:01 98.5 F 93 18 118/63 96 Admit Weight 239 lb 5 oz Weight 215 lb 02/20/18 02/21/18 02/22/18 06:59 06:59 06:59 Intake Total 1365 1010 Output Total 2786 4674 8751 Balance -0631 -8276 -8312 - Labs Result Diagrams: 02/20/18 04:52 02/21/18 04:53 Troponin/CKMB CK-MB (CK-2) 6.6 ng/mL (0-6.6) 02/10/18 03:58 Troponin I 0.018 ng/mL (< 0.028) 02/10/18 03:58 - Assessment/Plan Pt. seen and eval. by me. I agree with the A/P by the BUCKET WASH OPERATOR. He continues to diurese and the edema is improving daily. He is much more comfortable and by Saturday he should be able to undergo a cardiac cath.
[2018-02-21] MEDS ORDERED: Potassium Chloride 20 MEQ TAB PO SCH ×3 (09:00→13:30)
[2018-02-21] MEDS: Digoxin 0.125 MG TAB PO SCH (09:49)
[2018-02-21] MEDS: Cyanocobalamin (Vitamin B-12) 1,000 MCG TAB PO SCH (09:50)
[2018-02-21] MEDS: Multivitamin W/ Minerals 1 TAB PO SCH (09:50)
[2018-02-21] MEDS: Ferrous Sulfate 325 MG TAB PO SCH (09:50)
[2018-02-21] MEDS: Allopurinol 100 MG TAB PO SCH (09:50)
[2018-02-21] MEDS: Magnesium Oxide 400 MG TAB PO SCH ×2 (09:50→20:18)
[2018-02-21] MEDS: Metolazone 5 MG TAB PO SCH (09:50)
[2018-02-21] MEDS: Aspirin 81 mg Enteric Coated Tablet PO SCH (09:51)
[2018-02-21] MEDS: Famotidine 20 MG TAB PO SCH ×2 (09:51→20:18)
[2018-02-21] MEDS: Enoxaparin Sodium 100 MG/ML SYRINGE SC SCH ×2 (09:51→20:18)
--- NOTE | 2018-02-21 13:19 | PDOC.PN ---
- Subjective Encounter Start Date: 02/21/18 Encounter Start Time: 10:30 Subjective: pt up in bed no complains - Objective Resuscitation Status: Resuscitation Status FULL:Full Resuscitation Vital Signs & Weight: Vital Signs (12 hours) Temp Pulse Resp BP Pulse Ox 02/21/18 12:12 98.0 F 53 L 18 110/84 97 02/21/18 09:49 93 02/21/18 09:43 96 02/21/18 08:01 98.5 F 93 18 118/63 96 02/21/18 03:05 97.4 F L 85 20 115/74 97 Weight Admit Weight 239 lb 5 oz Weight 215 lb I&O: 02/20/18 02/21/18 02/22/18 06:59 06:59 06:59 Intake Total 1365 1010 Output Total 6081 7570 Balance -4832 -1288 Result Diagrams: 02/20/18 04:52 02/21/18 04:53 Phys Exam - Physical Examination Neck: no nodes, no JVD, supple, full ROM Respiratory: no wheezing, no rales, no rhonchi, wheezing present, clear to auscultation bilateral Cardiovascular: RRR, no significant murmur, no rub, gallop, irregular Gastrointestinal: soft, non-tender, no distention, positive bowel sounds Dx/Plan (1) Acute systolic ACC/AHA stage C congestive heart failure Code(s): I50.21 - ACUTE SYSTOLIC (CONGESTIVE) HEART FAILURE Status: Acute (2) Acute respiratory failure with hypoxia Code(s): J96.01 - ACUTE RESPIRATORY FAILURE WITH HYPOXIA Status: Resolved (3) Hypomagnesemia Code(s): E83.42 - HYPOMAGNESEMIA Status: Acute (4) Obesity (BMI 30-39.9) Code(s): E66.9 - OBESITY, UNSPECIFIED Status: Chronic (5) Severe mitral regurgitation Code(s): I34.0 - NONRHEUMATIC MITRAL (VALVE) INSUFFICIENCY Status: Chronic - Plan pt on dobutamine -: cath on saturday -: continue lasix -: will replace electrolytes * . Review of Systems - Review of Systems Respiratory: negative: Cough, Dry, Shortness of Breath, Hemoptysis, SOB with Excertion, Pleuritic Pain, Sputum, Wheezing Cardiovascular: negative: chest pain, palpitations, orthopnea, paroxysmal nocturnal dyspnea, edema, light headedness, other Gastrointestinal: negative: Nausea, Vomiting, Abdominal Pain, Diarrhea, Constipation, Melena, Hematochezia, Other Genitourinary: negative: Dysuria, Frequency, Incontinence, Hematuria, Retention , Other - Medications/Allergies Allergies/Adverse Reactions: Allergies Allergy/AdvReac Type Severity Reaction Status Date / Time cucumber Allergy Verified 02/10/18 02:44 melon Allergy Verified 02/10/18 02:44 naproxen AdvReac Stomach Verified 09/22/16 23:08 Ache Medications: Current Medications Acetaminophen (Tylenol) 650 mg PO Q4H PRN PRN Reason: Headache/Fever/Mild Pain (1-3) Last Admin: 02/21/18 02:52 Dose: 650 mg Allopurinol (Zyloprim) 100 mg PO DAILY [facility] Last Admin: 02/21/18 09:50 Dose: 100 mg Artificial Tears (Tears Naturale) 0 drop EA EYE PRN PRN PRN Reason: Dry Eyes Aspirin (Ecotrin) 81 mg PO DAILY [facility] Last Admin: 02/21/18 09:51 Dose: 81 mg Calcium Carbonate (Tums) 1,000 mg PO Q4H PRN PRN Reason: Heartburn or Indigestion Cyanocobalamin (Vitamin B-12) 1,000 mcg PO DAILY [facility] Last Admin: 02/21/18 09:50 Dose: 1,000 mcg Digoxin (Lanoxin) 0.125 mg PO QAM [facility] Last Admin: 02/21/18 09:49 Dose: 0.125 mg Enoxaparin Sodium (Lovenox) 100 mg SC 0900,2100 [facility] Last Admin: 02/21/18 09:51 Dose: 100 mg Famotidine (Pepcid) 20 mg PO BID [facility] Last Admin: 02/21/18 09:51 Dose: Not Given Ferrous Sulfate (Feosol) 325 mg PO DAILY [facility] Last Admin: 02/21/18 09:50 Dose: 325 mg Furosemide (Lasix) 40 mg SLOW IVP 0600,1400 [facility] Last Admin: 02/21/18 06:09 Dose: 40 mg Guaifenesin (Robitussin Sf) 200 mg PO Q4H PRN PRN Reason: Cough Hydralazine HCl (Apresoline) 10 mg SLOW IVP Q4H PRN PRN Reason: Systolic BP > 180 Dobutamine HCl 1,000 mg/ (Dextrose/Water) 250 mls @ 7.29 mls/hr IVPB INF [facility] Iron/Minerals/Multivitamins (Theragran M) 1 tab PO DAILY [facility] Last Admin: 02/21/18 09:50 Dose: 1 tab Loperamide HCl (Imodium) 2 mg PO PRN PRN PRN Reason: Diarrhea/Loose Stools Last Admin: 02/15/18 22:04 Dose: 2 mg Loratadine (Claritin) 10 mg PO DAILYPRN PRN PRN Reason: Sinus Symptoms Magnesium Hydroxide (Milk Of Magnesium) 30 ml PO DAILYPRN PRN PRN Reason: Constipation Magnesium Oxide (Magnesium Oxide) 400 mg PO BID [facility] Last Admin: 02/21/18 09:50 Dose: 400 mg Metolazone (Zaroxolyn) 5 mg PO 0830 [facility] Last Admin: 02/21/18 09:50 Dose: 5 mg Mineral Oil/White Petrolatum (Eucerin Cream) 0 gm TOP BIDPRN PRN PRN Reason: Dry Skin Nitroglycerin (Nitrostat) 0.4 mg SL Q5MIN PRN PRN Reason: Chest Pain Ondansetron HCl (Zofran Odt) 4 mg PO Q6H PRN PRN Reason: Nausea/Vomiting Ondansetron HCl (Zofran) 4 mg IVP Q6H PRN PRN Reason: Nausea/Vomiting Last Admin: 02/15/18 12:27 Dose: 4 mg Phenol (Chloraseptic Elim 180 Ml Bot) 0 ml PO PRN PRN PRN Reason: Sore Throat Potassium Chloride (K-Dur) 40 meq PO QAM[facility] Senna (Senokot) 2 tab PO HSPRN PRN PRN Reason: Constipation Sodium Chloride (Flush - Normal Saline) 10 ml IVF Q12H PRN PRN Reason: Saline Flush Last Admin: 02/16/18 23:10 Dose: 10 ml Sodium Chloride (Flush - Normal Saline) 10 ml IVF PRN PRN PRN Reason: Saline Flush Last Admin: 02/13/18 05:39 Dose: 10 ml Sodium Chloride ([place] Nasal Elim 0.65%) 0 ml EA NARE QIDPRN PRN PRN Reason: Nasal Congestion Thiamine HCl (Thiamine) 100 mg PO DAILY [facility] Last Admin: 02/21/18 09:50 Dose: 100 mg
--- NOTE | 2018-02-21 15:23 | PRG ---
DATE OF SERVICE: 02/21/2018 SUBJECTIVE: The patient was seen and examined, seems to be doing okay, hemodynamically stable. OBJECTIVE: HEENT: Unremarkable. CARDIOVASCULAR: First and second heart sounds were heard. RESPIRATORY: Clear to auscultation. DIGESTIVE: Revealed a benign abdomen with positive bowel sounds. EXTREMITIES: Showed improved peripheral edema. SKIN: No new gross rash. LYMPHATICS: No peripheral lymphadenopathy. NEUROLOGIC: Input and output showed the patient made about 5 liters of urine. IMPRESSION: Hypervolemia in the context of cardiac failure. PLAN: 1. We will continue current renal supportive measures. 2. Diuresis. 3. Further management to be dependent on the clinical course.
[2018-02-21] MEDS: Temazepam 15 MG CAP PO PRN (23:37)
[2018-02-22] MEDS: Furosemide 40 MG/4 ML VIAL SLOW IVP SCH ×2 (05:12→14:27)
[2018-02-22 05:32] LABS: Hemoglobin 13.8 g/dL (14.0-18.0); Platelet Count 172 thou/uL (130-400)
[2018-02-22 05:34] LABS: Anion Gap 10 mmol/L (10-20); BUN (Urea Nitrogen) 11 mg/dL (8.4-25.7); Calc. Creatinine Clearance 153 mL/min (70-130); Calcium 9.6 mg/dL (7.8-10.44); Carbon Dioxide 35 mmol/L (23-31); Chloride 95 mmol/L (98-107); Estimated GFR-MDRD Greater than 90; Glucose 82 mg/dL (80-115); Magnesium 1.6 mg/dL (1.6-2.6); Potassium 3.6 mmol/L (3.5-5.1); Sodium 136 mmol/L (136-145)
[2018-02-22] MEDS: Potassium Chloride 20 MEQ TAB PO SCH (08:41)
[2018-02-22] MEDS: Allopurinol 100 MG TAB PO SCH (08:41)
[2018-02-22] MEDS: Metolazone 5 MG TAB PO SCH (08:41)
[2018-02-22] MEDS: Aspirin 81 mg Enteric Coated Tablet PO SCH (08:42)
[2018-02-22] MEDS: Enoxaparin Sodium 100 MG/ML SYRINGE SC SCH ×2 (08:42→20:54)
[2018-02-22] MEDS: Cyanocobalamin (Vitamin B-12) 1,000 MCG TAB PO SCH (08:42)
[2018-02-22] MEDS: Digoxin 0.125 MG TAB PO SCH (08:42)
[2018-02-22] MEDS: Famotidine 20 MG TAB PO SCH ×2 (08:43→20:54)
[2018-02-22] MEDS: Ferrous Sulfate 325 MG TAB PO SCH (08:43)
[2018-02-22] MEDS: Magnesium Oxide 400 MG TAB PO SCH ×2 (08:44→20:55)
[2018-02-22] MEDS: Multivitamin W/ Minerals 1 TAB PO SCH (08:44)
--- NOTE | 2018-02-22 11:31 | PDOC.PN ---
- Subjective Encounter Start Date: 02/22/18 Encounter Start Time: 11:11 Subjective: pt up in bed no complains - Objective Resuscitation Status: Resuscitation Status FULL:Full Resuscitation Vital Signs & Weight: Vital Signs (12 hours) Temp Pulse Resp BP BP BP Pulse Ox 02/22/18 08:42 135 H 02/22/18 08:38 98.8 F 135 H 16 108/77 97 02/22/18 04:00 97.6 F 120 H 12 129/86 95 02/22/18 00:00 125 H 20 116/87 Weight Admit Weight 239 lb 5 oz Weight 205 lb 14.4 oz I&O: 02/21/18 02/22/18 02/23/18 06:59 06:59 06:59 Intake Total 1010 847 Output Total 4817 0056 Balance -4939 -4801 Result Diagrams: 02/22/18 04:31 02/22/18 04:31 Phys Exam - Physical Examination Neck: no nodes, no JVD, supple, full ROM Respiratory: no wheezing, no rales, no rhonchi, wheezing present, clear to auscultation bilateral Cardiovascular: RRR, no significant murmur, no rub, gallop, irregular Gastrointestinal: soft, non-tender, no distention, positive bowel sounds Dx/Plan (1) Acute systolic ACC/AHA stage C congestive heart failure Code(s): I50.21 - ACUTE SYSTOLIC (CONGESTIVE) HEART FAILURE Status: Acute (2) Acute respiratory failure with hypoxia Code(s): J96.01 - ACUTE RESPIRATORY FAILURE WITH HYPOXIA Status: Resolved (3) Hypomagnesemia Code(s): E83.42 - HYPOMAGNESEMIA Status: Acute (4) Obesity (BMI 30-39.9) Code(s): E66.9 - OBESITY, UNSPECIFIED Status: Chronic (5) Severe mitral regurgitation Code(s): I34.0 - NONRHEUMATIC MITRAL (VALVE) INSUFFICIENCY Status: Chronic - Plan continue lasix, bp has improved on dobutamine -: will continue current meds * . Review of Systems - Review of Systems Respiratory: negative: Cough, Dry, Shortness of Breath, Hemoptysis, SOB with Excertion, Pleuritic Pain, Sputum, Wheezing Cardiovascular: negative: chest pain, palpitations, orthopnea, paroxysmal nocturnal dyspnea, edema, light headedness, other Gastrointestinal: negative: Nausea, Vomiting, Abdominal Pain, Diarrhea, Constipation, Melena, Hematochezia, Other Genitourinary: negative: Dysuria, Frequency, Incontinence, Hematuria, Retention , Other - Medications/Allergies Allergies/Adverse Reactions: Allergies Allergy/AdvReac Type Severity Reaction Status Date / Time cucumber Allergy Verified 02/10/18 02:44 melon Allergy Verified 02/10/18 02:44 naproxen AdvReac Stomach Verified 09/22/16 23:08 Ache Medications: Current Medications Acetaminophen (Tylenol) 650 mg PO Q4H PRN PRN Reason: Headache/Fever/Mild Pain (1-3) Last Admin: 02/21/18 17:55 Dose: 650 mg Allopurinol (Zyloprim) 100 mg PO DAILY [facility] Last Admin: 02/22/18 08:41 Dose: 100 mg Artificial Tears (Tears Naturale) 0 drop EA EYE PRN PRN PRN Reason: Dry Eyes Aspirin (Ecotrin) 81 mg PO DAILY [facility] Last Admin: 02/22/18 08:42 Dose: 81 mg Calcium Carbonate (Tums) 1,000 mg PO Q4H PRN PRN Reason: Heartburn or Indigestion Cyanocobalamin (Vitamin B-12) 1,000 mcg PO DAILY [facility] Last Admin: 02/22/18 08:42 Dose: 1,000 mcg Digoxin (Lanoxin) 0.125 mg PO QAM [facility] Last Admin: 02/22/18 08:42 Dose: 0.125 mg Enoxaparin Sodium (Lovenox) 100 mg SC 0900,2100 [facility] Last Admin: 02/22/18 08:42 Dose: 100 mg Famotidine (Pepcid) 20 mg PO BID [facility] Last Admin: 02/22/18 08:43 Dose: Not Given Ferrous Sulfate (Feosol) 325 mg PO DAILY [facility] Last Admin: 02/22/18 08:43 Dose: 325 mg Furosemide (Lasix) 40 mg SLOW IVP 0600,1400 [facility] Last Admin: 02/22/18 05:12 Dose: 40 mg Guaifenesin (Robitussin Sf) 200 mg PO Q4H PRN PRN Reason: Cough Hydralazine HCl (Apresoline) 10 mg SLOW IVP Q4H PRN PRN Reason: Systolic BP > 180 Dobutamine HCl 1,000 mg/ (Dextrose/Water) 250 mls @ 7.29 mls/hr IVPB INF [facility] Iron/Minerals/Multivitamins (Theragran M) 1 tab PO DAILY [facility] Last Admin: 02/22/18 08:44 Dose: 1 tab Loperamide HCl (Imodium) 2 mg PO PRN PRN PRN Reason: Diarrhea/Loose Stools Last Admin: 02/15/18 22:04 Dose: 2 mg Loratadine (Claritin) 10 mg PO DAILYPRN PRN PRN Reason: Sinus Symptoms Magnesium Hydroxide (Milk Of Magnesium) 30 ml PO DAILYPRN PRN PRN Reason: Constipation Magnesium Oxide (Magnesium Oxide) 400 mg PO BID [facility] Last Admin: 02/22/18 08:44 Dose: 400 mg Metolazone (Zaroxolyn) 5 mg PO 0830 [facility] Last Admin: 02/22/18 08:41 Dose: 5 mg Mineral Oil/White Petrolatum (Eucerin Cream) 0 gm TOP BIDPRN PRN PRN Reason: Dry Skin Nitroglycerin (Nitrostat) 0.4 mg SL Q5MIN PRN PRN Reason: Chest Pain Ondansetron HCl (Zofran Odt) 4 mg PO Q6H PRN PRN Reason: Nausea/Vomiting Ondansetron HCl (Zofran) 4 mg IVP Q6H PRN PRN Reason: Nausea/Vomiting Last Admin: 02/15/18 12:27 Dose: 4 mg Phenol (Chloraseptic [place] 180 Ml Bot) 0 ml PO PRN PRN PRN Reason: Sore Throat Potassium Chloride (K-Dur) 40 meq PO QAM-WM [facility] Last Admin: 02/22/18 08:41 Dose: 40 meq Senna (Senokot) 2 tab PO HSPRN PRN PRN Reason: Constipation Sodium Chloride (Flush - Normal Saline) 10 ml IVF Q12H PRN PRN Reason: Saline Flush Last Admin: 02/16/18 23:10 Dose: 10 ml Sodium Chloride (Flush - Normal Saline) 10 ml IVF PRN PRN PRN Reason: Saline Flush Last Admin: 02/22/18 05:15 Dose: 10 ml Sodium Chloride ([employer] Nasal [place] 0.65%) 0 ml EA NARE QIDPRN PRN PRN Reason: Nasal Congestion Temazepam (Restoril) 15 mg PO HS PRN PRN Reason: Insomnia Last Admin: 02/21/18 23:37 Dose: 15 mg Thiamine HCl (Thiamine) 100 mg PO DAILY [facility] Last Admin: 02/22/18 08:44 Dose: 100 mg
--- NOTE | 2018-02-22 12:14 | EKG ---
Test Reason : Blood Pressure : / mmHG Vent. Rate : 129 BPM Atrial Rate : 117 BPM P-R Int : 000 ms QRS Dur : 096 ms QT Int : 316 ms P-R-T Axes : 000 089 -49 degrees QTc Int : 462 ms Atrial fibrillation with rapid ventricular response Low voltage QRS Cannot rule out Anterior infarct , age undetermined Abnormal ECG Confirmed by AUREA IRVIN, SPR[place] ([id number]), editor publications LEAH MIRZA ([id number]) on 02/22/2018 12:13:58 PM Referred By: Confirmed By:SPRING VILLAR MD
[2018-02-22] MEDS ORDERED: Digoxin 0.5 MG/2 ML AMP SLOW IVP SCH (12:30)
--- NOTE | 2018-02-22 12:30 | PDOC.CTH ---
<Miley Segura - Last Filed: 02/22/18 12:28> Cardiology Progress Note - Subjective The pt seen and examined. No overnight events. No cardiac complaints. He has been walking with RA without any cardiac complaints. - Objective Vital Signs Temp Pulse Pulse Pulse Resp BP BP 02/22/18 11:54 98.0 F 138 H 16 02/22/18 10:46 149 H 100 122/82 98/62 02/22/18 08:42 135 H 02/22/18 08:38 98.8 F 135 H 16 02/22/18 04:00 97.6 F 120 H 12 BP BP Pulse Ox 02/22/18 11:54 116/70 98 02/22/18 10:46 02/22/18 08:42 02/22/18 08:38 108/77 97 02/22/18 04:00 129/86 95 Admit Weight 239 lb 5 oz Weight 205 lb 14.4 oz 02/21/18 02/22/18 02/23/18 06:59 06:59 06:59 Intake Total 1010 847 Output Total 5055 3497 Balance -4045 -2650 - Physical Examination General/Neuro: alert & oriented x3 Neck: no JVD present Lungs: CTA Heart: other: (irregular) Abdomen: soft Extremities: other: (2-3+ pitting BLE edema) - Telemetry Telemetry Rhythm: Afib 130-150s - Labs Result Diagrams: 02/22/18 04:31 02/22/18 04:31 Troponin/CKMB CK-MB (CK-2) 6.6 ng/mL (0-6.6) 02/10/18 03:58 Troponin I 0.018 ng/mL (< 0.028) 02/10/18 03:58 - Assessment/Plan 1. Aute on Chronic systolic CHF - etiology not yet determined. Output about 3500 ml yesterday. Improving with diuretic and Dobutamine 5mg/kg/min and Lasix 40mg IV BID and Metolazone. On Fluid restriction 1500ml/24hrs. 2. CMY - uncertain etiology. Possible LHC to r/o CAD as a possible etiology when the edema resolve. Long Hx of ETOH abuse. 3, Afib - HR has been 130-150s today. Digoxin 0.25mg IV push x1 now. On Lovenox BID. When his BP is more stable, will start BBlocker. 4. Hyponatremia - improved 5. Severe MR - will evaluate at the time of cardiac cath. If the EF improves and the heart size decreases the MR may improve. If not he may need some sort of intervention. 6. ETOH abuse - ETOH cessation education given to the pt. 7. Hypokalemia - start Kcl 40 mEq daily from this AM. MAR reviewed. * plan for cath when the pt can lay on spine position. Review of Systems - Review of Systems Constitutional: reports: no symptoms reported EENTM: reports: no symptoms reported Respiratory: reports: no symptoms reported Cardiac (ROS): reports: no symptoms reported ABD/GI: reports: no symptoms reported : reports: no symptoms reported Musculoskeletal: reports: no symptoms reported Skin: reports: no symptoms reported Neurological: reports: no symptoms reported <Keo Chow - Last Filed: 02/22/18 23:57> Cardiology Progress Note - Objective Vital Signs Temp Pulse Resp BP BP Pulse Ox 02/22/18 19:30 97.9 F 80 16 101/69 95 02/22/18 16:40 97.6 F 82 16 119/83 96 02/22/18 12:49 128 H 02/22/18 11:54 98.0 F 138 H 16 116/70 98 Admit Weight 239 lb 5 oz Weight 205 lb 14.4 oz 02/21/18 02/22/18 02/23/18 06:59 06:59 06:59 Intake Total 2154 629 2786 Output Total 5055 3497 2800 Balance -2706 -3122 -1820 - Labs Result Diagrams: 02/22/18 04:31 02/22/18 04:31 Troponin/CKMB CK-MB (CK-2) 6.6 ng/mL (0-6.6) 02/10/18 03:58 Troponin I 0.018 ng/mL (< 0.028) 02/10/18 03:58 - Assessment/Plan Pt. seen and evaluated by me. I agree with the A/P by the CANOE INSPECTOR FINAL. We have discussed the pt. and the plan.Chest clear. Irreg/irreg. Tachycardia associated with the Afib. Somewhat controlled with digoxin. Betablockers held at this time while pt is on dobutamine. He is still edematous but continue to improve daily. Plan is to cath the pt. on Saturday if he can lie flat without dyspnea. He thinks that he can now. Will change to po lasix tomorrow. Start coreg and then see if he tolerates being off the dobutamine. If not, he may need to be eval. for an LVAD. This will depend on the results of the cardiac cath.
[2018-02-22] MEDS: Acetaminophen 325 MG TAB PO PRN (15:18)
--- NOTE | 2018-02-22 21:48 | PRG ---
DATE OF SERVICE: 02/22/2018 SUBJECTIVE: The patient seen and examined. OBJECTIVE: VITAL SIGNS: Afebrile, temperature 98, pulse 121-138, respiratory of 16, O2 sat on 98%, blood pressu re 122/82. HEENT: Unremarkable. CARDIOVASCULAR: First and second heart sounds were heard. RESPIRATORY: Clear to auscultation. ABDOMEN: Digestive system revealed a benign abdomen. EXTREMITIES: Showed improved lower extremity edema. IMPRESSION: 1. Biventricular heart failure . 2. Hypervolemia responding to diuresis. 3. Tachyarrhythmia, query cause. PLAN: 1. The patient currently on diuresis, may be time to begin to deescalate the diuresis. 2. Further management to be dependent on the clinical course. We will defer to the Cardiology as re lates to the management of the tachyarrhythmia.
[2018-02-22] MEDS: Temazepam 15 MG CAP PO PRN (23:57)
[2018-02-23 06:01] LABS: Anion Gap 8 mmol/L (10-20); BUN (Urea Nitrogen) 12 mg/dL (8.4-25.7); Calc. Creatinine Clearance 143 mL/min (70-130); Calcium 9.9 mg/dL (7.8-10.44); Carbon Dioxide 37 mmol/L (23-31); Chloride 96 mmol/L (98-107); Estimated GFR-MDRD Greater than 90; Glucose 87 mg/dL (80-115); Magnesium 1.4 mg/dL (1.6-2.6); Potassium 3.4 mmol/L (3.5-5.1); Sodium 138 mmol/L (136-145)
[2018-02-23] MEDS: Furosemide 40 MG/4 ML VIAL SLOW IVP SCH ×2 (06:37→14:58)
[2018-02-23] MEDS: Potassium Chloride 20 MEQ TAB PO SCH (09:10)
[2018-02-23] MEDS: Aspirin 81 mg Enteric Coated Tablet PO SCH (09:10)
[2018-02-23] MEDS: Metolazone 5 MG TAB PO SCH (09:10)
[2018-02-23] MEDS: Allopurinol 100 MG TAB PO SCH (09:10)
[2018-02-23] MEDS: Cyanocobalamin (Vitamin B-12) 1,000 MCG TAB PO SCH (09:10)
[2018-02-23] MEDS: Digoxin 0.125 MG TAB PO SCH (09:11)
[2018-02-23] MEDS: Enoxaparin Sodium 100 MG/ML SYRINGE SC SCH ×2 (09:11→20:57)
[2018-02-23] MEDS: Ferrous Sulfate 325 MG TAB PO SCH (09:11)
[2018-02-23] MEDS: Famotidine 20 MG TAB PO SCH ×2 (09:11→20:57)
[2018-02-23] MEDS: Magnesium Oxide 400 MG TAB PO SCH ×2 (09:12→20:57)
[2018-02-23] MEDS: Multivitamin W/ Minerals 1 TAB PO SCH (09:12)
[2018-02-23] MEDS: Acetaminophen 325 MG TAB PO PRN ×3 (09:12→22:29)
--- NOTE | 2018-02-23 13:10 | PDOC.PN ---
- Subjective Encounter Start Date: 02/23/18 Encounter Start Time: 10:30 Subjective: pt up in bed no complains - Objective Resuscitation Status: Resuscitation Status FULL:Full Resuscitation Vital Signs & Weight: Vital Signs (12 hours) Temp Pulse Resp BP BP Pulse Ox 02/23/18 11:41 98.4 F 86 18 115/65 95 02/23/18 09:11 97 02/23/18 09:05 98.6 F 97 16 115/85 96 02/23/18 05:26 95 02/23/18 03:52 97.8 F 91 14 115/84 99 Weight Admit Weight 239 lb 5 oz Weight 194 lb 3.2 oz I&O: 02/22/18 02/23/18 02/24/18 06:59 06:59 06:59 Intake Total 847 1386 Output Total 3497 3900 Balance -3631 -6147 Result Diagrams: 02/22/18 04:31 02/23/18 05:24 Phys Exam - Physical Examination Neck: no nodes, no JVD, supple, full ROM Respiratory: no wheezing, no rales, no rhonchi, wheezing present, clear to auscultation bilateral Cardiovascular: RRR, no significant murmur, no rub, gallop, irregular Gastrointestinal: soft, non-tender, no distention, positive bowel sounds Dx/Plan (1) Acute systolic ACC/AHA stage C congestive heart failure Code(s): I50.21 - ACUTE SYSTOLIC (CONGESTIVE) HEART FAILURE Status: Acute (2) Acute respiratory failure with hypoxia Code(s): J96.01 - ACUTE RESPIRATORY FAILURE WITH HYPOXIA Status: Resolved (3) Hypomagnesemia Code(s): E83.42 - HYPOMAGNESEMIA Status: Acute (4) Obesity (BMI 30-39.9) Code(s): E66.9 - OBESITY, UNSPECIFIED Status: Chronic (5) Severe mitral regurgitation Code(s): I34.0 - NONRHEUMATIC MITRAL (VALVE) INSUFFICIENCY Status: Chronic - Plan pt's vitals are stable -: pt going for cath in am -: continue dobutamine drip -: will replace his electrolytes * . Review of Systems - Review of Systems Respiratory: negative: Cough, Dry, Shortness of Breath, Hemoptysis, SOB with Excertion, Pleuritic Pain, Sputum, Wheezing Cardiovascular: negative: chest pain, palpitations, orthopnea, paroxysmal nocturnal dyspnea, edema, light headedness, other Gastrointestinal: negative: Nausea, Vomiting, Abdominal Pain, Diarrhea, Constipation, Melena, Hematochezia, Other Genitourinary: negative: Dysuria, Frequency, Incontinence, Hematuria, Retention , Other - Medications/Allergies Allergies/Adverse Reactions: Allergies Allergy/AdvReac Type Severity Reaction Status Date / Time cucumber Allergy Verified 02/10/18 02:44 melon Allergy Verified 02/10/18 02:44 naproxen AdvReac Stomach Verified 09/22/16 23:08 Ache Medications: Current Medications Acetaminophen (Tylenol) 650 mg PO Q4H PRN PRN Reason: Headache/Fever/Mild Pain (1-3) Last Admin: 02/23/18 09:12 Dose: 650 mg Allopurinol (Zyloprim) 100 mg PO DAILY [facility] Last Admin: 02/23/18 09:10 Dose: 100 mg Artificial Tears (Tears Naturale) 0 drop EA EYE PRN PRN PRN Reason: Dry Eyes Aspirin (Ecotrin) 81 mg PO DAILY [facility] Last Admin: 02/23/18 09:10 Dose: 81 mg Calcium Carbonate (Tums) 1,000 mg PO Q4H PRN PRN Reason: Heartburn or Indigestion Cyanocobalamin (Vitamin B-12) 1,000 mcg PO DAILY [facility] Last Admin: 02/23/18 09:10 Dose: 1,000 mcg Digoxin (Lanoxin) 0.125 mg PO QAM [facility] Last Admin: 02/23/18 09:11 Dose: 0.125 mg Enoxaparin Sodium (Lovenox) 100 mg SC 0900,2100 [facility] Last Admin: 02/23/18 09:11 Dose: 100 mg Famotidine (Pepcid) 20 mg PO BID [facility] Last Admin: 02/23/18 09:11 Dose: Not Given Ferrous Sulfate (Feosol) 325 mg PO DAILY [facility] Last Admin: 02/23/18 09:11 Dose: 325 mg Furosemide (Lasix) 40 mg SLOW IVP 0600,1400 [facility] Last Admin: 02/23/18 06:37 Dose: 40 mg Guaifenesin (Robitussin Sf) 200 mg PO Q4H PRN PRN Reason: Cough Hydralazine HCl (Apresoline) 10 mg SLOW IVP Q4H PRN PRN Reason: Systolic BP > 180 Dobutamine HCl 1,000 mg/ (Dextrose/Water) 250 mls @ 7.29 mls/hr IVPB INF [facility] Last Admin: 02/22/18 18:56 Dose: 250 mls Iron/Minerals/Multivitamins (Theragran M) 1 tab PO DAILY [facility] Last Admin: 02/23/18 09:12 Dose: 1 tab Loperamide HCl (Imodium) 2 mg PO PRN PRN PRN Reason: Diarrhea/Loose Stools Last Admin: 02/15/18 22:04 Dose: 2 mg Loratadine (Claritin) 10 mg PO DAILYPRN PRN PRN Reason: Sinus Symptoms Magnesium Hydroxide (Milk Of Magnesium) 30 ml PO DAILYPRN PRN PRN Reason: Constipation Magnesium Oxide (Magnesium Oxide) 400 mg PO BID [facility] Last Admin: 02/23/18 09:12 Dose: 400 mg Metolazone (Zaroxolyn) 5 mg PO 0830 [facility] Last Admin: 02/23/18 09:10 Dose: 5 mg Mineral Oil/White Petrolatum (Eucerin Cream) 0 gm TOP BIDPRN PRN PRN Reason: Dry Skin Nitroglycerin (Nitrostat) 0.4 mg SL Q5MIN PRN PRN Reason: Chest Pain Ondansetron HCl (Zofran Odt) 4 mg PO Q6H PRN PRN Reason: Nausea/Vomiting Ondansetron HCl (Zofran) 4 mg IVP Q6H PRN PRN Reason: Nausea/Vomiting Last Admin: 02/15/18 12:27 Dose: 4 mg Phenol (Chloraseptic [place] 180 Ml Bot) 0 ml PO PRN PRN PRN Reason: Sore Throat Potassium Chloride (K-Dur) 40 meq PO QAM-WM [facility] Last Admin: 02/23/18 09:10 Dose: 40 meq Senna (Senokot) 2 tab PO HSPRN PRN PRN Reason: Constipation Sodium Chloride (Flush - Normal Saline) 10 ml IVF Q12H PRN PRN Reason: Saline Flush Last Admin: 02/16/18 23:10 Dose: 10 ml Sodium Chloride (Flush - Normal Saline) 10 ml IVF PRN PRN PRN Reason: Saline Flush Last Admin: 02/22/18 05:15 Dose: 10 ml Sodium Chloride ([place] Nasal [place] 0.65%) 0 ml EA NARE QIDPRN PRN PRN Reason: Nasal Congestion Temazepam (Restoril) 15 mg PO HS PRN PRN Reason: Insomnia Last Admin: 02/22/18 23:57 Dose: 15 mg Thiamine HCl (Thiamine) 100 mg PO DAILY [facility] Last Admin: 02/23/18 09:12 Dose: 100 mg
[2018-02-23] MEDS ORDERED: Potassium Chloride 20 MEQ TAB PO SCH (13:15)
--- NOTE | 2018-02-23 13:36 | PDOC.CTH ---
<Miley Segura - Last Filed: 02/23/18 13:51> Cardiology Progress Note - Subjective The pt seen and examined. No overnight events. No cardiac complaints. HR has been 70-150s with Afib. - Objective Vital Signs Temp Pulse Resp BP BP Pulse Ox 02/23/18 11:41 98.4 F 86 18 115/65 95 02/23/18 09:11 97 02/23/18 09:05 98.6 F 97 16 115/85 96 02/23/18 05:26 95 02/23/18 03:52 97.8 F 91 14 115/84 99 Admit Weight 239 lb 5 oz Weight 194 lb 3.2 oz 02/22/18 02/23/18 02/24/18 06:59 06:59 06:59 Intake Total 847 1386 Output Total 3497 3900 Balance -7655 -4291 - Physical Examination General/Neuro: alert & oriented x3 Neck: no JVD present Lungs: CTA Heart: other: (irregular) Abdomen: soft Extremities: other: (3+ pitting BLE edemas) - Telemetry Telemetry Rhythm: Afib with 70-150s - Labs Result Diagrams: 02/22/18 04:31 02/23/18 05:24 Troponin/CKMB CK-MB (CK-2) 6.6 ng/mL (0-6.6) 02/10/18 03:58 Troponin I 0.018 ng/mL (< 0.028) 02/10/18 03:58 - Assessment/Plan 1. Aute on Chronic systolic CHF - etiology not yet determined. Output about 3500 ml yesterday. Improving with diuretic and Dobutamine 5mg/kg/min and Lasix 40mg IV BID and Metolazone. On Fluid restriction 1500ml/24hrs. 2. CMY - uncertain etiology. Possible LHC to r/o CAD as a possible etiology when the edema resolve. Long Hx of ETOH abuse. 3, Afib - HR has been 130-150s today. Will decrease dobutamine to 2.5mg/kg/min and start Coreg 3.125mg 1/2 tab BID. On Lovenox BID. When his BP is more stable, will start BBlocker. 4. Hyponatremia - improved 5. Severe MR - will evaluate at the time of cardiac cath. If the EF improves and the heart size decreases the MR may improve. If not he may need some sort of intervention. 6. ETOH abuse - ETOH cessation education given to the pt. 7. Hypokalemia - start Kcl 40 mEq daily from this AM. MAR reviewed. * plan for cath when the pt can lay on spine position (on Saturday?) Review of Systems - Review of Systems Constitutional: reports: no symptoms reported EENTM: reports: no symptoms reported Respiratory: reports: no symptoms reported Cardiac (ROS): reports: no symptoms reported ABD/GI: reports: no symptoms reported : reports: no symptoms reported Musculoskeletal: reports: no symptoms reported Skin: reports: no symptoms reported Neurological: reports: no symptoms reported <Keo Chow - Last Filed: 02/23/18 22:23> Cardiology Progress Note - Objective Vital Signs Temp Pulse Pulse Pulse Resp BP BP 02/23/18 19:35 97.6 F 100 20 02/23/18 15:51 97.3 F L 94 17 02/23/18 11:41 98.4 F 86 18 02/23/18 11:02 100 82 104/69 120/71 BP BP Pulse Ox Pulse Ox Pulse Ox 02/23/18 19:35 100/74 96 02/23/18 15:51 92/72 95 02/23/18 11:41 115/65 95 02/23/18 11:02 96 94 L Admit Weight 239 lb 5 oz Weight 194 lb 3.2 oz 02/22/18 02/23/18 02/24/18 06:59 06:59 06:59 Intake Total 847 1386 1333 Output Total 3497 3900 1125 Balance -3059 -7167 208 - Labs Result Diagrams: 02/22/18 04:31 02/23/18 05:24 Troponin/CKMB CK-MB (CK-2) 6.6 ng/mL (0-6.6) 02/10/18 03:58 Troponin I 0.018 ng/mL (< 0.028) 02/10/18 03:58 - Assessment/Plan Pt. seen and evaluated by me. I agree with the A/P by the JACKHAMMER SPLITTER OPERATOR. We have discussed the pt. and the plan.Chest clear RRR. Plan for cath in AM.
[2018-02-23] MEDS ORDERED: Carvedilol 3.125 MG TAB PO SCH (14:00)
[2018-02-23] MEDS: Carvedilol 3.125 MG TAB PO SCH (17:04)
[2018-02-23] MEDS ORDERED: Communication Order-Pharmacy FS SCH (20:45)
[2018-02-23] MEDS: Temazepam 15 MG CAP PO PRN (23:59)
[2018-02-24 05:04] LABS: Platelet Count 174 thou/uL (130-400)
[2018-02-24 05:19] LABS: Anion Gap 10 mmol/L (10-20); BUN (Urea Nitrogen) 15 mg/dL (8.4-25.7); Calc. Creatinine Clearance 133 mL/min (70-130); Calcium 9.5 mg/dL (7.8-10.44); Carbon Dioxide 32 mmol/L (23-31); Chloride 96 mmol/L (98-107); Estimated GFR-MDRD Greater than 90; Glucose 99 mg/dL (80-115); Magnesium 1.3 mg/dL (1.6-2.6); Potassium 3.8 mmol/L (3.5-5.1); Sodium 134 mmol/L (136-145)
[2018-02-24] MEDS: Metolazone 5 MG TAB PO SCH (06:19)
[2018-02-24] MEDS: Famotidine 20 MG TAB PO SCH ×2 (06:19→20:51)
[2018-02-24] MEDS: Digoxin 0.125 MG TAB PO SCH (06:19)
[2018-02-24] MEDS: Carvedilol 3.125 MG TAB PO SCH ×2 (06:20→21:00)
[2018-02-24] MEDS: Cyanocobalamin (Vitamin B-12) 1,000 MCG TAB PO SCH (06:21)
[2018-02-24] MEDS: Multivitamin W/ Minerals 1 TAB PO SCH (06:22)
[2018-02-24] MEDS: Aspirin 81 mg Enteric Coated Tablet PO SCH ×2 (06:22→09:37)
[2018-02-24] MEDS: Potassium Chloride 20 MEQ TAB PO SCH (06:22)
[2018-02-24] MEDS: Magnesium Oxide 400 MG TAB PO SCH ×2 (06:22→20:51)
[2018-02-24] MEDS: Ferrous Sulfate 325 MG TAB PO SCH (06:22)
[2018-02-24] MEDS: Allopurinol 100 MG TAB PO SCH (06:22)
[2018-02-24] MEDS ORDERED: Nitroglycerin 100MG/250ML BOT 250 ML ONE (06:40)
[2018-02-24] MEDS ORDERED: Heparin 10,000 UNITS/1 ML VIAL ONE (06:40)
[2018-02-24] MEDS ORDERED: Verapamil 5 MG/2 ML VIAL ONE (06:40)
[2018-02-24] MEDS ORDERED: Lidocaine 1% (PF) 30 ML VIAL ONE (06:40)
[2018-02-24] MEDS ORDERED: traMADol HCl 50 MG TAB PO PRN (08:05)
[2018-02-24] MEDS ORDERED: Nitroglycerin 0.4 MG TAB (25 Tab Bottle) SL PRN (08:05)
[2018-02-24] MEDS ORDERED: Acetaminophen/Codeine 30-300mg Tablet PO PRN (08:05)
[2018-02-24] MEDS: Sacubitril 24.5 MG/Valsartan 25.5 MG TABLET PO SCH ×2 (09:37→20:50)
[2018-02-24 10:01] LABS: INR-International Normal Ratio 1.1; Prothrombin Time 14.7 SEC (12.0-14.7)
[2018-02-24] MEDS ORDERED: Iopamidol 370 76% 100 ML VIAL ONE (13:10)
[2018-02-24] MEDS: Furosemide 40 MG TAB PO SCH (13:33)
[2018-02-24 14:48] VITALS: BMI 27.6
[2018-02-24] MEDS: Acetaminophen 325 MG TAB PO PRN (15:55)
[2018-02-24] MEDS ORDERED: Warfarin Sodium 5 MG TAB PO SCH (17:00)
[2018-02-24] MEDS ORDERED: Digoxin 0.125 MG TAB PO SCH (18:00)
--- NOTE | 2018-02-24 18:02 | PDOC.PN ---
- Subjective Encounter Start Date: 02/24/18 Encounter Start Time: 10:00 Subjective: pt up in bed no complains - Objective Resuscitation Status: Resuscitation Status FULL:Full Resuscitation Vital Signs & Weight: Vital Signs (12 hours) Temp Pulse Resp BP Pulse Ox 02/24/18 15:22 99.4 F 106 H 16 146/69 H 96 02/24/18 11:07 97.8 F 90 19 123/77 98 02/24/18 08:15 97.8 F 103 H 19 128/73 97 02/24/18 08:12 97 02/24/18 06:19 87 Weight Admit Weight 239 lb 5 oz Weight 193 lb I&O: 02/23/18 02/24/18 02/25/18 06:59 06:59 06:59 Intake Total 1386 1473 Output Total 3900 1625 Balance -2514 -152 Result Diagrams: 02/24/18 04:53 02/24/18 04:53 Phys Exam - Physical Examination Neck: no nodes, no JVD, supple, full ROM Respiratory: no wheezing, no rales, no rhonchi, wheezing present, clear to auscultation bilateral Cardiovascular: RRR, no significant murmur, no rub, gallop, irregular Gastrointestinal: soft, non-tender, no distention, positive bowel sounds Musculoskeletal: edema present Dx/Plan (1) Acute systolic ACC/AHA stage C congestive heart failure Code(s): I50.21 - ACUTE SYSTOLIC (CONGESTIVE) HEART FAILURE Status: Acute (2) Acute respiratory failure with hypoxia Code(s): J96.01 - ACUTE RESPIRATORY FAILURE WITH HYPOXIA Status: Resolved (3) Hypomagnesemia Code(s): E83.42 - HYPOMAGNESEMIA Status: Acute (4) Obesity (BMI 30-39.9) Code(s): E66.9 - OBESITY, UNSPECIFIED Status: Chronic (5) Severe mitral regurgitation Code(s): I34.0 - NONRHEUMATIC MITRAL (VALVE) INSUFFICIENCY Status: Chronic (6) Atrial fibrillation Code(s): I48.91 - UNSPECIFIED ATRIAL FIBRILLATION Status: Acute Qualifiers: Atrial fibrillation type: chronic Qualified Code(s): I48.2 - Chronic atrial fibrillation Comment: variable rate, on digoxin and elliquis - Plan pt had cath no significant blockage, continue medical tx -: pt has been off dobutamine drip -: pt now on coumadin * . Review of Systems - Review of Systems Respiratory: negative: Cough, Dry, Shortness of Breath, Hemoptysis, SOB with Excertion, Pleuritic Pain, Sputum, Wheezing Cardiovascular: negative: chest pain, palpitations, orthopnea, paroxysmal nocturnal dyspnea, edema, light headedness, other Gastrointestinal: negative: Nausea, Vomiting, Abdominal Pain, Diarrhea, Constipation, Melena, Hematochezia, Other - Medications/Allergies Allergies/Adverse Reactions: Allergies Allergy/AdvReac Type Severity Reaction Status Date / Time cucumber Allergy Verified 02/10/18 02:44 melon Allergy Verified 02/10/18 02:44 naproxen AdvReac Stomach Verified 09/22/16 23:08 Ache Medications: Current Medications Acetaminophen (Tylenol) 650 mg PO Q4H PRN PRN Reason: Headache/Fever/Mild Pain (1-3) Last Admin: 02/24/18 15:55 Dose: 650 mg Acetaminophen/Codeine Phosphate (Tylenol #3) 1 tab PO Q4H PRN PRN Reason: Mild Pain (1-3) Acetaminophen/Codeine Phosphate (Tylenol #3) 2 tab PO Q4H PRN PRN Reason: Moderate Pain (4-6) Allopurinol (Zyloprim) 100 mg PO DAILY [facility] Last Admin: 02/24/18 06:22 Dose: 100 mg Artificial Tears (Tears Naturale) 0 drop EA EYE PRN PRN PRN Reason: Dry Eyes Aspirin (Ecotrin) 81 mg PO DAILY [facility] Last Admin: 02/24/18 09:37 Dose: 81 mg Calcium Carbonate (Tums) 1,000 mg PO Q4H PRN PRN Reason: Heartburn or Indigestion Carvedilol (Coreg) 3.125 mg PO BID[facility] Cyanocobalamin (Vitamin B-12) 1,000 mcg PO DAILY [facility] Last Admin: 02/24/18 06:21 Dose: 1,000 mcg Digoxin (Lanoxin) 0.25 mg PO NOW [facility] Stop: 02/24/18 19:30 Digoxin (Lanoxin) 0.25 mg PO [facility] Famotidine (Pepcid) 20 mg PO BID [facility] Last Admin: 02/24/18 06:19 Dose: Not Given Ferrous Sulfate (Feosol) 325 mg PO DAILY [facility] Last Admin: 02/24/18 06:22 Dose: 325 mg Furosemide (Lasix) 40 mg PO 1200 [facility] Last Admin: 02/24/18 13:33 Dose: 40 mg Guaifenesin (Robitussin Sf) 200 mg PO Q4H PRN PRN Reason: Cough Hydralazine HCl (Apresoline) 10 mg SLOW IVP Q4H PRN PRN Reason: Systolic BP > 180 Iron/Minerals/Multivitamins (Theragran M) 1 tab PO DAILY [facility] Last Admin: 02/24/18 06:22 Dose: 1 tab Loperamide HCl (Imodium) 2 mg PO PRN PRN PRN Reason: Diarrhea/Loose Stools Last Admin: 02/15/18 22:04 Dose: 2 mg Loratadine (Claritin) 10 mg PO DAILYPRN PRN PRN Reason: Sinus Symptoms Magnesium Hydroxide (Milk Of Magnesium) 30 ml PO DAILYPRN PRN PRN Reason: Constipation Magnesium Oxide (Magnesium Oxide) 400 mg PO BID [facility] Last Admin: 02/24/18 06:22 Dose: 400 mg Metolazone (Zaroxolyn) 5 mg PO 0830 [facility] Last Admin: 02/24/18 06:19 Dose: 5 mg Mineral Oil/White Petrolatum (Eucerin Cream) 0 gm TOP BIDPRN PRN PRN Reason: Dry Skin Nitroglycerin (Nitrostat) 0.4 mg SL Q5MIN PRN PRN Reason: Chest Pain Ondansetron HCl (Zofran Odt) 4 mg PO Q6H PRN PRN Reason: Nausea/Vomiting Ondansetron HCl (Zofran) 4 mg IVP Q6H PRN PRN Reason: Nausea/Vomiting Last Admin: 02/15/18 12:27 Dose: 4 mg Phenol (Chloraseptic [place] 180 Ml Bot) 0 ml PO PRN PRN PRN Reason: Sore Throat Potassium Chloride (K-Dur) 40 meq PO QAM-WM [facility] Last Admin: 02/24/18 06:22 Dose: 40 meq Sacubitril/Valsartan (Entresto 24.5 Mg-25.5 Mg Tablet) 1 tab PO BID [facility] Last Admin: 02/24/18 09:37 Dose: 1 tab Senna (Senokot) 2 tab PO HSPRN PRN PRN Reason: Constipation Sodium Chloride (Flush - Normal Saline) 10 ml IVF Q12H PRN PRN Reason: Saline Flush Last Admin: 02/16/18 23:10 Dose: 10 ml Sodium Chloride (Flush - Normal Saline) 10 ml IVF PRN PRN PRN Reason: Saline Flush Last Admin: 02/22/18 05:15 Dose: 10 ml Sodium Chloride ([place] Nasal [place] 0.65%) 0 ml EA NARE QIDPRN PRN PRN Reason: Nasal Congestion Temazepam (Restoril) 15 mg PO HS PRN PRN Reason: Insomnia Last Admin: 02/23/18 23:59 Dose: 15 mg Thiamine HCl (Thiamine) 100 mg PO DAILY [facility] Last Admin: 02/24/18 06:21 Dose: 100 mg Tramadol HCl (Ultram) 50 mg PO Q6H PRN PRN Reason: Moderate Pain (4-6) Warfarin Sodium (Coumadin) 5 mg PO 1700 [facility] Last Admin: 02/24/18 17:41 Dose: 5 mg
--- NOTE | 2018-02-24 23:04 | CON ---
ELECTROPHYSIOLOGY CONSULTATION REPORT DATE OF CONSULTATION: 02/24/2018 REFERRING PHYSICIAN: Eda Chow M.D. I am seeing Mr. Luna at our [facility] as an electrophysiology [place] consultant. His problems are: 1. New onset of CHF and newly found nonischemic cardiomyopathy. A. 2D echo from 02/10/2018, 15 to 20% severe mitral regurgitation, moderate to severe tricuspid regurgitation, mild left atrial dilation. B. Left heart catheterization from 02/10/2018 shows mild single vessel coronary artery disease, LVEF less than 50%. 2. History of ETOH abuse. 3. Risk factors include hypertension and hyperlipidemia. 4. History of anemia and diverticulitis in the past. ALLERGIES: NAPROXEN. MEDICATIONS AT HOME: Included vitamin B12, iron tablets, multivitamin, thiamine. SUBJECTIVE: Mr. Luna is here due to progressive dyspnea which has been going on for at least 10-day prior to admission. He has been also noticing lower extremity edema and mild orthopnea. He denies chest pains. No fever, chills, or cough. No stroke-like symptoms. He actually denies palpitations. Rest of the 12-point review of systems otherwise unremarkable. PAST MEDICAL HISTORY: As above. Patient denies prior history of heart disease or heart attacks. No prior history of arrhythmias either. SOCIAL HISTORY: Patient is a with no children. He has no tobacco abuse, stopped drinking about 6 weeks ago. Prior to that, he was a more heavy drinker. He is retired. OBJECTIVE DATA: VITAL SIGNS: Blood pressure is 122/77, 119, respirations 19, temperature 97.8 degrees Fahrenheit. GENERAL: He is alert and oriented man, in no apparent distress. NECK: Supple. Jugular veins still distended. Hepatojugular reflux is positive. CHEST: Coarse without crackles. CARDIAC: Heart sounds are irregularly irregular. variable. No murmur or gallop. ABDOMEN: Benign. Bowel sounds positive. EXTREMITIES: Lower extremity without edema, clubbing or cyanosis. Pulses are adequate. NEUROLOGIC: Patient is nonfocal. MUSCULOSKELETAL: Without joint swelling or deformities. SKIN: Without rash. DATABASE: EKGs reviewed. Initial EKG reveal atrial fibrillation with rates of 129 beats per minute, narrow QRS, nonspecific ST-T changes are seen. Subsequent EKGs reveal atrial fibrillation, short, up to 10 beats nonsustained wide complex arrhythmia around is seen. LABORATORY DATA: White cell count 6.9, hemoglobin today 13, platelet count is 143. INR 1.1. Sodium 138, potassium 3.4, BUN is 12, creatinine 0.71. Magnesium is 1.4. Chest x-ray on 02/19/2018, shows prominent cardiac silhouette and pulmonary vascular congestion. ASSESSMENT AND PLAN: Mr. Luna is a 62-year-old man with a history of alcohol abuse who is presenting with a newly found fluid overload/nonischemic cardiomyopathy in the setting of atrial fibrillation with rapid ventricular rates. We discussed the mechanism of atrial fibrillation association of ETOH abuse and also with heart failure and cardiomyopathy. Atrial fibrillation is possibly a causative factor for his heart failure with a rate-related cardiomyopathy and consequently the cardiomyopathy process also increases his chance to sustain atrial fibrillation. I agree with the efforts for rate control as already initiated. After complete resolution of fluid overload, he may be a candidate for cardioversion. Unfortunately, recurrence atrial fibrillation is likely and he could be considered for rhythm controlling medication, but the choices are limited. Amiodarone could be a consideration. Residential, he may benefit from ablation therapy if above fails and atrial fibrillation symptoms recur. Alternatively biv pacing and AV eladia ablation may need to be considered prior to the ususal 3 months on medical therapy. His cardiomyopathy and nonsustained ventricular tachycardia expose him to further more prolonged malignant ventricular arrhythmias. At this point, I would advise medical therapy and possible LifeVest to be worn. In 3 months, if LVEF does not improve, he may well be a candidate for BIVICD implantation and subsequent AV eladia ablation. CHADS-VASc score is 2 with hypertension and CHF likely benefit from anticoagulation, albeit this gentleman is likely higher risk for bleeding. Eliquis could be a consideration at full dose. History of ETOH abuse. Patient quit. I reinforced need for cessation. MTDD
[2018-02-25] MEDS: Acetaminophen/Codeine 30-300mg Tablet PO PRN ×2 (02:55→14:01)
[2018-02-25 06:21] LABS: Anion Gap 13 mmol/L (10-20); BUN (Urea Nitrogen) 17 mg/dL (8.4-25.7); Calc. Creatinine Clearance 137 mL/min (70-130); Carbon Dioxide 28 mmol/L (23-31); Chloride 97 mmol/L (98-107); Estimated GFR-MDRD Greater than 90; Glucose 148 mg/dL (80-115); Magnesium 1.3 mg/dL (1.6-2.6); Potassium 3.8 mmol/L (3.5-5.1); Sodium 134 mmol/L (136-145)
[2018-02-25] MEDS ORDERED: Magnesium Sulfate 4 GM in Sodium Chloride 0.9% 250 ML 250 ML IVPB SCH (07:45)
[2018-02-25] MEDS: Multivitamin W/ Minerals 1 TAB PO SCH (08:46)
[2018-02-25] MEDS: Sacubitril 24.5 MG/Valsartan 25.5 MG TABLET PO SCH ×2 (08:46→21:08)
[2018-02-25] MEDS: Allopurinol 100 MG TAB PO SCH (08:46)
[2018-02-25] MEDS: Famotidine 20 MG TAB PO SCH ×2 (08:46→21:09)
[2018-02-25] MEDS: Cyanocobalamin (Vitamin B-12) 1,000 MCG TAB PO SCH (08:47)
[2018-02-25] MEDS: Digoxin 0.125 MG TAB PO SCH (08:47)
[2018-02-25] MEDS: Aspirin 81 mg Enteric Coated Tablet PO SCH (08:47)
[2018-02-25] MEDS: Metolazone 5 MG TAB PO SCH (08:47)
[2018-02-25] MEDS: Potassium Chloride 20 MEQ TAB PO SCH (08:48)
[2018-02-25] MEDS: Carvedilol 3.125 MG TAB PO SCH ×2 (08:48→17:58)
[2018-02-25] MEDS: Ferrous Sulfate 325 MG TAB PO SCH (08:48)
[2018-02-25] MEDS: Magnesium Oxide 400 MG TAB PO SCH ×2 (08:48→21:08)
[2018-02-25] MEDS ORDERED: Digoxin 0.125 MG TAB PO SCH (09:00)
[2018-02-25] MEDS ORDERED: Enoxaparin Sodium 100 MG/ML SYRINGE SC SCH ×3 (12:15→21:00)
[2018-02-25] MEDS: Furosemide 40 MG TAB PO SCH (14:02)
--- NOTE | 2018-02-25 15:11 | PDOC.CTH ---
Cardiology Progress Note - Subjective EP progress note: Patient seen and evaluated. No new cardiac issues. Remains in AF overnight. - Objective Vital Signs Temp Pulse Resp BP Pulse Ox 02/25/18 11:12 98 F 94 16 104/63 02/25/18 08:47 111 H 02/25/18 07:17 97.6 F 88 13 107/64 02/25/18 03:40 98.0 F 99 17 100/66 96 Admit Weight 239 lb 5 oz Weight 195 lb 02/24/18 02/25/18 02/26/18 06:59 06:59 06:59 Intake Total 1473 920 Output Total 1625 550 Balance -152 370 - Physical Examination General/Neuro: alert & oriented x3, NAD Neck: carotid US brisk, no JVD present Lungs: CTA, unlabored respirations Heart: PMI normal Abdomen: NT/ND, soft - Telemetry Telemetry Rhythm: A fib - Labs Result Diagrams: 02/24/18 04:53 02/25/18 05:13 Troponin/CKMB CK-MB (CK-2) 6.6 ng/mL (0-6.6) 02/10/18 03:58 Troponin I 0.018 ng/mL (< 0.028) 02/10/18 03:58 - Assessment/Plan 1. Atrial fibrillation, mostly CVR (80-110). Consider CARO/CV once medically stable from HF perspective. Rate control with digoxin for now. If rate control proves difficult, can consider amiodarone or ultimately AVJ and Bi-V device as he is a poor ablation candidate. Risk of recurrence is high and he has limited antiarhythmic drug options. 2. CHADS2-VASC: 2 HTN and HF. OAC is indicated. Higher risk for bleeding with ETOH but he has reportedly quit. Eliquis can be considered. Currently on therapeutic Lovenox 3. Cardiomyopathy, newly diagnosed. Possibly tachycardia mediated. Medical management for now with LifeVest at [place]. Recheck in 3 months to determine candidacy for ICD
--- NOTE | 2018-02-25 15:57 | PDOC.CTH ---
<Miley Segura - Last Filed: 02/25/18 16:30> Cardiology Progress Note - Subjective The pt seen and examined. No overnight events. No cardiac complaints. - Objective Vital Signs Temp Pulse Pulse Pulse Resp BP BP 02/25/18 13:18 131 H 93 96/70 90/60 02/25/18 11:12 98 F 94 16 02/25/18 08:47 111 H 02/25/18 07:17 97.6 F 88 13 BP 02/25/18 13:18 02/25/18 11:12 104/63 02/25/18 08:47 02/25/18 07:17 107/64 Admit Weight 239 lb 5 oz Weight 195 lb 02/24/18 02/25/18 02/26/18 06:59 06:59 06:59 Intake Total 1473 920 Output Total 1625 550 Balance -152 370 - Physical Examination General/Neuro: alert & oriented x3 Neck: no JVD present Lungs: other: (diminished at bases) Heart: other: (irregular) Abdomen: soft Extremities: other: (3-4+pitting BLE edema) - Telemetry Telemetry Rhythm: AFib - Labs Result Diagrams: 02/24/18 04:53 02/25/18 05:13 Troponin/CKMB CK-MB (CK-2) 6.6 ng/mL (0-6.6) 02/10/18 03:58 Troponin I 0.018 ng/mL (< 0.028) 02/10/18 03:58 - Assessment/Plan 1. Aute on Chronic systolic CHF - Outpt decreased with Dobutamine 5mg/kg/min and Lasix 40mg IV BID and Metolazone. On Fluid restriction 1500ml/24hrs. 2. Alcohol induced CMY - S/p LHC with normal coronary arteries. Medical management for now with LifeVest at [place]. Recheck in 3 months to determine candidacy for ICD 3, Afib - HR has been 130-150s today. Will decrease dobutamine to 2.5mg/kg/min and start Coreg 3.125mg 1/2 tab BID. On Lovenox BID with Coumadin. When his BP is more stable, will start BBlocker. 4. Hyponatremia - improved 5. Severe MR - will evaluate at the time of cardiac cath. If the EF improves and the heart size decreases the MR may improve. If not he may need some sort of intervention. 6. ETOH abuse - ETOH cessation education given to the pt. 7. Hypokalemia - stable MAR reviewed. * plan for CARO and DCCV at 0830 on 02/26/[address] Chow. Review of Systems - Review of Systems Constitutional: reports: no symptoms reported EENTM: reports: no symptoms reported Respiratory: reports: no symptoms reported Cardiac (ROS): reports: no symptoms reported ABD/GI: reports: no symptoms reported <Keo Chow - Last Filed: 02/26/18 08:58> Cardiology Progress Note - Objective Vital Signs Temp Pulse Resp BP Pulse Ox 02/26/18 04:00 98 F 60 16 122/74 95 Admit Weight 239 lb 5 oz Weight 209 lb 7.026 oz 02/25/18 02/26/18 02/27/18 06:59 06:59 06:59 Intake Total 920 236 Output Total 550 1200 Balance 370 -964 - Labs Result Diagrams: 02/26/18 04:20 02/26/18 04:20 Troponin/CKMB CK-MB (CK-2) 6.6 ng/mL (0-6.6) 02/10/18 03:58 Troponin I 0.018 ng/mL (< 0.028) 02/10/18 03:58 - Assessment/Plan Pt. seen and eval. by me. I agree with the A/P by the PUMP INSTALLER. Pt. seen by EP. Appreciate the input. No c/o's decreased diuresis after stopping IV dobutamine and IV lasix. Chest clear. Irreg./irreg. Mild edema of lower legs. Discussed CARO and early cardioversion of Afib. to improve cardiac output with the severe decrease in his LV function. Continue Coreg,Entresto, po diuretics.
[2018-02-25] MEDS ORDERED: Eucerin (Mineral Oil/Petrolatum,White) 30 gm Jar TOP PRN (16:16)
[2018-02-25] MEDS ORDERED: Amiodarone HCl 150 MG in Dextrose 5% in Water 100 ML IVPB SCH (16:30)
[2018-02-25] MEDS ORDERED: Amiodarone HCl 450 MG, Admixture Fee 1 EACH in Dextrose 5% in Water 250 ML IVPB SCH (18:00)
[2018-02-25] MEDS: Warfarin Sodium 5 MG TAB PO SCH (18:01)
[2018-02-25 19:17] LABS: Cardiac Risk 4.2 (Less than 4.5)
[2018-02-25] MEDS: Senokot S 8.6-50 MG TAB PO SCH (21:08)
[2018-02-25] MEDS: DOPamine 400 MG/D5W 250 ML 250 ML IVPB SCH (22:15)
[2018-02-25] MEDS: Hydrocortisone 1% Cream 30 GM TUBE TOP SCH (22:16)
--- NOTE | 2018-02-25 22:18 | PDOC.PN ---
- Subjective Encounter Start Date: 02/25/18 Encounter Start Time: 13:30 Patient seen and examined for CHF exacerbation. SOB improving. No new complaints. No overnight events - Objective Resuscitation Status: Resuscitation Status FULL:Full Resuscitation MAR Reviewed: Yes Vital Signs & Weight: Vital Signs (12 hours) Temp Pulse Pulse Pulse Resp BP BP 02/25/18 16:15 97.9 F 67 16 02/25/18 13:18 131 H 93 96/70 90/60 02/25/18 11:12 98 F 94 16 BP Pulse Ox 02/25/18 16:15 111/69 96 02/25/18 13:18 02/25/18 11:12 104/63 Weight Admit Weight 239 lb 5 oz Weight 195 lb I&O: 02/24/18 02/25/18 02/26/18 06:59 06:59 06:59 Intake Total 1473 920 Output Total 1625 550 Balance -152 370 Result Diagrams: 02/24/18 04:53 02/25/18 05:13 EKG Reviewed by me: Yes (Tele Afib) Phys Exam - Physical Examination Constitutional: NAD Respiratory: no wheezing, no rhonchi Cardiovascular: no rub, irregular Gastrointestinal: soft, non-tender, positive bowel sounds Musculoskeletal: edema present Neurological: moves all 4 limbs Dx/Plan - Plan DVT proph w/lovenox, DVT proph w/SCDs IMPRESSION/PLAN: 1. Acute on chronic systolic HF / Nonischemic CM Off Dobutamine drip Cont PO Lasix AM labs Cont BB Not on ACEI/ARB/Spironolactone due to low BP 2. Afib with RVR Cont Anticoag CARO-CV planned 3. Hypokalemia / Hyponatremia/Hypomagnesemia 4 gm IVPB Magnessium Cont PO KCL AM labs 4. HTN Cont current meds 5. Chronic Alcoholism / Other issues per previous notes Review of Systems - Review of Systems Constitutional: negative: fever, chills, sweats, weakness, malaise, other Cardiovascular: edema. negative: chest pain, palpitations, orthopnea, paroxysmal nocturnal dyspnea, light headedness, other - Medications/Allergies Allergies/Adverse Reactions: Allergies Allergy/AdvReac Type Severity Reaction Status Date / Time cucumber Allergy Verified 02/10/18 02:44 melon Allergy Verified 02/10/18 02:44 naproxen AdvReac Stomach Verified 09/22/16 23:08 Ache Medications: Current Medications Acetaminophen (Tylenol) 650 mg PO Q4H PRN PRN Reason: Headache/Fever/Mild Pain (1-3) Last Admin: 02/24/18 15:55 Dose: 650 mg Acetaminophen/Codeine Phosphate (Tylenol #3) 1 tab PO Q4H PRN PRN Reason: Mild Pain (1-3) Acetaminophen/Codeine Phosphate (Tylenol #3) 2 tab PO Q4H PRN PRN Reason: Moderate Pain (4-6) Last Admin: 02/25/18 14:01 Dose: 2 tab Allopurinol (Zyloprim) 100 mg PO DAILY [facility] Last Admin: 02/25/18 08:46 Dose: 100 mg Artificial Tears (Tears Naturale) 0 drop EA EYE PRN PRN PRN Reason: Dry Eyes Aspirin (Ecotrin) 81 mg PO DAILY [facility] Last Admin: 02/25/18 08:47 Dose: 81 mg Calcium Carbonate (Tums) 1,000 mg PO Q4H PRN PRN Reason: Heartburn or Indigestion Carvedilol (Coreg) 3.125 mg PO BID-[facility] Last Admin: 02/25/18 17:58 Dose: 3.125 mg Cyanocobalamin (Vitamin B-12) 1,000 mcg PO DAILY [facility] Last Admin: 02/25/18 08:47 Dose: 1,000 mcg Digoxin (Lanoxin) 0.25 mg PO QAM [facility] Last Admin: 02/25/18 08:47 Dose: 0.25 mg Enoxaparin Sodium (Lovenox) 100 mg SC 0900,2100 [facility] Last Admin: 02/25/18 21:08 Dose: 100 mg Famotidine (Pepcid) 20 mg PO BID [facility] Last Admin: 02/25/18 21:09 Dose: Not Given Ferrous Sulfate (Feosol) 325 mg PO DAILY [facility] Last Admin: 02/25/18 08:48 Dose: 325 mg Furosemide (Lasix) 40 mg PO 1200 [facility] Last Admin: 02/25/18 14:02 Dose: Not Given Guaifenesin (Robitussin Sf) 200 mg PO Q4H PRN PRN Reason: Cough Hydralazine HCl (Apresoline) 10 mg SLOW IVP Q4H PRN PRN Reason: Systolic BP > 180 Hydrocortisone/Aloe (Hydrocortisone 1% Cream) 0 gm TOP BID [place] Amiodarone HCl 450 mg/Miscellaneous Medication 1 each/ Dextrose/Water 259 mls @ 0 mls/hr IVPB INF [facility]; Protocol Dopamine HCl/Dextrose (Dopamine/D5w) 250 mls @ 0 mls/hr IVPB INF [facility] Iron/Minerals/Multivitamins (Theragran M) 1 tab PO DAILY [facility] Last Admin: 02/25/18 08:46 Dose: 1 tab Loperamide HCl (Imodium) 2 mg PO PRN PRN PRN Reason: Diarrhea/Loose Stools Last Admin: 02/15/18 22:04 Dose: 2 mg Loratadine (Claritin) 10 mg PO DAILYPRN PRN PRN Reason: Sinus Symptoms Magnesium Hydroxide (Milk Of Magnesium) 30 ml PO DAILYPRN PRN PRN Reason: Constipation Magnesium Oxide (Magnesium Oxide) 400 mg PO BID [facility] Last Admin: 02/25/18 21:08 Dose: 400 mg Metolazone (Zaroxolyn) 5 mg PO 0830 [facility] Last Admin: 02/25/18 08:47 Dose: 5 mg Mineral Oil/White Petrolatum (Eucerin Cream) 0 gm TOP BIDPRN PRN PRN Reason: Dry Skin Mineral Oil/White Petrolatum (Eucerin Cream) 0 gm TOP BIDPRN PRN PRN Reason: Dry Skin Nitroglycerin (Nitrostat) 0.4 mg SL Q5MIN PRN PRN Reason: Chest Pain Ondansetron HCl (Zofran Odt) 4 mg PO Q6H PRN PRN Reason: Nausea/Vomiting Ondansetron HCl (Zofran) 4 mg IVP Q6H PRN PRN Reason: Nausea/Vomiting Last Admin: 02/15/18 12:27 Dose: 4 mg Phenol (Chloraseptic [place] 180 Ml Bot) 0 ml PO PRN PRN PRN Reason: Sore Throat Polyethylene Glycol (Miralax) 17 gm PO DAILY [facility] Potassium Chloride (K-Dur) 40 meq PO QAM-WM [facility] Last Admin: 02/25/18 08:48 Dose: 40 meq Sacubitril/Valsartan (Entresto 24.5 Mg-25.5 Mg Tablet) 1 tab PO BID [facility] Last Admin: 02/25/18 21:08 Dose: 1 tab Senna (Senokot) 2 tab PO HSPRN PRN PRN Reason: Constipation Senna/Docusate Sodium (Senokot S) 2 tab PO BID [facility] Last Admin: 02/25/18 21:08 Dose: 2 tab Sodium Chloride (Flush - Normal Saline) 10 ml IVF Q12H PRN PRN Reason: Saline Flush Last Admin: 02/25/18 08:46 Dose: 10 ml Sodium Chloride (Flush - Normal Saline) 10 ml IVF PRN PRN PRN Reason: Saline Flush Last Admin: 02/22/18 05:15 Dose: 10 ml Sodium Chloride ([place] Nasal [place] 0.65%) 0 ml EA NARE QIDPRN PRN PRN Reason: Nasal Congestion Temazepam (Restoril) 15 mg PO HS PRN PRN Reason: Insomnia Last Admin: 02/23/18 23:59 Dose: 15 mg Thiamine HCl (Thiamine) 100 mg PO DAILY [facility] Last Admin: 02/25/18 08:46 Dose: 100 mg Tramadol HCl (Ultram) 50 mg PO Q6H PRN PRN Reason: Moderate Pain (4-6) Warfarin Sodium (Coumadin) 5 mg PO 1700 [facility] Last Admin: 02/25/18 18:01 Dose: 5 mg
[2018-02-26 04:45] LABS: Hemoglobin 12.6 g/dL (14.0-18.0); Platelet Count 198 thou/uL (130-400)
[2018-02-26 05:06] LABS: Digoxin 0.19 ng/mL (0.8-2.0)
[2018-02-26 05:15] LABS: Anion Gap 11 mmol/L (10-20); BUN (Urea Nitrogen) 17 mg/dL (8.4-25.7); Calc. Creatinine Clearance 157 mL/min (70-130); Calcium 9.1 mg/dL (7.8-10.44); Carbon Dioxide 27 mmol/L (23-31); Chloride 98 mmol/L (98-107); Estimated GFR-MDRD Greater than 90; Glucose 112 mg/dL (80-115); Magnesium 1.6 mg/dL (1.6-2.6); Potassium 3.3 mmol/L (3.5-5.1); Sodium 133 mmol/L (136-145)
--- NOTE | 2018-02-26 07:35 | PRG ---
DATE OF SERVICE: 02/25/2018 SUBJECTIVE: The patient was seen and noted with the following vital signs. PHYSICAL EXAMINATION: VITAL SIGNS: Afebrile with temperature 98, pulse 93, respiratory rate of 16, O2 sat of 93% with bloo d pressure of 90/60. HEENT: Unremarkable. CARDIOVASCULAR SYSTEM: First and second heart sounds were heard. RESPIRATORY SYSTEM: Clear to auscultation. DIGESTIVE SYSTEM: Revealed a benign abdomen with positive bowel sounds. EXTREMITIES: Some peripheral edema. SKIN: No lesion or gross rash. IMPRESSION: 1. Hypervolemia. 2. Cardiac failure resulting from hypervolemia above. PLAN: We will continue to monitor this patient closely and .
[2018-02-26 08:01] LABS: INR-International Normal Ratio 1.3; Prothrombin Time 15.9 SEC (12.0-14.7)
[2018-02-26] MEDS ORDERED: Potassium Chloride 20 MEQ TAB PO SCH (08:45)
[2018-02-26] MEDS ORDERED: Ketamine 50 MG/ML VIAL ONE (08:46)
[2018-02-26] MEDS ORDERED: Amiodarone 200 MG TAB PO SCH ×5 (10:00→15:00)
--- NOTE | 2018-02-26 10:59 | PRG ---
DATE OF SERVICE: 02/26/2018 SUBJECTIVE: Mr. Luna seems to be doing well today, somewhat improved breathing. He is reporting no significant orthopnea at this time. OBJECTIVE: VITAL SIGNS: Blood pressure is 95/63, heart rate is 95, respiration is 18, temperature 98.1 degrees Fahrenheit. The ins and outs reveal positive 370 mL over the last 24 hours. GENERAL: He is alert and oriented man, in no apparent distress. NECK: Supple. Jugular veins not distended. Hepatojugular reflux is positive. CHEST: Coarse, no crackles. CARDIOVASCULAR: Heart sounds are irregularly irregular. S1, S2, is variable. No murmur, rub or gallop. ABDOMEN: Benign. Bowel sounds positive. EXTREMITIES: Lower extremities without edema, clubbing or cyanosis. DATABASE: EKGs reviewed revealing continued atrial fibrillation with somewhat improving rate control, QTc not markedly prolonged. LABORATORY DATA: Hemoglobin is 12.6. Sodium 133, potassium 3.3, BUN is 17, creatinine is 0.61. AST and ALT are 44 and 59 on the date of admission. ASSESSMENT AND PLAN: Mr. Luna is a 62-year-old man with a newly found congestive heart failure and persistent atrial fibrillation with rapid rates. He has likely nonischemic cardiomyopathy with a severely reduced left ventricular ejection fraction. At this point, he has a difficult time to improve his volume status with aggressive diuresis to the point was even necessary. Rate control . My plan would be, 1. I agree with efforts for continued rate control, possible rhythm control in the future with amiodarone. As we discussed with Dr. Chow, the patient will be started on oral anticoagulants with warfarin, although Eliquis could be also considered if financially feasible. He will continue Lovenox for anticoagulation in the meantime until INR hits 2. Dr. Chow is planning a CARO guided cardioversion, which will hopefully achieve necessary rate control and rhythm control to make optimal conditions for his cardiomyopathy to improve. After adequate volume status and rhythm control achieved, he likely will be discharged on LifeVest. 2. While on amiodarone, close monitoring of liver function and thyroid level as well as pulmonary function will be necessary. 3. I warned him about incapatability of oral anticoagulant, amiodarone, and alcohol abuse and he is to not resume alcohol abuse in the future. We will follow with you. DONNA
[2018-02-26] MEDS: Multivitamin W/ Minerals 1 TAB PO SCH (11:16)
[2018-02-26] MEDS: Ferrous Sulfate 325 MG TAB PO SCH (11:17)
[2018-02-26] MEDS: Furosemide 40 MG TAB PO SCH (11:17)
[2018-02-26] MEDS: Senokot S 8.6-50 MG TAB PO SCH ×2 (11:18→21:07)
[2018-02-26] MEDS: Cyanocobalamin (Vitamin B-12) 1,000 MCG TAB PO SCH (11:18)
[2018-02-26] MEDS: Allopurinol 100 MG TAB PO SCH (11:18)
[2018-02-26] MEDS: Metolazone 5 MG TAB PO SCH (11:18)
[2018-02-26] MEDS: Potassium Chloride 20 MEQ TAB PO SCH (11:18)
[2018-02-26] MEDS: Magnesium Oxide 400 MG TAB PO SCH ×2 (11:19→21:08)
[2018-02-26] MEDS: Aspirin 81 mg Enteric Coated Tablet PO SCH (11:19)
[2018-02-26] MEDS: Carvedilol 3.125 MG TAB PO SCH ×2 (11:19→17:57)
[2018-02-26] MEDS: Hydrocortisone 1% Cream 30 GM TUBE TOP SCH ×2 (11:20→21:08)
[2018-02-26] MEDS: Famotidine 20 MG TAB PO SCH ×2 (11:20→21:08)
[2018-02-26] MEDS: Sacubitril 24.5 MG/Valsartan 25.5 MG TABLET PO SCH ×2 (11:21→21:07)
[2018-02-26] MEDS: Polyethylene Glycol 3350 17 GM Packet PO SCH (11:21)
[2018-02-26] MEDS: Digoxin 0.125 MG TAB PO SCH (11:22)
--- NOTE | 2018-02-26 14:27 | PDOC.PN ---
- Subjective Encounter Start Date: 02/26/18 Encounter Start Time: 12:15 Subjective: pt up in bed no complains - Objective Resuscitation Status: Resuscitation Status FULL:Full Resuscitation Vital Signs & Weight: Vital Signs (12 hours) Temp Pulse Resp BP BP Pulse Ox 02/26/18 12:30 97.9 F 104 H 18 118/73 95 02/26/18 11:22 94 02/26/18 08:35 98.1 F 95 18 95/63 94 L 02/26/18 04:00 98 F 60 16 122/74 95 Weight Admit Weight 239 lb 5 oz Weight 209 lb 7.026 oz I&O: 02/25/18 02/26/18 02/27/18 06:59 06:59 06:59 Intake Total 920 236 Output Total 550 1200 Balance 370 -964 Result Diagrams: 02/26/18 04:20 02/26/18 04:20 Phys Exam - Physical Examination Neck: no nodes, no JVD, supple, full ROM Respiratory: no wheezing, no rales, no rhonchi, wheezing present, clear to auscultation bilateral Cardiovascular: RRR, no significant murmur, no rub, gallop, irregular Gastrointestinal: soft, non-tender, no distention, positive bowel sounds Dx/Plan (1) Acute systolic ACC/AHA stage C congestive heart failure Code(s): I50.21 - ACUTE SYSTOLIC (CONGESTIVE) HEART FAILURE Status: Acute (2) Acute respiratory failure with hypoxia Code(s): J96.01 - ACUTE RESPIRATORY FAILURE WITH HYPOXIA Status: Resolved (3) Hypomagnesemia Code(s): E83.42 - HYPOMAGNESEMIA Status: Acute (4) Obesity (BMI 30-39.9) Code(s): E66.9 - OBESITY, UNSPECIFIED Status: Chronic (5) Severe mitral regurgitation Code(s): I34.0 - NONRHEUMATIC MITRAL (VALVE) INSUFFICIENCY Status: Chronic (6) Atrial fibrillation Code(s): I48.91 - UNSPECIFIED ATRIAL FIBRILLATION Status: Acute Qualifiers: Atrial fibrillation type: chronic Qualified Code(s): I48.2 - Chronic atrial fibrillation Comment: variable rate, on digoxin and elliquis - Plan pt underwent CARO cardioversion -: will continue home meds -: possible to go home kimi if ok with cardio -: will replace K * . Review of Systems - Review of Systems Respiratory: negative: Cough, Dry, Shortness of Breath, Hemoptysis, SOB with Excertion, Pleuritic Pain, Sputum, Wheezing Cardiovascular: negative: chest pain, palpitations, orthopnea, paroxysmal nocturnal dyspnea, edema, light headedness, other Gastrointestinal: negative: Nausea, Vomiting, Abdominal Pain, Diarrhea, Constipation, Melena, Hematochezia, Other Genitourinary: negative: Dysuria, Frequency, Incontinence, Hematuria, Retention , Other - Medications/Allergies Allergies/Adverse Reactions: Allergies Allergy/AdvReac Type Severity Reaction Status Date / Time cucumber Allergy Verified 02/10/18 02:44 melon Allergy Verified 02/10/18 02:44 naproxen AdvReac Stomach Verified 09/22/16 23:08 Ache Medications: Current Medications Acetaminophen (Tylenol) 650 mg PO Q4H PRN PRN Reason: Headache/Fever/Mild Pain (1-3) Last Admin: 02/24/18 15:55 Dose: 650 mg Acetaminophen/Codeine Phosphate (Tylenol #3) 1 tab PO Q4H PRN PRN Reason: Mild Pain (1-3) Acetaminophen/Codeine Phosphate (Tylenol #3) 2 tab PO Q4H PRN PRN Reason: Moderate Pain (4-6) Last Admin: 02/25/18 14:01 Dose: 2 tab Allopurinol (Zyloprim) 100 mg PO DAILY [facility] Last Admin: 02/26/18 11:18 Dose: 100 mg Amiodarone HCl (Cordarone) 400 mg PO TID [facility] Artificial Tears (Tears Naturale) 0 drop EA EYE PRN PRN PRN Reason: Dry Eyes Aspirin (Ecotrin) 81 mg PO DAILY [facility] Last Admin: 02/26/18 11:19 Dose: 81 mg Calcium Carbonate (Tums) 1,000 mg PO Q4H PRN PRN Reason: Heartburn or Indigestion Carvedilol (Coreg) 3.125 mg PO BID-[facility] Last Admin: 02/26/18 11:19 Dose: 3.125 mg Cyanocobalamin (Vitamin B-12) 1,000 mcg PO DAILY [facility] Last Admin: 02/26/18 11:18 Dose: 1,000 mcg Digoxin (Lanoxin) [facility] [place] Last Admin: 02/26/18 11:22 Dose: 0.25 mg Enoxaparin Sodium (Lovenox) 100 mg SC 0900,2100 [facility] Last Admin: 02/25/18 21:08 Dose: 100 mg Famotidine (Pepcid) 20 mg PO BID [facility] Last Admin: 02/26/18 11:20 Dose: Not Given Ferrous Sulfate (Feosol) 325 mg PO DAILY [facility] Last Admin: 02/26/18 11:17 Dose: 325 mg Furosemide (Lasix) 40 mg PO 1200 [facility] Last Admin: 02/26/18 11:17 Dose: 40 mg Guaifenesin (Robitussin Sf) 200 mg PO Q4H PRN PRN Reason: Cough Hydralazine HCl (Apresoline) 10 mg SLOW IVP Q4H PRN PRN Reason: Systolic BP > 180 Hydrocortisone/Aloe (Hydrocortisone 1% Cream) 0 gm TOP BID [facility] Last Admin: 02/26/18 11:20 Dose: 1 inch Dopamine HCl/Dextrose (Dopamine/D5w) 250 mls @ 0 mls/hr IVPB INF [facility] Last Admin: 02/25/18 22:15 Dose: 250 mls Iron/Minerals/Multivitamins (Theragran M) 1 tab PO DAILY [facility] Last Admin: 02/26/18 11:16 Dose: 1 tab Loperamide HCl (Imodium) 2 mg PO PRN PRN PRN Reason: Diarrhea/Loose Stools Last Admin: 02/15/18 22:04 Dose: 2 mg Loratadine (Claritin) 10 mg PO DAILYPRN PRN PRN Reason: Sinus Symptoms Magnesium Hydroxide (Milk Of Magnesium) 30 ml PO DAILYPRN PRN PRN Reason: Constipation Magnesium Oxide (Magnesium Oxide) 400 mg PO BID [facility] Last Admin: 02/26/18 11:19 Dose: 400 mg Metolazone (Zaroxolyn) 5 mg PO 0830 [facility] Last Admin: 02/26/18 11:18 Dose: 5 mg Mineral Oil/White Petrolatum (Eucerin Cream) 0 gm TOP BIDPRN PRN PRN Reason: Dry Skin Mineral Oil/White Petrolatum (Eucerin Cream) 0 gm TOP BIDPRN PRN PRN Reason: Dry Skin Nitroglycerin (Nitrostat) 0.4 mg SL Q5MIN PRN PRN Reason: Chest Pain Ondansetron HCl (Zofran Odt) 4 mg PO Q6H PRN PRN Reason: Nausea/Vomiting Ondansetron HCl (Zofran) 4 mg IVP Q6H PRN PRN Reason: Nausea/Vomiting Last Admin: 02/15/18 12:27 Dose: 4 mg Phenol (Chloraseptic [place] 180 Ml Bot) 0 ml PO PRN PRN PRN Reason: Sore Throat Polyethylene Glycol (Miralax) 17 gm PO DAILY [facility] Last Admin: 02/26/18 11:21 Dose: 17 gm Potassium Chloride (K-Dur) 40 meq PO QAM-WM [facility] Last Admin: 02/26/18 11:18 Dose: 40 meq Sacubitril/Valsartan (Entresto 24.5 Mg-25.5 Mg Tablet) 1 tab PO BID [facility] Last Admin: 02/26/18 11:21 Dose: 1 tab Senna (Senokot) 2 tab PO HSPRN PRN PRN Reason: Constipation Senna/Docusate Sodium (Senokot S) 2 tab PO BID [facility] Last Admin: 02/26/18 11:18 Dose: 2 tab Sodium Chloride (Flush - Normal Saline) 10 ml IVF Q12H PRN PRN Reason: Saline Flush Last Admin: 02/25/18 08:46 Dose: 10 ml Sodium Chloride (Flush - Normal Saline) 10 ml IVF PRN PRN PRN Reason: Saline Flush Last Admin: 02/22/18 05:15 Dose: 10 ml Sodium Chloride ([place] Nasal [place] 0.65%) 0 ml EA NARE QIDPRN PRN PRN Reason: Nasal Congestion Temazepam (Restoril) 15 mg PO HS PRN PRN Reason: Insomnia Last Admin: 02/23/18 23:59 Dose: 15 mg Thiamine HCl (Thiamine) 100 mg PO DAILY [facility] Last Admin: 02/26/18 11:17 Dose: 100 mg Tramadol HCl (Ultram) 50 mg PO Q6H PRN PRN Reason: Moderate Pain (4-6) Warfarin Sodium (Coumadin) 5 mg PO 1700 [facility] Last Admin: 02/25/18 18:01 Dose: 5 mg
[2018-02-26] MEDS ORDERED: PHENYLEPHRINE-NS 100 MCG/ML 10 ML SYRINGE ONE (15:29)
[2018-02-26] MEDS ORDERED: PROPOFOL 200 MG/20 ML VIAL ONE (15:29)
[2018-02-26] MEDS: Amiodarone 200 MG TAB PO SCH ×2 (15:30→21:08)
[2018-02-26] MEDS: Warfarin Sodium 5 MG TAB PO SCH (18:15)
--- NOTE | 2018-02-26 20:49 | PRG ---
DATE OF SERVICE: 02/26/2018 SUBJECTIVE: The patient was seen and examined with no new complaint, noted with the following vital signs. OBJECTIVE: VITAL SIGNS: Afebrile with temperature 98.5, pulse 88, respiratory rate of 18, O2 saturation of 98% with blood pressure 104/63. HEENT: Unremarkable with moist oral mucosa. NECK: Supple. No conjunctival injection or icterus. CARDIOVASCULAR SYSTEM: First and second heart sounds were heard. RESPIRATORY SYSTEM: Clear to auscultation. DIGESTIVE SYSTEM: Revealed a benign abdomen. EXTREMITIES: No peripheral edema. SKIN: No new gross rash. LYMPHATICS: No peripheral lymphadenopathy. malnutrition. IMPRESSION: 1. Hypervolemia, on diuretics. 2. Cardiac failure. PLAN: 1. The patient seems to have been diuresed down more or less to his euvolemic state. We will begin to recommend de-escalation of diuresis. 2. Renally dose all medications. 3. Further management will be dependent on the clinical course.
[2018-02-26] MEDS: Apixaban 5 MG TAB PO SCH (21:07)
[2018-02-27] MEDS: DOPamine 400 MG/D5W 250 ML 250 ML IVPB SCH (00:42)
[2018-02-27] MEDS: Acetaminophen/Codeine 30-300mg Tablet PO PRN (02:55)
[2018-02-27 07:09] LABS: Chloride 98 mmol/L (98-107); Magnesium 1.4 mg/dL (1.6-2.6); Potassium 3.8 mmol/L (3.5-5.1); Sodium 134 mmol/L (136-145)
[2018-02-27 07:10] LABS: Glucose 114 mg/dL (80-115)
[2018-02-27 07:12] LABS: Anion Gap 7 mmol/L (10-20); Carbon Dioxide 33 mmol/L (23-31)
[2018-02-27 07:14] LABS: BUN (Urea Nitrogen) 19 mg/dL (8.4-25.7); Calc. Creatinine Clearance 145 mL/min (70-130); Estimated GFR-MDRD Greater than 90
[2018-02-27] MEDS ORDERED: Metolazone 5 MG TAB PO SCH ×2 (08:30→08:35)
[2018-02-27] MEDS ORDERED: Furosemide 40 MG TAB PO SCH ×2 (08:34→12:00)
--- NOTE | 2018-02-27 08:42 | PDOC.CTH ---
<Miley Segura - Last Filed: 02/27/18 08:38> Cardiology Progress Note - Subjective The pt seen and examined. No overnight events. No cardiac complaints. He stated he felt better after DCCV. - Objective Vital Signs Temp Pulse Resp BP Pulse Ox 02/27/18 07:33 97.7 F 79 14 110/70 96 02/27/18 04:00 97.7 F 84 20 90/65 97 Admit Weight 239 lb 5 oz Weight 201 lb 02/26/18 02/27/18 02/28/18 06:59 06:59 06:59 Intake Total 236 678 Output Total 1200 1540 Balance -994 862 - Physical Examination General/Neuro: alert & oriented x3 Neck: no JVD present Lungs: CTA Heart: RRR Abdomen: soft Extremities: other: (2+ pitting BLE edema) - Telemetry Telemetry Rhythm: SR 80s - Labs Result Diagrams: 02/26/18 04:20 02/27/18 06:44 Troponin/CKMB CK-MB (CK-2) 6.6 ng/mL (0-6.6) 02/10/18 03:58 Troponin I 0.018 ng/mL (< 0.028) 02/10/18 03:58 - Assessment/Plan 1. Aute on Chronic systolic CHF - EF 10-15% on 02/26/18 which was 15-20% on 12/21. On Entresto BID, Coreg, dopamine 25mg/kg/min and Lasix 40mg PO qd , and Metolazone 5 mg qd. On Fluid restriction 1500ml/24hrs. Possiblity he will be d/c home with [facility] 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 Medical management for now with [facility] at [place]. Recheck in 3 months to determine candidacy for ICD 3, Afib with S/p CARO and DCCV on 02/26/18 - Remains in SR since 02/26/18. On Amiodarone 400mg TID since 1500 on 02/26/18, Coreg, and Digoxin 0.25mg qd. Coumadin was d/naila and changed to Eliquis 5mg BID. 4. Hyponatremia - improved 5. MR - CARO on 02/26/18 showed mild-mod MR; cont. to monitor 6. ETOH abuse - ETOH cessation education given to the pt. 7. Hypokalemia - stable MAR reviewed. * Most likely the pt will d/c home with LifeVest with current medication. Review of Systems - Review of Systems Constitutional: reports: no symptoms reported EENTM: reports: no symptoms reported Respiratory: reports: no symptoms reported Cardiac (ROS): reports: no symptoms reported ABD/GI: reports: no symptoms reported : reports: no symptoms reported Musculoskeletal: reports: no symptoms reported <Keo Chow - Last Filed: 02/27/18 10:04> Cardiology Progress Note - Objective Vital Signs Temp Pulse Resp BP Pulse Ox 02/27/18 08:51 79 02/27/18 07:33 97.7 F 79 14 110/70 96 02/27/18 04:00 97.7 F 84 20 90/65 97 Admit Weight 239 lb 5 oz Weight 201 lb 02/26/18 02/27/18 02/28/18 06:59 06:59 06:59 Intake Total 236 678 Output Total 1200 1540 Balance -964 -862 - Labs Result Diagrams: 02/26/18 04:20 02/27/18 06:44 Troponin/CKMB CK-MB (CK-2) 6.6 ng/mL (0-6.6) 02/10/18 03:58 Troponin I 0.018 ng/mL (< 0.028) 02/10/18 03:58 - Assessment/Plan Pt. seen and eval. by me. i agree with the A/P by the [employer]. The cardiac cath indicated mild CAD. Not enough to cause the degree of CMY. 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 with RVR. We can not say for certain , this may be genetic or idiopathic. He continues to do well and is maintaining NSR. Continue amiodarone. 400mg tid for 1 week 200 mg tid for 2 weeks 200 mg bid until seen back in the office. If the EF does not improve then plan for an implantable AICD. I changed Coumadin to Eliquis due to the increased interaction with amiodarone. With the history of ETOH abuse he may have underlying hepatic insufficiency that may be a problem with coumadin. If he remains stable today then d/c tomorrow . He will need to be seen in the Heart failure clinic. I will see him in the office in 2-4 weeks.
[2018-02-27] MEDS: Potassium Chloride 20 MEQ TAB PO SCH (08:49)
[2018-02-27] MEDS: Amiodarone 200 MG TAB PO SCH ×3 (08:49→21:31)
[2018-02-27] MEDS: Sacubitril 24.5 MG/Valsartan 25.5 MG TABLET PO SCH ×2 (08:50→21:30)
[2018-02-27] MEDS: Apixaban 5 MG TAB PO SCH ×2 (08:50→21:30)
[2018-02-27] MEDS: Magnesium Oxide 400 MG TAB PO SCH ×2 (08:50→21:31)
[2018-02-27] MEDS: Allopurinol 100 MG TAB PO SCH (08:50)
[2018-02-27] MEDS: Cyanocobalamin (Vitamin B-12) 1,000 MCG TAB PO SCH (08:51)
[2018-02-27] MEDS: Senokot S 8.6-50 MG TAB PO SCH ×2 (08:51→21:31)
[2018-02-27] MEDS: Carvedilol 3.125 MG TAB PO SCH ×2 (08:51→17:48)
[2018-02-27] MEDS: Multivitamin W/ Minerals 1 TAB PO SCH (08:51)
[2018-02-27] MEDS: Ferrous Sulfate 325 MG TAB PO SCH (08:51)
[2018-02-27] MEDS: Digoxin 0.125 MG TAB PO SCH (08:51)
[2018-02-27] MEDS: Polyethylene Glycol 3350 17 GM Packet PO SCH (08:52)
[2018-02-27] MEDS: Aspirin 81 mg Enteric Coated Tablet PO SCH (08:52)
[2018-02-27] MEDS: Hydrocortisone 1% Cream 30 GM TUBE TOP SCH ×2 (08:53→21:31)
[2018-02-27] MEDS: Famotidine 20 MG TAB PO SCH ×2 (08:54→21:30)
[2018-02-27] MEDS ORDERED: Digoxin 0.125 MG TAB PO SCH ×2 (09:54→10:00)
[2018-02-27] MEDS ORDERED: Magnesium 2 GM/50 ML 2 GM in Premix Bag 1 BAG IVPB SCH (10:00)
[2018-02-27] MEDS: Metolazone 5 MG TAB PO SCH (10:10)
[2018-02-27] MEDS ORDERED: Amiodarone 200 MG TAB PO SCH ×2 (11:14→11:30)
--- NOTE | 2018-02-27 16:08 | PDOC.PN ---
- Subjective Encounter Start Date: 02/27/18 Encounter Start Time: 12:30 Subjective: pt up in bed no complains - Objective Resuscitation Status: Resuscitation Status FULL:Full Resuscitation Vital Signs & Weight: Vital Signs (12 hours) Temp Pulse Pulse Pulse Resp BP BP 02/27/18 15:41 98.7 F 76 15 02/27/18 12:00 98.5 F 82 17 02/27/18 11:35 82 80 109/75 02/27/18 10:32 79 02/27/18 08:51 79 02/27/18 08:05 79 14 110/70 02/27/18 08:00 02/27/18 07:33 97.7 F 79 14 BP BP Pulse Ox 02/27/18 15:41 95/63 95 02/27/18 12:00 109/75 98 02/27/18 11:35 90/68 02/27/18 10:32 02/27/18 08:51 02/27/18 08:05 02/27/18 08:00 96 02/27/18 07:33 110/70 96 Weight Admit Weight 239 lb 5 oz Weight 201 lb I&O: 02/26/18 02/27/18 02/28/18 06:59 06:59 06:59 Intake Total 236 678 Output Total 1200 1540 Balance -243 -234 Result Diagrams: 02/26/18 04:20 02/27/18 06:44 Phys Exam - Physical Examination Neck: no nodes, no JVD, supple, full ROM Respiratory: no wheezing, no rales, no rhonchi, wheezing present, clear to auscultation bilateral Cardiovascular: RRR, no significant murmur, no rub, gallop, irregular Dx/Plan (1) Acute systolic ACC/AHA stage C congestive heart failure Code(s): I50.21 - ACUTE SYSTOLIC (CONGESTIVE) HEART FAILURE Status: Acute (2) Acute respiratory failure with hypoxia Code(s): J96.01 - ACUTE RESPIRATORY FAILURE WITH HYPOXIA Status: Resolved (3) Hypomagnesemia Code(s): E83.42 - HYPOMAGNESEMIA Status: Acute (4) Obesity (BMI 30-39.9) Code(s): E66.9 - OBESITY, UNSPECIFIED Status: Chronic (5) Severe mitral regurgitation Code(s): I34.0 - NONRHEUMATIC MITRAL (VALVE) INSUFFICIENCY Status: Chronic (6) Atrial fibrillation Code(s): I48.91 - UNSPECIFIED ATRIAL FIBRILLATION Status: Acute Qualifiers: Atrial fibrillation type: chronic Qualified Code(s): I48.2 - Chronic atrial fibrillation Comment: variable rate, on digoxin and elliquis - Plan pt off dopamine drip, he is waiting for his life vest -: bp is low but stable will continue his medication -: possible discharge in am * . Review of Systems - Review of Systems Respiratory: negative: Cough, Dry, Shortness of Breath, Hemoptysis, SOB with Excertion, Pleuritic Pain, Sputum, Wheezing Cardiovascular: negative: chest pain, palpitations, orthopnea, paroxysmal nocturnal dyspnea, edema, light headedness, other Gastrointestinal: negative: Nausea, Vomiting, Abdominal Pain, Diarrhea, Constipation, Melena, Hematochezia, Other Genitourinary: negative: Dysuria, Frequency, Incontinence, Hematuria, Retention , Other - Medications/Allergies Allergies/Adverse Reactions: Allergies Allergy/AdvReac Type Severity Reaction Status Date / Time cucumber Allergy Verified 02/10/18 02:44 melon Allergy Verified 02/10/18 02:44 naproxen AdvReac Stomach Verified 09/22/16 23:08 Ache Medications: Current Medications Acetaminophen (Tylenol) 650 mg PO Q4H PRN PRN Reason: Headache/Fever/Mild Pain (1-3) Last Admin: 02/24/18 15:55 Dose: 650 mg Acetaminophen/Codeine Phosphate (Tylenol #3) 1 tab PO Q4H PRN PRN Reason: Mild Pain (1-3) Acetaminophen/Codeine Phosphate (Tylenol #3) 2 tab PO Q4H PRN PRN Reason: Moderate Pain (4-6) Last Admin: 02/27/18 02:55 Dose: 2 tab Allopurinol (Zyloprim) 100 mg PO DAILY [facility] Last Admin: 02/27/18 08:50 Dose: 100 mg Amiodarone HCl (Cordarone) 400 mg PO TID [facility] Last Admin: 02/27/18 15:46 Dose: 400 mg Apixaban (Eliquis) 5 mg PO BID [facility] Last Admin: 02/27/18 08:50 Dose: 5 mg Artificial Tears (Tears Naturale) 0 drop EA EYE PRN PRN PRN Reason: Dry Eyes Aspirin (Ecotrin) 81 mg PO DAILY [facility] Last Admin: 02/27/18 08:52 Dose: 81 mg Calcium Carbonate (Tums) 1,000 mg PO Q4H PRN PRN Reason: Heartburn or Indigestion Carvedilol (Coreg) 3.125 mg PO BID-[facility] Last Admin: 02/27/18 08:51 Dose: 3.125 mg Cyanocobalamin (Vitamin B-12) 1,000 mcg PO DAILY [facility] Last Admin: 02/27/18 08:51 Dose: 1,000 mcg Digoxin (Lanoxin) [facility] Famotidine (Pepcid) 20 mg PO BID [facility] Last Admin: 02/27/18 08:54 Dose: Not Given Ferrous Sulfate (Feosol) 325 mg PO DAILY [facility] Last Admin: 02/27/18 08:51 Dose: 325 mg Furosemide (Lasix) 40 mg PO 1200 [facility] Last Admin: 02/27/18 12:07 Dose: 40 mg Guaifenesin (Robitussin Sf) 200 mg PO Q4H PRN PRN Reason: Cough Hydralazine HCl (Apresoline) 10 mg SLOW IVP Q4H PRN PRN Reason: Systolic BP > 180 Hydrocortisone/Aloe (Hydrocortisone 1% Cream) 0 gm TOP BID [facility] Last Admin: 02/27/18 08:53 Dose: 1 inch Iron/Minerals/Multivitamins (Theragran M) 1 tab PO DAILY [facility] Last Admin: 02/27/18 08:51 Dose: 1 tab Loperamide HCl (Imodium) 2 mg PO PRN PRN PRN Reason: Diarrhea/Loose Stools Last Admin: 02/15/18 22:04 Dose: 2 mg Loratadine (Claritin) 10 mg PO DAILYPRN PRN PRN Reason: Sinus Symptoms Magnesium Hydroxide (Milk Of Magnesium) 30 ml PO DAILYPRN PRN PRN Reason: Constipation Last Admin: 02/27/18 00:48 Dose: 30 ml Magnesium Oxide (Magnesium Oxide) 400 mg PO BID [facility] Last Admin: 02/27/18 08:50 Dose: 400 mg Mineral Oil/White Petrolatum (Eucerin Cream) 0 gm TOP BIDPRN PRN PRN Reason: Dry Skin Mineral Oil/White Petrolatum (Eucerin Cream) 0 gm TOP BIDPRN PRN PRN Reason: Dry Skin Nitroglycerin (Nitrostat) 0.4 mg SL Q5MIN PRN PRN Reason: Chest Pain Ondansetron HCl (Zofran Odt) 4 mg PO Q6H PRN PRN Reason: Nausea/Vomiting Ondansetron HCl (Zofran) 4 mg IVP Q6H PRN PRN Reason: Nausea/Vomiting Last Admin: 02/15/18 12:27 Dose: 4 mg Phenol (Chloraseptic [place] 180 Ml Bot) 0 ml PO PRN PRN PRN Reason: Sore Throat Polyethylene Glycol (Miralax) 17 gm PO DAILY [facility] Last Admin: 02/27/18 08:52 Dose: 17 gm Potassium Chloride (K-Dur) 40 meq PO QAM-WM [facility] Last Admin: 02/27/18 08:49 Dose: 40 meq Sacubitril/Valsartan (Entresto 24.5 Mg-25.5 Mg Tablet) 1 tab PO BID [facility] Last Admin: 02/27/18 08:50 Dose: 1 tab Senna (Senokot) 2 tab PO HSPRN PRN PRN Reason: Constipation Senna/Docusate Sodium (Senokot S) 2 tab PO BID [facility] Last Admin: 02/27/18 08:51 Dose: 2 tab Sodium Chloride (Flush - Normal Saline) 10 ml IVF Q12H PRN PRN Reason: Saline Flush Last Admin: 02/25/18 08:46 Dose: 10 ml Sodium Chloride (Flush - Normal Saline) 10 ml IVF PRN PRN PRN Reason: Saline Flush Last Admin: 02/22/18 05:15 Dose: 10 ml Sodium Chloride ([place] Nasal [place] 0.65%) 0 ml EA NARE QIDPRN PRN PRN Reason: Nasal Congestion Temazepam (Restoril) 15 mg PO HS PRN PRN Reason: Insomnia Last Admin: 02/23/18 23:59 Dose: 15 mg Thiamine HCl (Thiamine) 100 mg PO DAILY [facility] Last Admin: 02/27/18 08:51 Dose: 100 mg Tramadol HCl (Ultram) 50 mg PO Q6H PRN PRN Reason: Moderate Pain (4-6)
--- NOTE | 2018-02-27 22:23 | PRG ---
DATE OF SERVICE: 02/27/2018 ELECTROPHYSIOLOGY FOLLOWUP NOTE SUBJECTIVE: Mr. Luna seems to be doing better after his cardioversion yesterday. His breathing is easier, still continues to diurese. OBJECTIVE: VITAL SIGNS: Blood pressure is 95/63, heart rate 76, respiration 16, temperature 98.7 degrees Fahrenheit. GENERAL: Alert and oriented man, in no apparent distress. NECK: Supple. Jugular veins not distended. CHEST: Coarse without crackles. CARDIOVASCULAR: Heart sounds are regular to rate and rhythm. No murmur or gallop. ABDOMEN: Benign. Bowel sounds positive. EXTREMITIES: Lower extremities without edema, clubbing or cyanosis. LABORATORY DATA: Reviewed. Hemoglobin 12.6. Sodium 134, potassium 3.8, BUN is 19, creatinine 0.68. The ins and outs reveal -862 mL balance over the last 24 hours. ASSESSMENT AND PLAN: Mr. Luna is a pleasant 62-year-old man with prior history of ETOH abuse who presented with new onset CHF, likely nonischemic cardiomyopathy with extreme fluid overload as well as atrial fibrillation with rapid ventricular rates. He was started on amiodarone and anticoagulation and he underwent CARO guided cardioversion yesterday by Dr. Chow. LVEF is still about 10%-15%. The plan at this point, continue amiodarone therapy for maintenance of sinus rhythm. Also, he will likely continue oral anticoagulation currently started on apixaban. He strongly discouraged to continue alcohol abuse hence the amiodarone therapy. Further heart failure management as per Dr. Chow. I will see this gentleman back in about 3 months after his diagnosis after repeat echo to assess this candidacy for a prophylactic ICD therapy. Also after optimization of heart failure or cardiac function weaning of the amiodarone could be considered if recurrent atrial fibrillation seen. He may be a possible candidate for pulmonary venous isolation procedure in the future. We will follow with you. DONNA
[2018-02-28] MEDS: Acetaminophen/Codeine 30-300mg Tablet PO PRN (01:14)
[2018-02-28 06:25] LABS: Hemoglobin 11.7 g/dL (14.0-18.0); Platelet Count 248 thou/uL (130-400)
[2018-02-28 06:49] LABS: Anion Gap 14 mmol/L (10-20); BUN (Urea Nitrogen) 24 mg/dL (8.4-25.7); Calc. Creatinine Clearance 138 mL/min (70-130); Calcium 8.9 mg/dL (7.8-10.44); Carbon Dioxide 24 mmol/L (23-31); Chloride 99 mmol/L (98-107); Estimated GFR-MDRD Greater than 90; Glucose 117 mg/dL (80-115); Magnesium 1.7 mg/dL (1.6-2.6); Potassium 4.1 mmol/L (3.5-5.1); Sodium 133 mmol/L (136-145)
[2018-02-28] MEDS: Senokot S 8.6-50 MG TAB PO SCH (08:20)
[2018-02-28] MEDS: Polyethylene Glycol 3350 17 GM Packet PO SCH (08:20)
[2018-02-28] MEDS: Ferrous Sulfate 325 MG TAB PO SCH (08:21)
[2018-02-28] MEDS: Potassium Chloride 20 MEQ TAB PO SCH (08:21)
[2018-02-28] MEDS: Carvedilol 3.125 MG TAB PO SCH ×2 (08:21→17:28)
[2018-02-28] MEDS: Cyanocobalamin (Vitamin B-12) 1,000 MCG TAB PO SCH (08:21)
[2018-02-28] MEDS: Magnesium Oxide 400 MG TAB PO SCH (08:21)
[2018-02-28] MEDS: Aspirin 81 mg Enteric Coated Tablet PO SCH (08:21)
[2018-02-28] MEDS: Multivitamin W/ Minerals 1 TAB PO SCH (08:22)
[2018-02-28] MEDS: Apixaban 5 MG TAB PO SCH (08:22)
[2018-02-28] MEDS: Allopurinol 100 MG TAB PO SCH (08:22)
[2018-02-28] MEDS: Amiodarone 200 MG TAB PO SCH ×2 (08:22→15:38)
[2018-02-28] MEDS: Hydrocortisone 1% Cream 30 GM TUBE TOP SCH (08:23)
[2018-02-28] MEDS: Famotidine 20 MG TAB PO SCH (08:23)
--- NOTE | 2018-02-28 08:35 | PDOC.CTH ---
<Miley Segura - Last Filed: 02/28/18 08:33> Cardiology Progress Note - Subjective The pt seen and examined. No overnight events. No cardiac complaints. - Objective Vital Signs Temp Pulse Resp BP BP Pulse Ox 02/28/18 08:22 71 02/28/18 08:05 71 17 108/76 02/28/18 08:00 97.9 F 71 17 108/76 98 02/28/18 04:00 97.5 F L 65 12 91/64 95 02/28/18 00:00 92/58 L Admit Weight 239 lb 5 oz Weight 199 lb 6.4 oz 02/27/18 02/28/18 03/01/18 06:59 06:59 06:59 Intake Total 678 420 Output Total 1540 320 Balance -862 100 - Physical Examination General/Neuro: alert & oriented x3 Neck: no JVD present Lungs: CTA (diminished at bases) Heart: RRR Abdomen: soft Extremities: other: (3+ pitting BLE edema) - Telemetry Telemetry Rhythm: SR 80s - Labs Result Diagrams: 02/28/18 05:10 02/28/18 05:10 Troponin/CKMB CK-MB (CK-2) 6.6 ng/mL (0-6.6) 02/10/18 03:58 Troponin I 0.018 ng/mL (< 0.028) 02/10/18 03:58 - Assessment/Plan 1. Aute on Chronic systolic CHF - EF 10-15% on 02/26/18 which was 15-20% on 12/21. On Entresto BID, Coreg, Lasix 40mg qd, which will be increased to BID from this AM. Metolazone 5 mg qd was d/naila yesterday. On Fluid restriction 1500ml/24hrs. 2. Alcohol induced CMY - S/p LHC with normal coronary arteries. Medical management for now with LifeVest at [place]. On BBlocker and Entresto. Recheck EF with Echo in 3 months to determine candidacy for ICD 3, Afib with S/p CARO and DCCV on 02/26/18 - Remains in SR since 02/26/18. On Amiodarone 400mg TID since 1500 on 02/26/18, Coreg, and Digoxin 0.25mg qd. Coumadin was d/naila and changed to Eliquis 5mg BID. 4. Hyponatremia - improved 5. MR - CARO on 02/26/18 showed mild-mod MR; cont. to monitor 6. ETOH abuse - ETOH cessation education given to the pt. 7. Hypokalemia - stable MAR reviewed. * Most likely the pt will d/c home with LifeVest with current medication. * Recheck EF with Echo within 3 months and If the EF does not improve then plan for an implantable AICD. * Amiodarone dosage: 400mg tid for 1 week, 200 mg tid for 2 weeks, then 200 mg bid until seen back in the office. * He will need to be seen in the Heart failure clinic. The pt will f/u with Dr Chow' office within 2-4 weeks. The pt will bring Patient support program form for Entresto and Rebeccais with income prof to the office at that time. Review of Systems - Review of Systems Constitutional: reports: no symptoms reported EENTM: reports: no symptoms reported Respiratory: reports: no symptoms reported Cardiac (ROS): reports: no symptoms reported ABD/GI: reports: no symptoms reported : reports: no symptoms reported Musculoskeletal: reports: no symptoms reported <Keo Chow - Last Filed: 02/28/18 15:14> Cardiology Progress Note - Objective Vital Signs Temp Pulse Pulse Pulse Resp BP BP 02/28/18 13:00 90 92 103/84 02/28/18 12:00 78 17 02/28/18 08:22 71 02/28/18 08:05 71 17 108/76 02/28/18 08:00 97.9 F 71 17 02/28/18 04:00 97.5 F L 65 12 BP BP Pulse Ox Pulse Ox 02/28/18 13:00 106/72 95 02/28/18 12:00 103/71 97 02/28/18 08:22 02/28/18 08:05 02/28/18 08:00 108/76 98 02/28/18 04:00 91/64 95 Admit Weight 239 lb 5 oz Weight 199 lb 6.4 oz 02/27/18 02/28/18 03/01/18 06:59 06:59 06:59 Intake Total 678 420 Output Total 1540 320 Balance -862 100 - Labs Result Diagrams: 02/28/18 05:10 02/28/18 05:10 Troponin/CKMB CK-MB (CK-2) 6.6 ng/mL (0-6.6) 02/10/18 03:58 Troponin I 0.018 ng/mL (< 0.028) 02/10/18 03:58 - Assessment/Plan pt. seen and eval. by me. I agree with the A/P by the [employer] OF [employer]UC[employer]CR[employer]ARY> He will need to see me in the office in 2-3 weeks. I told him to watch his weight and fluid status. Chest clear. RRR. Hopefully home today after life-vest.
[2018-02-28] MEDS ORDERED: Digoxin 0.125 MG TAB PO SCH (09:00)
[2018-02-28] MEDS: Furosemide 40 MG TAB PO SCH ×2 (09:43→15:02)
--- NOTE | 2018-02-28 09:48 | PRG ---
DATE OF SERVICE: 02/28/2018 SUBJECTIVE: The patient was seen and examined and noted with the following vital signs. PHYSICAL EXAMINATION: VITAL SIGNS: Afebrile, with temperature 98, pulse 91, respiratory rate of 18, O2 sat of 98%, blood p ressure 101/69. HEENT: Unremarkable. CARDIOVASCULAR SYSTEM: First and second heart sounds were heard. RESPIRATORY SYSTEM: Clear to auscultation. DIGESTIVE SYSTEM: Revealed a benign abdomen with positive bowel sounds. EXTREMITIES: No peripheral edema . LABORATORY INVESTIGATION: . IMPRESSION: 1. Hypervolemia, . 2. Cardiac failure. PLAN: as patient is already showing evidence of , discontinue metolazone. Further manage ment to be dependent on the clinical course.
[2018-02-28] MEDS: Sacubitril 24.5 MG/Valsartan 25.5 MG TABLET PO SCH (12:45)
--- NOTE | 2018-02-28 14:25 | PDOC.PN ---
- Subjective Encounter Start Date: 02/28/18 Encounter Start Time: 12:30 Subjective: pt up in bed no complains - Objective Resuscitation Status: Resuscitation Status FULL:Full Resuscitation Vital Signs & Weight: Vital Signs (12 hours) Temp Pulse Resp BP BP Pulse Ox 02/28/18 12:00 78 17 103/71 97 02/28/18 08:22 71 02/28/18 08:05 71 17 108/76 02/28/18 08:00 97.9 F 71 17 108/76 98 02/28/18 04:00 97.5 F L 65 12 91/64 95 Weight Admit Weight 239 lb 5 oz Weight 199 lb 6.4 oz I&O: 02/27/18 02/28/18 03/01/18 06:59 06:59 06:59 Intake Total 678 420 Output Total 1540 320 Balance -862 100 Result Diagrams: 02/28/18 05:10 02/28/18 05:10 Phys Exam - Physical Examination Neck: no nodes, no JVD, supple, full ROM Respiratory: no wheezing, no rales, no rhonchi, wheezing present, clear to auscultation bilateral Cardiovascular: RRR, no significant murmur, no rub, gallop, irregular Gastrointestinal: soft, non-tender, no distention, positive bowel sounds Dx/Plan (1) Acute systolic ACC/AHA stage C congestive heart failure Code(s): I50.21 - ACUTE SYSTOLIC (CONGESTIVE) HEART FAILURE Status: Acute (2) Acute respiratory failure with hypoxia Code(s): J96.01 - ACUTE RESPIRATORY FAILURE WITH HYPOXIA Status: Resolved (3) Hypomagnesemia Code(s): E83.42 - HYPOMAGNESEMIA Status: Acute (4) Obesity (BMI 30-39.9) Code(s): E66.9 - OBESITY, UNSPECIFIED Status: Chronic (5) Severe mitral regurgitation Code(s): I34.0 - NONRHEUMATIC MITRAL (VALVE) INSUFFICIENCY Status: Chronic (6) Atrial fibrillation Code(s): I48.91 - UNSPECIFIED ATRIAL FIBRILLATION Status: Acute Qualifiers: Atrial fibrillation type: chronic Qualified Code(s): I48.2 - Chronic atrial fibrillation Comment: variable rate, on digoxin and elliquis - Plan pt waiting for life vest -: will continue lasix for now * . Review of Systems - Review of Systems Respiratory: negative: Cough, Dry, Shortness of Breath, Hemoptysis, SOB with Excertion, Pleuritic Pain, Sputum, Wheezing Cardiovascular: negative: chest pain, palpitations, orthopnea, paroxysmal nocturnal dyspnea, edema, light headedness, other Gastrointestinal: negative: Nausea, Vomiting, Abdominal Pain, Diarrhea, Constipation, Melena, Hematochezia, Other Genitourinary: negative: Dysuria, Frequency, Incontinence, Hematuria, Retention , Other - Medications/Allergies Allergies/Adverse Reactions: Allergies Allergy/AdvReac Type Severity Reaction Status Date / Time cucumber Allergy Verified 02/10/18 02:44 melon Allergy Verified 02/10/18 02:44 naproxen AdvReac Stomach Verified 09/22/16 23:08 Ache Medications: Current Medications Acetaminophen (Tylenol) 650 mg PO Q4H PRN PRN Reason: Headache/Fever/Mild Pain (1-3) Last Admin: 02/24/18 15:55 Dose: 650 mg Acetaminophen/Codeine Phosphate (Tylenol #3) 1 tab PO Q4H PRN PRN Reason: Mild Pain (1-3) Acetaminophen/Codeine Phosphate (Tylenol #3) 2 tab PO Q4H PRN PRN Reason: Moderate Pain (4-6) Last Admin: 02/28/18 01:14 Dose: 2 tab Allopurinol (Zyloprim) 100 mg PO DAILY [facility] Last Admin: 02/28/18 08:22 Dose: 100 mg Amiodarone HCl (Cordarone) 400 mg PO TID [facility] Last Admin: 02/28/18 08:22 Dose: 400 mg Apixaban (Eliquis) 5 mg PO BID [facility] Last Admin: 02/28/18 08:22 Dose: 5 mg Artificial Tears (Tears Naturale) 0 drop EA EYE PRN PRN PRN Reason: Dry Eyes Aspirin (Ecotrin) 81 mg PO DAILY [facility] Last Admin: 02/28/18 08:21 Dose: 81 mg Calcium Carbonate (Tums) 1,000 mg PO Q4H PRN PRN Reason: Heartburn or Indigestion [facility] Last Admin: 02/28/18 08:21 Dose: 3.125 mg Cyanocobalamin (Vitamin B-12) 1,000 mcg PO DAILY [facility] Last Admin: 02/28/18 08:21 Dose: 1,000 mcg Digoxin (Lanoxin) 0.125 mg PO QAM [facility] Last Admin: 02/28/18 08:22 Dose: 0.125 mg Famotidine (Pepcid) 20 mg PO BID [facility] Last Admin: 02/28/18 08:23 Dose: Not Given Ferrous Sulfate (Feosol) 325 mg PO DAILY [facility] Last Admin: 02/28/18 08:21 Dose: 325 mg Furosemide (Lasix) 40 mg PO 0900,1400 [facility] Last Admin: 02/28/18 09:43 Dose: 40 mg Guaifenesin (Robitussin Sf) 200 mg PO Q4H PRN PRN Reason: Cough Hydralazine HCl (Apresoline) 10 mg SLOW IVP Q4H PRN PRN Reason: Systolic BP > 180 Hydrocortisone/Aloe (Hydrocortisone 1% Cream) 0 gm TOP BID [facility] Last Admin: 02/28/18 08:23 Dose: 1 inch Iron/Minerals/Multivitamins (Theragran M) 1 tab PO DAILY [facility] Last Admin: 02/28/18 08:22 Dose: 1 tab Loperamide HCl (Imodium) 2 mg PO PRN PRN PRN Reason: Diarrhea/Loose Stools Last Admin: 02/15/18 22:04 Dose: 2 mg Loratadine (Claritin) 10 mg PO DAILYPRN PRN PRN Reason: Sinus Symptoms Magnesium Hydroxide (Milk Of Magnesium) 30 ml PO DAILYPRN PRN PRN Reason: Constipation Last Admin: 02/27/18 00:48 Dose: 30 ml Magnesium Oxide (Magnesium Oxide) 400 mg PO BID [facility] Last Admin: 02/28/18 08:21 Dose: 400 mg Mineral Oil/White Petrolatum (Eucerin Cream) 0 gm TOP BIDPRN PRN PRN Reason: Dry Skin Mineral Oil/White Petrolatum (Eucerin Cream) 0 gm TOP BIDPRN PRN PRN Reason: Dry Skin Nitroglycerin (Nitrostat) 0.4 mg SL Q5MIN PRN PRN Reason: Chest Pain Ondansetron HCl (Zofran Odt) 4 mg PO Q6H PRN PRN Reason: Nausea/Vomiting Ondansetron HCl (Zofran) 4 mg IVP Q6H PRN PRN Reason: Nausea/Vomiting Last Admin: 02/15/18 12:27 Dose: 4 mg Phenol (Chloraseptic [place] 180 Ml Bot) 0 ml PO PRN PRN PRN Reason: Sore Throat Polyethylene Glycol (Miralax) 17 gm PO DAILY [facility] Last Admin: 02/28/18 08:20 Dose: 17 gm Potassium Chloride (K-Dur) 40 meq PO QAM-WM [facility] Last Admin: 02/28/18 08:21 Dose: 40 meq Sacubitril/Valsartan (Entresto 24.5 Mg-25.5 Mg Tablet) 1 tab PO BID [facility] Last Admin: 02/28/18 12:45 Dose: 1 tab Senna (Senokot) 2 tab PO HSPRN PRN PRN Reason: Constipation Senna/Docusate Sodium (Senokot S) 2 tab PO BID [facility] Last Admin: 02/28/18 08:20 Dose: 2 tab Sodium Chloride (Flush - Normal Saline) 10 ml IVF Q12H PRN PRN Reason: Saline Flush Last Admin: 02/25/18 08:46 Dose: 10 ml Sodium Chloride (Flush - Normal Saline) 10 ml IVF PRN PRN PRN Reason: Saline Flush Last Admin: 02/22/18 05:15 Dose: 10 ml Sodium Chloride ([place] Nasal [place] 0.65%) 0 ml EA NARE QIDPRN PRN PRN Reason: Nasal Congestion Temazepam (Restoril) 15 mg PO HS PRN PRN Reason: Insomnia Last Admin: 02/23/18 23:59 Dose: 15 mg Thiamine HCl (Thiamine) 100 mg PO DAILY [facility] Last Admin: 02/28/18 08:21 Dose: 100 mg Tramadol HCl (Ultram) 50 mg PO Q6H PRN PRN Reason: Moderate Pain (4-6)
[2018-02-28 15:42] VITALS: BP 109/75; TEMP 97.5
--- NOTE | 2018-02-28 22:41 | ECHO ---
INDICATION FOR PROCEDURE: A 62-year-old patient with a severe cardiomyopathy, severe decrease in lef t systolic function with atrial fibrillation which has been with associated rapid ventricular respons e. It was felt that he needed to go and early cardioversion to hopefully get some better improvement in cardiac output due to this loss of the atrial kick. This may be improved if this was reinstated. He was taken to recovery area where he underwent short acting propofol anesthesia without difficultie s or complications. Transesophageal probe was easily passed down the distal esophagus. IMPRESSIONS are as follows 1. Moderate increase in left atrial size, 4.9 cm in diameter. 2. Smoke formation of the left atrium. There was no evidence of left atrial or left atrial appendag e thrombus. 3. Severe decrease in left ventricular systolic function. Ejection fraction 15-20%. 4. Moderate to severe mitral valve regurgitation. 5. Mild aortic valve regurgitation. 6. Moderate tricuspid valve regurgitation. The patient then underwent an electrical cardioversion of the atrial fibrillation with one shock at 2 50 joules were successful to convert him back to normal sinus rhythm. There were no complications or difficulties.
--- NOTE | 2018-02-28 23:36 | DIS ---
DATE OF ADMISSION: 02/10/2018 DATE OF DISCHARGE: 02/28/2018 DISCHARGE DIAGNOSES: As of the followin. Acute on chronic systolic heart failure, nonischemic. 2. Acute respiratory failure with hypoxia. 3. Hypomagnesemia. 4. Obesity. 5. Severe mitral regurgitation. 6. Atrial fibrillation. 7. Alcohol use. HOSPITAL COURSE: The patient is a 62-year-old male with a history of alcohol abuse who initially cam e into the hospital on 02/10/2018 with complaints of shortness of breath. The patient also had notic ed some lower extremity worsening edema. He initially was admitted into the IMCU and was put on IV d iuretics. The patient continued to improve throughout the hospital stay, he had an echocardiogram wh ich indicated an EF of 15%-20% with severe mitral regurgitation. Since prior to doing the catheteriz ation, the patient continued to have hypotension and we were not able to diurese him significantly an d the patient could not lie flat, so he was put initially on dobutamine drip in addition to the Lasix which was continued. The patient tolerated the dobutamine drip well. He eventually had a cardiac c atheterization, which indicated no structural abnormalities indicated medical management. The patien t continued to improve throughout the hospital stay. There was a period of time where he did require dopamine drip for his low blood pressure which he has been off of it. The patient also while in the hospital, had atrial fibrillation, he was seen by EP. He was rate controlled and also was cardiover debbie and he was put on Eliquis. He was cardioverted given his poor ejection fraction and for symptoma tic management. He apparently per note, he is a poor candidate for ablation. He also was sent home with a LifeVest and also with anticoagulants which was Eliquis. DISCHARGE MEDICATIONS: His home medications will be as following: He will be on allopurinol 100 mg daily, Eliquis 5 b.i.d., aspirin 81 mg daily, Coreg 3.125 mg b.i.d., digoxin 0.125 mg daily, Lasix 40 mg b.i.d., magnesium oxide 40 b.i.d. Dick 1 b.i.d., vitamin B12 of 1000 daily, iron 325 daily, mu ltivitamin 1 daily, thiamine 100 mg daily. He was asked to refrain from alcohol use. He will follow up with Heart Failure Clinic. He will also follow up with Cardiology as an outpatient. His H&H con tinued to be stable through the hospital stay. His electrolytes also were stable. PHYSICAL EXAMINATION: VITAL SIGNS: His vitals are temperature 97.7, pulse 82, respirations 18, blood pressure 109/75. GENERAL: He is awake, alert, oriented x3, does not appear in any distress. CARDIOVASCULAR: S1, S2 present. No murmurs, rubs or gallops. ABDOMEN: Soft, nontender. Bowel sounds present x2. EXTREMITIES: Mild lower extremity edema. LUNGS: Clear to auscultation. Again, he will be discharged home. He will follow up with his primary and heart failure. Also, I parker ve added potassium 20 mEq daily, and also he has been written a script for amiodarone per Cardiology' s recommendations from the last note.
== END 2018-02-28 17:56 | disposition home or self-care (01) | DRG 286 ==
LOC: ERS 21:27 → IMCU/EMU 02-10 00:43 → 2NO 02-11 15:42
PROVIDERS: ADMIT Internal Medicine; ATTEND Internal Medicine
PROC: 4A023N7 Measurement of Cardiac Sampling and Pressure, Left Heart, Percutaneous Approach (ICD-10-PCS; principal; 2018-02-24)
PROC: B2111ZZ Fluoroscopy of Multiple Coronary Arteries using Low Osmolar Contrast (ICD-10-PCS; 2018-02-24)
PROC: B2151ZZ Fluoroscopy of Left Heart using Low Osmolar Contrast (ICD-10-PCS; 2018-02-24)
PROC: 5A2204Z Restoration of Cardiac Rhythm, Single (ICD-10-PCS; 2018-02-26)
DX: I11.0 Hypertensive heart disease with heart failure (principal); J96.01 Acute respiratory failure with hypoxia; I50.21 Acute systolic (congestive) heart failure; E87.1 Hypo-osmolality and hyponatremia; E87.2 Acidosis; I47.2 Ventricular tachycardia; N17.9 Acute kidney failure, unspecified; I48.1 Persistent atrial fibrillation; E83.42 Hypomagnesemia; E66.9 Obesity, unspecified; I48.2 Chronic atrial fibrillation; Z79.01 Long term (current) use of anticoagulants; E87.6 Hypokalemia; F10.20 Alcohol dependence, uncomplicated; E79.0 Hyperuricemia without signs of inflammatory arthritis and tophaceous disease; K57.90 Diverticulosis of intestine, part unspecified, without perforation or abscess without bleeding; Z68.34 Body mass index [BMI] 34.0-34.9, adult; I25.10 Atherosclerotic heart disease of native coronary artery without angina pectoris; Z91.81 History of falling; E78.5 Hyperlipidemia, unspecified; D64.9 Anemia, unspecified; F41.9 Anxiety disorder, unspecified; F31.9 Bipolar disorder, unspecified; I08.3 Combined rheumatic disorders of mitral, aortic and tricuspid valves; E86.1 Hypovolemia; I50.82 Biventricular heart failure; E87.5 Hyperkalemia; G47.33 Obstructive sleep apnea (adult) (pediatric); I42.6 Alcoholic cardiomyopathy
CPT/HCPCS: 36415; 51702; 71045; 76705; 80048; 80053; 80061; 80069; 80162; 81003; 81015; 82533; 82553; 82570; 83605; 83735; 83880; 83930; 83935; 84156; 84300; 84443; 84484; 84550; 85014; 85018; 85025; 85049; 85610; 85730; 87040; 87086; 90471; 90670; 90686; 92960; 93005; 93306; 93312; 93458; 93798; 94760; 96361; 96365; 96366; 96372; 96375; C1769; G0008; G0009; G8978-GP-CL; G8979-GP-CI; J0282; J1160; J1250; J1265; J1644; J1650; J1940; J2001; J2405; J2543; J2704; J3370; J3475; J7050; J7070